=== PATIENT | female | born 1970 | race Caucasian/White ===

== ENCOUNTER 2021-05-16 20:50 | Inpatient (IN) ==
[2021-05-16] MEDS ORDERED: SODIUM CHLORIDE 0.9% 1000ML 1,000 ML IV ONE (22:42)
[2021-05-16 23:15] LABS: Hematocrit (blood only) 22.1 % (37-47); Hemoglobin 6.6 g/dL (12.0-16.0); Mean Corpuscular Hemoglobin 28.4 pg (25-34); Mean Corpuscular Hgb Conc 29.9 g/dL (32-36); Mean Corpuscular Volume 95.3 fL (80-100); Mean Platelet Volume 9.5 fL (7.4-10.4); Nucleated RBC # (auto) 0.17 K/uL (0-0); Platelet Count 312 K/uL (130-400); RDW Standard Deviation 56.4 fL (36.4-46.3); Red Blood Count 2.32 M/uL (4.2-5.4); White Blood Count 17.63 K/uL (4.8-10.8)
[2021-05-16] MEDS ORDERED: SODIUM CHLORIDE 0.9% 250 ML IV PRN (23:19)
[2021-05-16 23:25] LABS: Partial Thromboplastin Ratio 0.8; Partial Thromboplastin Time 21.9 Seconds (21.0-31.0); Prothrombin Time 10.6 Seconds (9.0-12.0)
[2021-05-16 23:29] LABS: Alanine Aminotransferase 19 U/L (12-78); Aspartate Aminotransferase 13 U/L (15-37); BUN Creatinine Ratio 10.9 (10-20); Blood Urea Nitrogen 18 mg/dl (7-18); Calcium 8.4 mg/dl (8.5-10.1); Carbon Dioxide 25 mmol/L (21-32); Chloride 106 mmol/L (98-107); Est GFR (African American) 41.6 ml/min; Est GFR (Non-African American) 35.9 ml/min; Glucose 153 mg/dl (70-99); Potassium 4.2 mmol/L (3.5-5.1); Sodium 136 mmol/L (136-145)
[2021-05-16 23:32] LABS: Albumin Globulin Ratio 0.8 (0.9-2); Alkaline Phosphatase 90 U/L (45-117); Basophils # (auto) 0.03 K/uL (0-0.2); Basophils % (auto) 0.2 %; Bilirubin,Total 0.2 mg/dl (0.2-1); Eosinophils # (auto) 0.03 K/uL (0-0.5); Eosinophils % (auto) 0.2 %; Globulin 3.6 gm/dl (2.5-4.0); Hypochromasia Present; Immature Granulocytes # (auto) 0.07 K/uL (0.00-0.02); Immature Granulocytes % (auto) 0.4 %; Lymphocytes # (auto) 1.99 K/uL (1.2-3.4); Lymphocytes % (auto) 11.3 %; Monocytes % (auto) 4.5 %; Neutrophils # (auto) 14.71 K/uL (1.4-6.5); Neutrophils % (auto) 83.4 %; Polychromasia 1+; Total Protein 6.6 gm/dl (6.4-8.2)
[2021-05-16 23:47] LABS: Pregnancy Test, Serum Negative (Negative)
--- NOTE | 2021-05-17 01:46 | Emergency Department Note ---
History of Present Illness General Chief complaint: Vaginal Bleeding Stated complaint: WEAKNESS, HEAVY VAGINAL BLEEDING Time Seen by Provider: 05/16/21 22:35 History of Present Illness This 50-year-old presents to the ER complaining of heavy vaginal bleeding who feels lightheaded and dizzy now Location: Generalized Quality: Lightheaded Severity: Moderate Duration: Past week Timing: Started a week ago Context: Patient was concerned and came in Modifying factors: better with rest; worse with activity No prior blood transfusion. She has had iron transfusions in the past. Patient denies chest pain, dyspnea, abdominal pain, numbness, tingling. Patient states she has been seeing OB and is supposed to get a cervical ablation for her heavy menstrual cycles. Home Medications Medication Instructions Recorded Confirmed Type amlodipine 5 mg tablet 5 mg PO DAILY 05/17/21 05/17/21 History atorvastatin 20 mg tablet 20 mg PO DAILY 05/17/21 05/17/21 History bupropion HCl 200 mg tablet,12 hr 200 mg PO BID 05/17/21 05/17/21 History sustained-release cyclobenzaprine 10 mg tablet 10 mg PO BID 05/17/21 05/17/21 History furosemide 20 mg tablet 20 mg PO DAILY PRN 05/17/21 05/17/21 History levothyroxine 75 mcg tablet 75 mcg PO DAILYBB 05/17/21 05/17/21 History losartan 100 mg tablet 100 mg PO DAILY 05/17/21 05/17/21 History metformin 500 mg tablet 500 mg PO BID 05/17/21 05/17/21 History metoprolol succinate 100 mg 100 mg PO DAILY 05/17/21 05/17/21 History tablet,extended release 24 hr oxycodone 10 mg tablet 10 mg PO QID PRN 05/17/21 05/17/21 History Allergies Allergy/AdvReac Type Severity Reaction Status Date / Time acetaminophen Allergy Unknown Delayed Verified 05/17/21 00:21 (days later) hangover effect aspirin Allergy Unknown . Verified 05/17/21 00:21 hydrocodone Allergy Unknown Delayed Verified 05/17/21 00:21 (days later) hangover effect red dye Allergy Unknown Itchiness Verified 05/17/21 00:21 and hives Past Med/Surg History Medical History High blood pressure Surgical History History of orthopedic surgery Social History Smoking Status: Never smoker Preferred Language: Ukrainian Feels Safe at Home: Yes Review of Systems A total of 10 systems reviewed and were otherwise negative Physical Exam Vital Signs Vital Signs - 24 hr 05/16/21 21:04 05/16/21 23:02 05/16/21 23:03 Temperature 36.5 C Temperature Source Oral Pulse Rate 67 Pulse Rate [Apical] 69 Respiratory Rate 18 18 Respiratory Depth Normal Blood Pressure 92/52 L Blood Pressure [Left Arm] 140/70 Blood Pressure Mean 65 Blood Pressure Mean [Left Arm] 93 Pulse Oximetry 100 97 98 Oxygen Delivery Method Room Air Room Air Room Air Sepsis Recent Fever Within 48 Hours No Sepsis New/Unexplained Change in Mental Status N/A Sepsis Action Taken by Nursing No Action Required VITALS: Vitals are noted on the nurse's note and reviewed by myself. Vital signs stable. GENERAL: Pleasant female, in no acute distress, nondiaphoretic, well-developed well-nourished. SKIN: Capillary reflex less than 2 seconds. HEENT: Normocephalic. PERRLA. EOMI. Nares patent. Mucous membranes moist. Neck is supple without nuchal rigidity. HEART: Regular rate and rhythm without murmurs gallops or rubs. LUNGS: Clear to auscultation bilaterally without wheezes, rales or rhonchi. No retractions or accessory muscle use. ABDOMEN: Positive bowel sounds x 4. Normal tympanic percussion. Soft, nontender, without masses or organomegaly. Rothman sign negative. No guarding or rebound tenderness. MUSCULOSKELETAL: No gross musculoskeletal defects. NEURO: Patient was alert and oriented to person place and time. No focal neurological deficits. Course Administered Medications Discontinued Medications Sodium Chloride (Nss 1000ml) 1,000 mls @ 999 mls/hr IV .Q1H1M ONE Stop: 05/16/21 23:42 Last Admin: 05/16/21 23:02 Dose: 999 mls/hr Documented by: [id number] Medical Decision Making Medical Records Attestation: I reviewed the patient's medical records. Home Medications Current Medication List: was personally reviewed by me Laboratory Data Attestation: I reviewed the patient's lab results. Result diagrams: 05/16/21 22:55 05/16/21 22:55 Lab Results 05/16/21 05/16/21 05/16/21 Range/Units 22:55 22:55 22:55 WBC 17.63 H (4.8-10.8) K/uL RBC 2.32 L (4.2-5.4) M/uL Hgb 6.6 L* (12.0-16.0) g/dL Hct 22.1 L (37-47) % MCV 95.3 (80-100) fL MCH 28.4 (25-34) pg MCHC 29.9 L (32-36) g/dL RDW Std Deviation 56.4 H (36.4-46.3) fL RDW Coeff of Raul 17.0 H (11.5-14.5) % Plt Count 312 (130-400) K/uL MPV 9.5 (7.4-10.4) fL Immature Gran % (Auto) 0.4 % Neut % (Auto) 83.4 % Lymph % (Auto) 11.3 % [place] % (Auto) 4.5 % Eos % (Auto) 0.2 % Baso % (Auto) 0.2 % Neut # (Auto) 14.71 H (1.4-6.5) K/uL Lymph # (Auto) 1.99 (1.2-3.4) K/uL [place] # (Auto) 0.80 H (0.11-0.59) K/uL Eos # (Auto) 0.03 (0-0.5) K/uL Baso # (Auto) 0.03 (0-0.2) K/uL Immature Gran # (Auto) 0.07 H (0.00-0.02) K/uL Absolute Nucleated RBC 0.17 H (0-0) K/uL Nucleated RBC % (auto) 1.0 % Polychromasia 1+ Hypochromasia Present PT 10.6 (9.0-12.0) Seconds INR 1.0 (0.9-1.1) APTT 21.9 (21.0-31.0) Seconds PTT Ratio 0.8 Sodium (136-145) mmol/L Potassium (3.5-5.1) mmol/L Chloride (98-107) mmol/L Carbon Dioxide (21-32) mmol/L Anion Gap (3-11) BUN (7-18) mg/dl Creatinine (0.6-1.2) mg/dl Est Cr Clr Drug Dosing Est GFR ( Amer) ml/min Est GFR (Non-Af Amer) ml/min BUN/Creatinine Ratio (10-20) Glucose (70-99) mg/dl Calcium (8.5-10.1) mg/dl Total Bilirubin (0.2-1) mg/dl AST (15-37) U/L ALT (12-78) U/L Alkaline Phosphatase (45-117) U/L Total Protein (6.4-8.2) gm/dl Albumin (3.4-5.0) gm/dl Globulin (2.5-4.0) gm/dl Albumin/Globulin Ratio (0.9-2) HCG, Qual (Negative) Blood Type O Positive Blood Type Recheck Antibody Screen NEGATIVE Crossmatch See Detail 05/16/21 05/16/21 05/17/21 Range/Units 22:55 22:55 00:24 WBC (4.8-10.8) K/uL RBC (4.2-5.4) M/uL Hgb (12.0-16.0) g/dL Hct (37-47) % MCV (80-100) fL MCH (25-34) pg MCHC (32-36) g/dL RDW Std Deviation (36.4-46.3) fL RDW Coeff of Raul (11.5-14.5) % Plt Count (130-400) K/uL MPV (7.4-10.4) fL Immature Gran % (Auto) % Neut % (Auto) % Lymph % (Auto) % [place] % (Auto) % Eos % (Auto) % Baso % (Auto) % Neut # (Auto) (1.4-6.5) K/uL Lymph # (Auto) (1.2-3.4) K/uL [place] # (Auto) (0.11-0.59) K/uL Eos # (Auto) (0-0.5) K/uL Baso # (Auto) (0-0.2) K/uL Immature Gran # (Auto) (0.00-0.02) K/uL Absolute Nucleated RBC (0-0) K/uL Nucleated RBC % (auto) % Polychromasia Hypochromasia PT (9.0-12.0) Seconds INR (0.9-1.1) APTT (21.0-31.0) Seconds PTT Ratio Sodium 136 (136-145) mmol/L Potassium 4.2 (3.5-5.1) mmol/L Chloride 106 (98-107) mmol/L Carbon Dioxide 25 (21-32) mmol/L Anion Gap 5.0 (3-11) BUN 18 (7-18) mg/dl Creatinine 1.63 H (0.6-1.2) mg/dl Est Cr Clr Drug Dosing Not Reportable Est GFR ( Amer) 41.6 ml/min Est GFR (Non-Af Amer) 35.9 ml/min BUN/Creatinine Ratio 10.9 (10-20) Glucose 153 H (70-99) mg/dl Calcium 8.4 L (8.5-10.1) mg/dl Total Bilirubin 0.2 (0.2-1) mg/dl AST 13 L (15-37) U/L ALT 19 (12-78) U/L Alkaline Phosphatase 90 (45-117) U/L Total Protein 6.6 (6.4-8.2) gm/dl Albumin 3.0 L (3.4-5.0) gm/dl Globulin 3.6 (2.5-4.0) gm/dl Albumin/Globulin Ratio 0.8 L (0.9-2) HCG, Qual Negative (Negative) Blood Type Blood Type Recheck O Positive Antibody Screen Crossmatch Imaging Data Attestation: I personally reviewed and interpreted this imaging study as follows: MDM Narrative Prior records/ancillary studies reviewed. Triage Nursing notes reviewed. Additional history obtained from nursing The patient's history was concerning for vaginal bleeding and abdominal pain. Differential diagnosis: Etiologies such as ectopic , dysfunction uterine bleeding, bleeding dyscrasia, trauma, infection, as well as others were entertained. Physical examination: As above. Vitals signs revealed stable. ER treatment provided: IV fluids, patient was typed and crossmatched for 2 units. Patient was consented On reassessment the patient felt better. Diagnostic interpretation by me: The labs revealed the Patient was more anemic than baseline. I did review the [facility] system Patient was typed and crossmatched for 2 units Imaging studies: US PELVIC/ENDOVAG: Limited examination due to patient cooperation and body habitus. Enlarged uterus measuring 10.9 x 6.8 x 7.1 cm. Diffuse thickening of the endometrial echo complex which measures 2.8 cm in thickness. There is internal vascularity. Differential considerations include endometrial hyperplasia, carcinoma, and polyp. Right ovary not visualized. Left ovary visualized only on transabdominal images and without discrete abnormality. No evidence of adnexal mass. No free fluid. Radiologist: Kimberlyn Hurtado M.D. Consultation: A consultation was placed with hospitalist the case was discussed and diagnostics were reviewed. Patient will be admitted to their service. This appears to be consistent with symptomatic anemia with persistent vaginal bleeding for quite some time. Patient was typed and crossmatched for 2 units. She was consented. Medicine was consulted. She will be evaluated for admission. By the evaluation outlined above emergent etiologies such as bleeding dyscrasia, ectopic , trauma, as well as others were deemed relatively unlikely. The pt informed about the findings as listed above. All questions were answered and pleased with the treatment. The chart was completed utilizing [employer] Speech voice recognition software. Grammatical errors, random word insertions, pronoun errors, and incomplete sentences are an occassional consequence of this system due to software limitations, ambient noise, and hardware issues. Any formal questions or concerns about the content, text, or information contained within the body of this dictation should be directly addressed to the physician assistant loan processor for clarification. Impression & Plan Anemia, Dysfunctional uterine bleeding Discharge Plan Visit Data Chief Complaint: Vaginal Bleeding Stated Complaint: WEAKNESS, HEAVY VAGINAL BLEEDING ED Provider: Dionicio Paz ED Midlevel Provider: Dilma Barraza Discharge Problem: Anemia, Dysfunctional uterine bleeding Patient Disposition: Admitted As Inpatient Condition: Fair Forms Stand Alone Forms: My [facility] [employer] Prescriptions Prescriptions: No Action cyclobenzaprine 10 mg tablet 10 mg PO BID RF: 0 atorvastatin 20 mg tablet 20 mg PO DAILY RF: 0 oxycodone 10 mg tablet 10 mg PO QID PRN (Reason: Severe Pain (Scale Score 7-10)) RF: 0 metoprolol succinate 100 mg tablet extended release 24 hr 100 mg PO DAILY RF: 0 levothyroxine 75 mcg tablet 75 mcg PO DAILYBB RF: 0 losartan 100 mg tablet 100 mg PO DAILY RF: 0 furosemide 20 mg tablet 20 mg PO DAILY PRN (Reason: Fluid Retention) RF: 0 bupropion HCl 200 mg tablet sustained-release 12 hr 200 mg PO BID RF: 0 metformin 500 mg tablet 500 mg PO BID RF: 0 amlodipine 5 mg tablet 5 mg PO DAILY RF: 0 Referrals Referrals: Jonathan Wild DO [Primary Care Provider] -
--- NOTE | 2021-05-17 04:20 | History and Physical Report ---
DATE OF ADMISSION: 05/17/2021. CHIEF COMPLAINT: Anemia and vaginal bleeding. HISTORY OF PRESENT ILLNESS: A 50-year-old female with past medical history significant for hypothyroidism; prediabetes; polycystic ovary; benign neoplasm of pituitary gland; allergic rhinitis; asthma, mild intermittent, well controlled; hypertension; morbid obesity; iron deficiency anemia; chronic kidney disease stage III; excessive bleeding in premenopausal period; fibromyalgia; osteoarthritis; depression; history of chronic narcotic use. Presents with heavy vaginal bleeding. The patient says she is anemic for 2 years. She was supposed to follow with [facility] and RICHARD guo. Currently she is trying to get appointment with [facility] [facility], but could not get because they are backed up. Since last one week, she is having heavy menstrual bleeding, heavy periods, and she was feeling dizzy when getting up and she called [facility] [facility] office and was advised to come to the ER. Currently resting comfortably and hemodynamically stable. Denies any shortness of breath, no chest pain. She says she gets pounding feeling in the head. No blurred visions. Has some runny nose. No sore throat, no cough, no difficulty swallowing. Appetite is okay. No chest pain. Had some chest discomfort last week, but currently no chest pain, no abdominal pain currently. Sometimes gets abdominal cramps. Normal bowel and bladder movements. Denies any blood in stool or black stools. Denies any hematuria or burning micturitions. No rash. ALLERGIES: ACETAMINOPHEN, ASPIRIN, HYDROCODONE, RED DYE. PAST MEDICAL HISTORY: As mentioned above. PAST SURGICAL HISTORY: Biopsy of uterus, carpal tunnel surgery, repair of the ruptured Achilles tendon. MEDICATIONS: The patient is on amlodipine 5 mg p.o. daily, atorvastatin 20 mg p.o. daily, bupropion 200 mg p.o. b.i.d., cyclobenzaprine 10 mg p.o. b.i.d., Lasix 20 mg p.o. daily p.r.n., levothyroxine 75 mcg p.o. daily, losartan 100 mg p.o. daily, metformin 500 mg p.o. b.i.d., metoprolol succinate 100 mg p.o. daily, oxycodone 10 mg p.o. q.i.d. p.r.n. FAMILY HISTORY: Significant for mother has arthritis and breast cancer, father has heart disorder and kidney disease, sister has psoriasis. SOCIAL HISTORY: No smoking. Alcohol, rarely. No drug use. REVIEW OF SYSTEMS: As per HPI. Rest of review of systems is negative. PHYSICAL EXAMINATION: GENERAL: The patient is obese, not in acute distress. VITAL SIGNS: Temperature 36.8, pulse 76, respiratory rate 18, blood pressure 115/67, oxygen 99% on room air. HEENT: Pupils equal, round and reactive to light. Oral mucosa moist. NECK: No JVD, no neck masses. CARDIOVASCULAR: S1 and S2 heard. Regular rate and rhythm. No murmur, no gallop. RESPIRATORY SYSTEM: Normal AP diameter. No accessory muscle use. No wheezing, no crackles. ABDOMEN: Soft, bowel sounds present, nontender, no distention. CENTRAL NERVOUS SYSTEM: Cranial nerves II-XII grossly intact, nonfocal. EXTREMITIES: No edema, no erythema. LABORATORY DATA: WBC 17.6, hemoglobin 6.6, hematocrit 22.1, platelets 312. PT 10.6, INR 1, APTT 21.9. Sodium 136, potassium 4.2, chloride 106, bicarb 25, BUN 18, creatinine 1.6, serum glucose 153, calcium 8.4, total bilirubin 0.2, AST 13, ALT 19, alkaline phosphatase 90. IMAGING DATA: Pelvic ultrasound results pending. ASSESSMENT AND PLAN: This is a 50-year-old female who presents with ongoing vaginal bleeding and anemia. 1. Acute blood loss anemia from vaginal bleeding: ER ordered 2 units of PRBCs, which we will give and then follow H and H q. 6 hours. She has symptomatic anemia with dizziness. Monitor in the med tele. 2. Heavy vaginal bleeding: Await pelvic ultrasound report. Consult [facility] [facility]. We will keep n.p.o. until seen by [facility]. 3. Acute kidney injury on chronic kidney disease stage III: Baseline creatinine of 1, presently with creatinine of 1.6. Getting fluids. Avoid any nephrotoxic agents. Follow the labs in the a.m. 4. History of diabetes: Hold metformin. Placed on insulin sliding scale. Follow the blood sugars. 5. History of hypotension: Continue her amlodipine. Will hold the losartan. Continue metoprolol succinate. Will monitor the blood pressure. Holding losartan for acute kidney injury. 6. Depression: Continue bupropion. 7. Hyperlipidemia: Continue statin. 8. Prediabetes: Holding metformin. Follow HbA1c levels, Placed on insulin sliding scale. 9. Deep venous thrombosis prophylaxis: Sequential compression devices. DISPOSITION: Closely monitor in the med tele. Expect to discharge home and follow with family doctor. Job ID: [id number] SCARLETT
[2021-05-17] MEDS ORDERED: oxyCODONE HCL IR 5 MG TAB (IMMEDIATE RELEASE) PO PRN (05:11)
[2021-05-17] MEDS ORDERED: FUROSEMIDE 20 MG TAB PO PRN ×2 (05:11)
[2021-05-17] MEDS ORDERED: NITROGLYCERIN SL 0.4 MG/TAB TAB SL PRN (05:11)
[2021-05-17] MEDS ORDERED: POLYETHYLENE (MIRALAX) 17 GM PACK PO PRN (05:11)
[2021-05-17] MEDS ORDERED: SODIUM CHLORIDE 0.9% 250 ML IV PRN (05:11)
[2021-05-17] MEDS ORDERED: ONDANSETRON INJ 2 MG/ML 2 ML VIAL IV PRN (05:11)
[2021-05-17] MEDS: SODIUM CHLORIDE 0.9% 1000ML 1,000 ML IV SCH ×3 (06:22→23:20)
[2021-05-17 07:57] LABS: Estimated Average Glucose 108 mg/dl; Hemoglobin A1C 5.4 % (4.5-5.6)
[2021-05-17] MEDS: INSULIN ASPART 100 UNITS/ML 3 ML PEN SC SCH ×4 (08:36→20:49)
[2021-05-17] MEDS: METOPROLOL SUCC 50MG EXT REL TAB PO SCH (08:37)
[2021-05-17] MEDS: LEVOTHYROXINE SODIUM 75 MCG TABLET PO SCH (08:38)
[2021-05-17] MEDS: ATORVASTATIN 20 MG TAB PO SCH (08:38)
[2021-05-17] MEDS: amLODIPine BESYLATE 5 MG TAB PO SCH (08:38)
[2021-05-17] MEDS: buPROPion SR 100 MG TABCR PO SCH ×2 (08:38→20:47)
[2021-05-17] MEDS: CYCLOBENZAPRINE HCL 10 MG TAB PO SCH ×3 (08:38→21:06)
[2021-05-17] MEDS ORDERED: LOSARTAN POTASSIUM 50 MG TAB PO SCH ×2 (09:00)
--- NOTE | 2021-05-17 09:13 | Ultrasound Report ---
PELVIC ULTRASOUND CLINICAL HISTORY: heavy bleeding/pain COMPARISON STUDY: None. TECHNIQUE: Transabdominal and transvaginal sonography of the pelvis was performed. FINDINGS: This study is compromised by suboptimal penetration. Uterus is enlarged, measuring 10.9 x 6 .8 x 7.1 cm. Endometrium is thickened and heterogeneous, measuring 2.8 cm in thickness. The right ova ry was not visualized. The left ovary measured approximately 1.9 x 1.3 x 1.6 cm. No free fluid was no brenda. No adnexal mass was identified. Color flow is identified within the left ovary. IMPRESSION: 1. Thickened, heterogeneous endometrium measuring 2.8 cm in thickness. This could be correlated with phase of menstrual cycle/menopausal status. Differential considerations include endometrial hyperplas ia, polyp and carcinoma. Nonemergent Gynecologic consultation is recommended. 2. Exam compromised by suboptimal penetration. 3. Nonvisualization of the right ovary. ACT 112: Negative or not required by law. Electronically signed by: Deuce Keita M.D. 05/17/2021 9:12 AM
[2021-05-17 11:29] LABS: Basophils # (auto) 0.04 K/uL (0-0.2); Basophils % (auto) 0.3 %; Eosinophils # (auto) 0.14 K/uL (0-0.5); Eosinophils % (auto) 0.9 %; Hematocrit (blood only) 25.1 % (37-47); Hemoglobin 7.8 g/dL (12.0-16.0); Immature Granulocytes # (auto) 0.05 K/uL (0.00-0.02); Immature Granulocytes % (auto) 0.3 %; Lymphocytes # (auto) 2.82 K/uL (1.2-3.4); Lymphocytes % (auto) 18.5 %; Mean Corpuscular Hemoglobin 28.5 pg (25-34); Mean Corpuscular Hgb Conc 31.1 g/dL (32-36); Mean Corpuscular Volume 91.6 fL (80-100); Mean Platelet Volume 9.3 fL (7.4-10.4); Monocytes # (auto) 1.46 K/uL (0.11-0.59); Monocytes % (auto) 9.6 %; Neutrophils % (auto) 70.4 %; Nucleated RBC # (auto) 0.19 K/uL (0-0); Nucleated RBC % (auto) 1.3 %; Platelet Count 257 K/uL (130-400); RDW Coefficient of Variation 17.1 % (11.5-14.5); RDW Standard Deviation 55.4 fL (36.4-46.3); Red Blood Count 2.74 M/uL (4.2-5.4); White Blood Count 15.21 K/uL (4.8-10.8)
[2021-05-17 11:57] LABS: BUN Creatinine Ratio 13.1 (10-20); Creatinine Clr Calc Pharmacy 70.7 ml/min; Est GFR (African American) 49.5 ml/min; Est GFR (Non-African American) 42.7 ml/min; Magnesium 2.2 mg/dl (1.8-2.4); Potassium 3.6 mmol/L (3.5-5.1)
[2021-05-17 12:31] LABS: Anisocytosis Present; Hypochromasia Present; Polychromasia 1+
--- NOTE | 2021-05-17 14:28 | Hospitalist Progress Note ---
Date of Service May 17, 2021 Assessment & Plan (1) Dysfunctional uterine bleeding: (2) Anemia: Plan: Pt is a 50 y/o F who presents with ongoing vaginal bleeding and anemia. 1. Acute blood loss anemia from vaginal bleeding: ER ordered 2 units of PRBCs, which were finished. Current Hgb 7.8 follow H and H q. 6 hours. She has symptomatic anemia with dizziness. Monitor in the [employer] tele. Dizziness now improved. 2. Heavy vaginal bleeding: Pelvic US obtained - 1. Thickened, heterogeneous endometrium measuring 2.8 cm in thickness. This could be correlated with phase of menstrual cycle/menopausal status. Differential considerations include endometrial hyperplasia, polyp and carcinoma. Nonemergent Gynecologic consultation is recommended. 2. Exam compromised by suboptimal penetration. 3. Nonvisualization of the right ovary. Gynecology consulted - awaiting their input NPO after MN 3. Acute kidney injury on chronic kidney disease stage III: Baseline creatinine of 1 Creatinine on admission 1.6. Now down to 1.4. Getting fluids. Avoid any nephrotoxic agents. Follow BMP 4. Prediabetes/diabetes: Current Hgb A1c 5.4% Hold metformin. Placed on insulin sliding scale. Follow the blood sugars. 5. HTN: Continue her amlodipine. Will hold the losartan. Continue metoprolol succinate. Will monitor the blood pressure. Holding losartan for acute kidney injury. 6. Depression: Continue bupropion. 7. Hyperlipidemia: Continue statin. DVT prophylaxis: SCDs DISPOSITION: Closely monitor in the med tele. Expect to discharge home and follow with family doctor. Admission and Anticipated Discharge Date Admission Date: May 17, 2021 Subjective Patient seen in follow-up of vaginal bleeding Received blood transfusion, and underwent pelvic ultrasound earlier today Gynecology evaluation pending Currently in bed, in no acute distress, says her dizziness is much improved now Denies any chest pain, shortness of breath, abdominal pain, nausea vomiting Patient is inquiring about possible procedure versus going home Review of Systems Review of Systems: All systems reviewed & are unremarkable except as noted in Subjective Physical Exam Physical Exam: GENERAL: morbidly obese F, in no acute distress. HEENT: NC/AT, EOMI, Pupils equal, round and reactive to light. NECK: No JVD, no neck masses. CARDIOVASCULAR: S1 and S2 heard. Regular rate and rhythm. No murmur, no gallop. RESPIRATORY: Normal AP diameter. No accessory muscle use. No wheezing, no crackles. ABDOMEN: Soft, bowel sounds present, nontender, no distention. NEURO: Alert and oriented x3, answer questions appropriately, no facial asymmetry, speech fluent, moves extremities EXTREMITIES: No edema, no erythema. Results & Data Results & Data ([facility] [place]) Vital Signs (Past 12 Hours) Vital Signs Temp Pulse Pulse Resp BP BP Pulse Ox 05/17/21 11:50 37.3 C 71 18 143/62 H 96 05/17/21 10:05 37.1 C 71 16 114/60 100 05/17/21 10:04 37.1 C 71 16 114/60 100 05/17/21 09:30 37.0 C 72 16 128/74 99 05/17/21 08:30 37.0 C 72 18 137/74 100 05/17/21 08:00 37.0 C 70 16 132/72 99 05/17/21 07:45 36.9 C 74 18 146/76 H 99 05/17/21 07:34 71 05/17/21 07:26 37.1 C 71 18 126/49 L 100 05/17/21 06:09 69 05/17/21 05:26 37.2 C 73 18 130/68 98 05/17/21 05:24 37.2 C 72 20 130/68 98 05/17/21 04:21 78 16 124/42 L 100 05/17/21 03:21 81 18 113/66 100 05/17/21 02:51 78 18 119/47 L 05/17/21 02:36 36.9 C 75 18 113/66 100 Laboratory Results 05/17/21 05/17/21 05/17/21 Range/Units 11:43 11:19 11:19 WBC 15.21 H (4.8-10.8) K/uL RBC 2.74 L (4.2-5.4) M/uL Hgb 7.8 L (12.0-16.0) g/dL Hct 25.1 L (37-47) % MCV 91.6 (80-100) fL MCH 28.5 (25-34) pg MCHC 31.1 L (32-36) g/dL RDW Std Deviation 55.4 H (36.4-46.3) fL RDW Coeff of Raul 17.1 H (11.5-14.5) % Plt Count 257 (130-400) K/uL MPV 9.3 (7.4-10.4) fL Immature Gran % (Auto) 0.3 % Neut % (Auto) 70.4 % Lymph % (Auto) 18.5 % [place] % (Auto) 9.6 % Eos % (Auto) 0.9 % Baso % (Auto) 0.3 % Neut # (Auto) 10.70 H (1.4-6.5) K/uL Lymph # (Auto) 2.82 (1.2-3.4) K/uL [place] # (Auto) 1.46 H (0.11-0.59) K/uL Eos # (Auto) 0.14 (0-0.5) K/uL Baso # (Auto) 0.04 (0-0.2) K/uL Immature Gran # (Auto) 0.05 H (0.00-0.02) K/uL Absolute Nucleated RBC 0.19 H (0-0) K/uL Nucleated RBC % (auto) 1.3 % Polychromasia 1+ Hypochromasia Present Anisocytosis Present PT (9.0-12.0) Seconds INR (0.9-1.1) APTT (21.0-31.0) Seconds PTT Ratio Sodium 137 (136-145) mmol/L Potassium 3.6 (3.5-5.1) mmol/L Chloride 109 H (98-107) mmol/L Carbon Dioxide 23 (21-32) mmol/L Anion Gap 5.0 (3-11) BUN 18 (7-18) mg/dl Creatinine 1.41 H (0.6-1.2) mg/dl Est Cr Clr Drug Dosing 70.7 Est GFR ( Amer) 49.5 ml/min Est GFR (Non-Af Amer) 42.7 ml/min BUN/Creatinine Ratio 13.1 (10-20) Glucose 111 H (70-99) mg/dl POC Glucose 122 H (70-99) mg/dl Estimat Average Glucose mg/dl Hemoglobin A1c (4.5-5.6) % Calcium 8.0 L (8.5-10.1) mg/dl Magnesium 2.2 (1.8-2.4) mg/dl Total Bilirubin (0.2-1) mg/dl AST (15-37) U/L ALT (12-78) U/L Alkaline Phosphatase (45-117) U/L Total Protein (6.4-8.2) gm/dl Albumin (3.4-5.0) gm/dl Globulin (2.5-4.0) gm/dl Albumin/Globulin Ratio (0.9-2) HCG, Qual (Negative) COVID-19 Eval Order SARS-CoV-2 (PCR) (Negative) Blood Type Blood Type Recheck Antibody Screen Crossmatch 05/17/21 05/17/21 05/17/21 Range/Units 08:16 02:40 02:40 WBC (4.8-10.8) K/uL RBC (4.2-5.4) M/uL Hgb (12.0-16.0) g/dL Hct (37-47) % MCV (80-100) fL MCH (25-34) pg MCHC (32-36) g/dL RDW Std Deviation (36.4-46.3) fL RDW Coeff of Raul (11.5-14.5) % Plt Count (130-400) K/uL MPV (7.4-10.4) fL Immature Gran % (Auto) % Neut % (Auto) % Lymph % (Auto) % [place] % (Auto) % Eos % (Auto) % Baso % (Auto) % Neut # (Auto) (1.4-6.5) K/uL Lymph # (Auto) (1.2-3.4) K/uL [place] # (Auto) (0.11-0.59) K/uL Eos # (Auto) (0-0.5) K/uL Baso # (Auto) (0-0.2) K/uL Immature Gran # (Auto) (0.00-0.02) K/uL Absolute Nucleated RBC (0-0) K/uL Nucleated RBC % (auto) % Polychromasia Hypochromasia Anisocytosis PT (9.0-12.0) Seconds INR (0.9-1.1) APTT (21.0-31.0) Seconds PTT Ratio Sodium (136-145) mmol/L Potassium (3.5-5.1) mmol/L Chloride (98-107) mmol/L Carbon Dioxide (21-32) mmol/L Anion Gap (3-11) BUN (7-18) mg/dl Creatinine (0.6-1.2) mg/dl Est Cr Clr Drug Dosing Est GFR ( Amer) ml/min Est GFR (Non-Af Amer) ml/min BUN/Creatinine Ratio (10-20) Glucose (70-99) mg/dl POC Glucose 103 H (70-99) mg/dl Estimat Average Glucose mg/dl Hemoglobin A1c (4.5-5.6) % Calcium (8.5-10.1) mg/dl Magnesium (1.8-2.4) mg/dl Total Bilirubin (0.2-1) mg/dl AST (15-37) U/L ALT (12-78) U/L Alkaline Phosphatase (45-117) U/L Total Protein (6.4-8.2) gm/dl Albumin (3.4-5.0) gm/dl Globulin (2.5-4.0) gm/dl Albumin/Globulin Ratio (0.9-2) HCG, Qual (Negative) COVID-19 Eval Order Covid19 at [facility] SARS-CoV-2 (PCR) NEGATIVE (Negative) Blood Type Blood Type Recheck Antibody Screen Crossmatch 05/17/21 05/16/21 05/16/21 Range/Units 00:24 22:55 22:55 WBC (4.8-10.8) K/uL RBC (4.2-5.4) M/uL Hgb (12.0-16.0) g/dL Hct (37-47) % MCV (80-100) fL MCH (25-34) pg MCHC (32-36) g/dL RDW Std Deviation (36.4-46.3) fL RDW Coeff of Raul (11.5-14.5) % Plt Count (130-400) K/uL MPV (7.4-10.4) fL Immature Gran % (Auto) % Neut % (Auto) % Lymph % (Auto) % [place] % (Auto) % Eos % (Auto) % Baso % (Auto) % Neut # (Auto) (1.4-6.5) K/uL Lymph # (Auto) (1.2-3.4) K/uL [place] # (Auto) (0.11-0.59) K/uL Eos # (Auto) (0-0.5) K/uL Baso # (Auto) (0-0.2) K/uL Immature Gran # (Auto) (0.00-0.02) K/uL Absolute Nucleated RBC (0-0) K/uL Nucleated RBC % (auto) % Polychromasia Hypochromasia Anisocytosis PT (9.0-12.0) Seconds INR (0.9-1.1) APTT (21.0-31.0) Seconds PTT Ratio Sodium (136-145) mmol/L Potassium (3.5-5.1) mmol/L Chloride (98-107) mmol/L Carbon Dioxide (21-32) mmol/L Anion Gap (3-11) BUN (7-18) mg/dl Creatinine (0.6-1.2) mg/dl Est Cr Clr Drug Dosing Est GFR ( Amer) ml/min Est GFR (Non-Af Amer) ml/min BUN/Creatinine Ratio (10-20) Glucose (70-99) mg/dl POC Glucose (70-99) mg/dl Estimat Average Glucose 108 mg/dl Hemoglobin A1c 5.4 (4.5-5.6) % Calcium (8.5-10.1) mg/dl Magnesium (1.8-2.4) mg/dl Total Bilirubin (0.2-1) mg/dl AST (15-37) U/L ALT (12-78) U/L Alkaline Phosphatase (45-117) U/L Total Protein (6.4-8.2) gm/dl Albumin (3.4-5.0) gm/dl Globulin (2.5-4.0) gm/dl Albumin/Globulin Ratio (0.9-2) HCG, Qual Negative (Negative) COVID-19 Eval Order SARS-CoV-2 (PCR) (Negative) Blood Type Blood Type Recheck O Positive Antibody Screen Crossmatch 05/16/21 05/16/21 05/16/21 Range/Units 22:55 22:55 22:55 WBC 17.63 H (4.8-10.8) K/uL RBC 2.32 L (4.2-5.4) M/uL Hgb 6.6 L* (12.0-16.0) g/dL Hct 22.1 L (37-47) % MCV 95.3 (80-100) fL MCH 28.4 (25-34) pg MCHC 29.9 L (32-36) g/dL RDW Std Deviation 56.4 H (36.4-46.3) fL RDW Coeff of Raul 17.0 H (11.5-14.5) % Plt Count 312 (130-400) K/uL MPV 9.5 (7.4-10.4) fL Immature Gran % (Auto) 0.4 % Neut % (Auto) 83.4 % Lymph % (Auto) 11.3 % [place] % (Auto) 4.5 % Eos % (Auto) 0.2 % Baso % (Auto) 0.2 % Neut # (Auto) 14.71 H (1.4-6.5) K/uL Lymph # (Auto) 1.99 (1.2-3.4) K/uL [place] # (Auto) 0.80 H (0.11-0.59) K/uL Eos # (Auto) 0.03 (0-0.5) K/uL Baso # (Auto) 0.03 (0-0.2) K/uL Immature Gran # (Auto) 0.07 H (0.00-0.02) K/uL Absolute Nucleated RBC 0.17 H (0-0) K/uL Nucleated RBC % (auto) 1.0 % Polychromasia 1+ Hypochromasia Present Anisocytosis PT 10.6 (9.0-12.0) Seconds INR 1.0 (0.9-1.1) APTT 21.9 (21.0-31.0) Seconds PTT Ratio 0.8 Sodium 136 (136-145) mmol/L Potassium 4.2 (3.5-5.1) mmol/L Chloride 106 (98-107) mmol/L Carbon Dioxide 25 (21-32) mmol/L Anion Gap 5.0 (3-11) BUN 18 (7-18) mg/dl Creatinine 1.63 H (0.6-1.2) mg/dl Est Cr Clr Drug Dosing Not Reportable Est GFR ( Amer) 41.6 ml/min Est GFR (Non-Af Amer) 35.9 ml/min BUN/Creatinine Ratio 10.9 (10-20) Glucose 153 H (70-99) mg/dl POC Glucose (70-99) mg/dl Estimat Average Glucose mg/dl Hemoglobin A1c (4.5-5.6) % Calcium 8.4 L (8.5-10.1) mg/dl Magnesium (1.8-2.4) mg/dl Total Bilirubin 0.2 (0.2-1) mg/dl AST 13 L (15-37) U/L ALT 19 (12-78) U/L Alkaline Phosphatase 90 (45-117) U/L Total Protein 6.6 (6.4-8.2) gm/dl Albumin 3.0 L (3.4-5.0) gm/dl Globulin 3.6 (2.5-4.0) gm/dl Albumin/Globulin Ratio 0.8 L (0.9-2) HCG, Qual (Negative) COVID-19 Eval Order SARS-CoV-2 (PCR) (Negative) Blood Type Blood Type Recheck Antibody Screen Crossmatch 05/16/21 Range/Units 22:55 WBC (4.8-10.8) K/uL RBC (4.2-5.4) M/uL Hgb (12.0-16.0) g/dL Hct (37-47) % MCV (80-100) fL MCH (25-34) pg MCHC (32-36) g/dL RDW Std Deviation (36.4-46.3) fL RDW Coeff of Raul (11.5-14.5) % Plt Count (130-400) K/uL MPV (7.4-10.4) fL Immature Gran % (Auto) % Neut % (Auto) % Lymph % (Auto) % [place] % (Auto) % Eos % (Auto) % Baso % (Auto) % Neut # (Auto) (1.4-6.5) K/uL Lymph # (Auto) (1.2-3.4) K/uL [place] # (Auto) (0.11-0.59) K/uL Eos # (Auto) (0-0.5) K/uL Baso # (Auto) (0-0.2) K/uL Immature Gran # (Auto) (0.00-0.02) K/uL Absolute Nucleated RBC (0-0) K/uL Nucleated RBC % (auto) % Polychromasia Hypochromasia Anisocytosis PT (9.0-12.0) Seconds INR (0.9-1.1) APTT (21.0-31.0) Seconds PTT Ratio Sodium (136-145) mmol/L Potassium (3.5-5.1) mmol/L Chloride (98-107) mmol/L Carbon Dioxide (21-32) mmol/L Anion Gap (3-11) BUN (7-18) mg/dl Creatinine (0.6-1.2) mg/dl Est Cr Clr Drug Dosing Est GFR ( Amer) ml/min Est GFR (Non-Af Amer) ml/min BUN/Creatinine Ratio (10-20) Glucose (70-99) mg/dl POC Glucose (70-99) mg/dl Estimat Average Glucose mg/dl Hemoglobin A1c (4.5-5.6) % Calcium (8.5-10.1) mg/dl Magnesium (1.8-2.4) mg/dl Total Bilirubin (0.2-1) mg/dl AST (15-37) U/L ALT (12-78) U/L Alkaline Phosphatase (45-117) U/L Total Protein (6.4-8.2) gm/dl Albumin (3.4-5.0) gm/dl Globulin (2.5-4.0) gm/dl Albumin/Globulin Ratio (0.9-2) HCG, Qual (Negative) COVID-19 Eval Order SARS-CoV-2 (PCR) (Negative) Blood Type O Positive Blood Type Recheck Antibody Screen NEGATIVE Crossmatch See Detail Medications Administered Current Inpatient Medications Amlodipine Besylate (Amlodipine Besylate 5 Mg Tab) 5 mg PO DAILY SIVAKUMAR Stop: 06/16/21 08:59 Last Admin: 05/17/21 08:38 Dose: 5 mg Documented by: Atorvastatin Calcium (Atorvastatin 20 Mg Tab) 20 mg PO DAILY SIVAKUMAR Stop: 06/16/21 08:59 Last Admin: 05/17/21 08:38 Dose: 20 mg Documented by: Bupropion HCl (Bupropion Sr 100 Mg Tabcr) 200 mg PO BID SIVAKUMAR Stop: 06/16/21 08:59 Last Admin: 05/17/21 08:38 Dose: 200 mg Documented by: Cyclobenzaprine HCl (Cyclobenzaprine Hcl 10 Mg Tab) 10 mg PO BID [facility] Stop: 06/16/21 08:59 Last Admin: 05/17/21 08:38 Dose: Not Given Documented by: Furosemide (Furosemide 20 Mg Tab) 20 mg PO DAILY PRN PRN Reason: Fluid Retention Stop: 06/16/21 05:10 Last Admin: 05/17/21 08:37 Dose: 20 mg Documented by: Sodium Chloride (Nss 1000ml) 1,000 mls @ 125 mls/hr IV .Q8H SIVAKUMAR Stop: 06/16/21 05:10 Last Admin: 05/17/21 06:22 Dose: 125 mls/hr Documented by: Sodium Chloride (Nss) 250 mls @ 15 mls/hr IV .[id number] PRN PRN Reason: For Transfusion Stop: 06/16/21 05:10 Insulin Aspart (Insulin Aspart 100 Units/Ml 3 Ml Pen) 0 units SC ACHS [facility] Stop: 06/16/21 07:29 Last Admin: 05/17/21 12:00 Dose: Not Given Documented by: Levothyroxine Sodium (Levothyroxine Sodium 75 Mcg Tablet) 75 mcg PO DAILYBB [facility] Stop: 06/16/21 06:29 Last Admin: 05/17/21 08:38 Dose: 75 mcg Documented by: Losartan Potassium (Losartan Potassium 50 Mg Tab) 100 mg PO DAILY SIVAKUMAR Stop: 06/16/21 08:59 Last Admin: 05/17/21 08:37 Dose: 100 mg Documented by: Metoprolol Succinate (Metoprolol Succ 50mg Ext Rel Tab) 100 mg PO DAILY [facility] Stop: 06/16/21 08:59 Last Admin: 05/17/21 08:37 Dose: 100 mg Documented by: Nitroglycerin (Nitroglycerin Sl 0.4 Mg/Tab Tab) 0.4 mg SL UD PRN PRN Reason: Chest Pain Stop: 06/16/21 05:10 Ondansetron HCl (Ondansetron Inj 2 Mg/Ml 2 Ml Vial) 4 mg IV Q6H PRN PRN Reason: Nausea Stop: 06/16/21 05:10 Oxycodone HCl (Oxycodone Hcl Ir 5 Mg Tab (Immediate Release)) 10 mg PO QID PRN PRN Reason: Severe Pain (Scale Score 7-10) Stop: 05/31/21 05:10 Polyethylene Glycol (Polyethylene (Miralax) 17 Gm Pack) 17 gm PO DAILY PRN PRN Reason: Constipation Stop: 06/16/21 05:10 (1) Anemia Anemia type: unspecified type Qualified Code(s): D64.9 - Anemia, unspecified
[2021-05-17] MEDS ORDERED: Nursing to Pharmacy Communication SCH (15:15)
[2021-05-17] MEDS: VENLAFAXINE HCL XR 150 MG CAPXR PO SCH (15:28)
[2021-05-17 17:57] LABS: Hematocrit (blood only) 26.1 % (37-47)
[2021-05-17 19:37] LABS: Hematocrit (blood only) 25.3 % (37-47)
[2021-05-18] MEDS: LEVOTHYROXINE SODIUM 75 MCG TABLET PO SCH (05:55)
[2021-05-18 06:03] LABS: Appearance Urine Cloudy (Clear); Bacteria Urine Automated Negative (Negative); Bilirubin Urine Negative (Negative); Blood Urine 3+ (Negative); Color Urine Orange; Epithelial Cell Urine Auto 20-30 /lpf (0-5); Glucose Urine UA Negative (Negative); Ketones Urine Negative (Negative); Leukocyte Esterase Urine 2+ (Negative); Nitrite Urine Negative (Negative); Protein Urine Trace (Negative); RBC Urine Automated >30 /hpf (0-4); Specific Gravity Urine 1.014 (1.000-1.030); Urobilinogen Urine Negative (Negative); WBC Urine Automated >30 /hpf (0-5)
[2021-05-18 06:49] LABS: Hematocrit (blood only) 23.7 % (37-47); Hemoglobin 7.5 g/dL (12.0-16.0); Mean Corpuscular Hgb Conc 31.6 g/dL (32-36); Mean Corpuscular Volume 91.5 fL (80-100); Mean Platelet Volume 9.1 fL (7.4-10.4); Platelet Count 204 K/uL (130-400); RDW Coefficient of Variation 17.6 % (11.5-14.5); RDW Standard Deviation 57.7 fL (36.4-46.3); Red Blood Count 2.59 M/uL (4.2-5.4); White Blood Count 8.87 K/uL (4.8-10.8)
[2021-05-18 07:13] LABS: BUN Creatinine Ratio 15.1 (10-20); Calcium 8.2 mg/dl (8.5-10.1); Creatinine Clr Calc Pharmacy 88.2 ml/min; Est GFR (Non-African American) 55.2 ml/min; Magnesium 1.9 mg/dl (1.8-2.4); Phosphorus 3.5 mg/dl (2.5-4.9); Potassium 3.9 mmol/L (3.5-5.1)
[2021-05-18] MEDS: INSULIN ASPART 100 UNITS/ML 3 ML PEN SC SCH ×4 (08:10→21:57)
[2021-05-18] MEDS: VENLAFAXINE HCL XR 150 MG CAPXR PO SCH (08:17)
[2021-05-18] MEDS: PSEUDOEPHEDRINE HCL 30 MG TAB PO SCH (08:17)
[2021-05-18] MEDS: LORATADINE 10 MG TAB PO SCH (08:18)
[2021-05-18] MEDS: METOPROLOL SUCC 50MG EXT REL TAB PO SCH (08:18)
[2021-05-18] MEDS: ATORVASTATIN 20 MG TAB PO SCH (08:18)
[2021-05-18] MEDS: buPROPion SR 100 MG TABCR PO SCH ×2 (08:19→20:46)
[2021-05-18] MEDS: CYCLOBENZAPRINE HCL 10 MG TAB PO SCH ×2 (08:19→20:46)
[2021-05-18] MEDS: amLODIPine BESYLATE 5 MG TAB PO SCH (08:19)
--- NOTE | 2021-05-18 09:36 | Hospitalist Progress Note ---
Date of Service May 18, 2021 Assessment & Plan (1) Dysfunctional uterine bleeding: (2) Anemia: Plan: Pt is a 50 y/o F who presents with ongoing vaginal bleeding and anemia. 1. Acute blood loss anemia from vaginal bleeding: ER ordered 2 units of PRBCs, which were finished. Current Hgb 7.5 follow H and H q. 6 hours. She has symptomatic anemia with dizziness. Monitor in the [facility] tele. Dizziness now improved. Today patient reports that vaginal bleeding has now worsened Will transfuse 1 more unit of pRBC (05/18) 2. Heavy vaginal bleeding: Pelvic US obtained - 1. Thickened, heterogeneous endometrium measuring 2.8 cm in thickness. This could be correlated with phase of menstrual cycle/menopausal status. Differential considerations include endometrial hyperplasia, polyp and carcinoma. Nonemergent Gynecologic consultation is recommended. 2. Exam compromised by suboptimal penetration. 3. Nonvisualization of the right ovary. 05/18 Gynecology consulted -plan for ablation later this week Per patient, vaginal bleeding has now worsened 3. Acute kidney injury on chronic kidney disease stage III: - resolved Baseline creatinine of 1 Creatinine on admission 1.6. Now down to 1.1. After getting fluids and blood transfusion. Avoid any nephrotoxic agents. Follow BMP 4. Prediabetes/diabetes: Current Hgb A1c 5.4% Hold metformin. Placed on insulin sliding scale. Follow the blood sugars. 5. HTN: Continue her amlodipine. Held the losartan d/t CLARIBEL. Continue metoprolol succinate. Will monitor the blood pressure. 6. Depression: Continue bupropion. 7. Hyperlipidemia: Continue statin. DVT prophylaxis: SCDs DISPOSITION: Plan to discharge home and follow with family doctor and salesperson burial needs. Admission and Anticipated Discharge Date Admission Date: May 17, 2021 Subjective Patient seen in follow-up of vaginal bleeding Received blood transfusion, and underwent pelvic ultrasound yesterday Current Hgb 7.5 and patient reports that her vaginal bleeding got worse again Gynecology evaluation this AM Currently in bed, in no acute distress, says her dizziness is much improved now Denies any chest pain, shortness of breath, abdominal pain, nausea vomiting Reports some dysuria that she had for some time Review of Systems Review of Systems: All systems reviewed & are unremarkable except as noted in Subjective Physical Exam Physical Exam: GENERAL: morbidly obese F, in no acute distress. HEENT: NC/AT, EOMI, Pupils equal, round and reactive to light. NECK: No JVD, no neck masses. CARDIOVASCULAR: S1 and S2 heard. Regular rate and rhythm. No murmur, no gallop. RESPIRATORY: Normal AP diameter. No accessory muscle use. No wheezing, no crackles. ABDOMEN: Soft, bowel sounds present, nontender, no distention. NEURO: Alert and oriented x3, answers questions appropriately, no facial asymmetry, speech fluent, moves extremities EXTREMITIES: No edema, no erythema. Results & Data Results & Data ([facility]) Vital Signs (Past 12 Hours) Vital Signs Temp Pulse Pulse Resp BP Pulse Ox 05/18/21 07:48 36.7 C 62 18 130/75 96 05/18/21 07:02 66 05/18/21 03:58 37.0 C 65 16 119/55 L 96 05/18/21 00:28 70 05/17/21 23:51 37 C 70 16 123/65 96 Laboratory Results 05/18/21 05/18/21 05/18/21 Range/Units 07:39 06:34 06:34 WBC 8.87 (4.8-10.8) K/uL RBC 2.59 L (4.2-5.4) M/uL Hgb 7.5 L (12.0-16.0) g/dL Hct 23.7 L (37-47) % MCV 91.5 (80-100) fL MCH 29.0 (25-34) pg MCHC 31.6 L (32-36) g/dL RDW Std Deviation 57.7 H (36.4-46.3) fL RDW Coeff of Raul 17.6 H (11.5-14.5) % Plt Count 204 (130-400) K/uL MPV 9.1 (7.4-10.4) fL Immature Gran % (Auto) % Neut % (Auto) % Lymph % (Auto) % [place] % (Auto) % Eos % (Auto) % Baso % (Auto) % Neut # (Auto) (1.4-6.5) K/uL Lymph # (Auto) (1.2-3.4) K/uL [place] # (Auto) (0.11-0.59) K/uL Eos # (Auto) (0-0.5) K/uL Baso # (Auto) (0-0.2) K/uL Immature Gran # (Auto) (0.00-0.02) K/uL Absolute Nucleated RBC (0-0) K/uL Nucleated RBC % (auto) % Polychromasia Hypochromasia Anisocytosis Sodium 140 (136-145) mmol/L Potassium 3.9 (3.5-5.1) mmol/L Chloride 109 H (98-107) mmol/L Carbon Dioxide 21 (21-32) mmol/L Anion Gap 9.0 (3-11) BUN 17 (7-18) mg/dl Creatinine 1.14 (0.6-1.2) mg/dl Est Cr Clr Drug Dosing 88.2 ml/min Est GFR ( Amer) 64.0 ml/min Est GFR (Non-Af Amer) 55.2 ml/min BUN/Creatinine Ratio 15.1 (10-20) Glucose 111 H (70-99) mg/dl POC Glucose 117 H (70-99) mg/dl Calcium 8.2 L (8.5-10.1) mg/dl Phosphorus 3.5 (2.5-4.9) mg/dl Magnesium 1.9 (1.8-2.4) mg/dl Urine Color Urine Appearance (Clear) Urine pH (4.5-7.5) Ur Specific [place] (1.000-1.030) Urine Protein (Negative) Urine Glucose (UA) (Negative) Urine Ketones (Negative) Urine Blood (Negative) Urine Nitrite (Negative) Urine Bilirubin (Negative) Urine Urobilinogen (Negative) Ur Leukocyte Esterase (Negative) Urine WBC (Auto) (0-5) /hpf Urine RBC (Auto) (0-4) /hpf U Hyaline Cast (Auto) (0-5) /lpf U Epithel Cells (Auto) (0-5) /lpf Urine Bacteria (Auto) (Negative) Crossmatch 05/18/21 05/17/21 05/17/21 Range/Units 05:34 20:25 19:29 WBC (4.8-10.8) K/uL RBC (4.2-5.4) M/uL Hgb 8.0 L (12.0-16.0) g/dL Hct 25.3 L (37-47) % MCV (80-100) fL MCH (25-34) pg MCHC (32-36) g/dL RDW Std Deviation (36.4-46.3) fL RDW Coeff of Raul (11.5-14.5) % Plt Count (130-400) K/uL MPV (7.4-10.4) fL Immature Gran % (Auto) % Neut % (Auto) % Lymph % (Auto) % [place] % (Auto) % Eos % (Auto) % Baso % (Auto) % Neut # (Auto) (1.4-6.5) K/uL Lymph # (Auto) (1.2-3.4) K/uL [place] # (Auto) (0.11-0.59) K/uL Eos # (Auto) (0-0.5) K/uL Baso # (Auto) (0-0.2) K/uL Immature Gran # (Auto) (0.00-0.02) K/uL Absolute Nucleated RBC (0-0) K/uL Nucleated RBC % (auto) % Polychromasia Hypochromasia Anisocytosis Sodium (136-145) mmol/L Potassium (3.5-5.1) mmol/L Chloride (98-107) mmol/L Carbon Dioxide (21-32) mmol/L Anion Gap (3-11) BUN (7-18) mg/dl Creatinine (0.6-1.2) mg/dl Est Cr Clr Drug Dosing ml/min Est GFR ( Amer) ml/min Est GFR (Non-Af Amer) ml/min BUN/Creatinine Ratio (10-20) Glucose (70-99) mg/dl POC Glucose 135 H (70-99) mg/dl Calcium (8.5-10.1) mg/dl Phosphorus (2.5-4.9) mg/dl Magnesium (1.8-2.4) mg/dl Urine Color [place] Urine Appearance Cloudy A (Clear) Urine pH 6.0 (4.5-7.5) Ur Specific [place] 1.014 (1.000-1.030) Urine Protein Trace H (Negative) Urine Glucose (UA) Negative (Negative) Urine Ketones Negative (Negative) Urine Blood 3+ H (Negative) Urine Nitrite Negative (Negative) Urine Bilirubin Negative (Negative) Urine Urobilinogen Negative (Negative) Ur Leukocyte Esterase 2+ H (Negative) Urine WBC (Auto) >30 H (0-5) /hpf Urine RBC (Auto) >30 H (0-4) /hpf U Hyaline Cast (Auto) 1-5 (0-5) /lpf U Epithel Cells (Auto) 20-30 H (0-5) /lpf Urine Bacteria (Auto) Negative (Negative) Crossmatch 05/17/21 05/17/21 05/17/21 Range/Units 17:43 16:11 11:43 WBC (4.8-10.8) K/uL RBC (4.2-5.4) M/uL Hgb 8.0 L (12.0-16.0) g/dL Hct 26.1 L (37-47) % MCV (80-100) fL MCH (25-34) pg MCHC (32-36) g/dL RDW Std Deviation (36.4-46.3) fL RDW Coeff of Raul (11.5-14.5) % Plt Count (130-400) K/uL MPV (7.4-10.4) fL Immature Gran % (Auto) % Neut % (Auto) % Lymph % (Auto) % [place] % (Auto) % Eos % (Auto) % Baso % (Auto) % Neut # (Auto) (1.4-6.5) K/uL Lymph # (Auto) (1.2-3.4) K/uL [place] # (Auto) (0.11-0.59) K/uL Eos # (Auto) (0-0.5) K/uL Baso # (Auto) (0-0.2) K/uL Immature Gran # (Auto) (0.00-0.02) K/uL Absolute Nucleated RBC (0-0) K/uL Nucleated RBC % (auto) % Polychromasia Hypochromasia Anisocytosis Sodium (136-145) mmol/L Potassium (3.5-5.1) mmol/L Chloride (98-107) mmol/L Carbon Dioxide (21-32) mmol/L Anion Gap (3-11) BUN (7-18) mg/dl Creatinine (0.6-1.2) mg/dl Est Cr Clr Drug Dosing ml/min Est GFR ( Amer) ml/min Est GFR (Non-Af Amer) ml/min BUN/Creatinine Ratio (10-20) Glucose (70-99) mg/dl POC Glucose 152 H 122 H (70-99) mg/dl Calcium (8.5-10.1) mg/dl Phosphorus (2.5-4.9) mg/dl Magnesium (1.8-2.4) mg/dl Urine Color Urine Appearance (Clear) Urine pH (4.5-7.5) Ur Specific [place] (1.000-1.030) Urine Protein (Negative) Urine Glucose (UA) (Negative) Urine Ketones (Negative) Urine Blood (Negative) Urine Nitrite (Negative) Urine Bilirubin (Negative) Urine Urobilinogen (Negative) Ur Leukocyte Esterase (Negative) Urine WBC (Auto) (0-5) /hpf Urine RBC (Auto) (0-4) /hpf U Hyaline Cast (Auto) (0-5) /lpf U Epithel Cells (Auto) (0-5) /lpf Urine Bacteria (Auto) (Negative) Crossmatch 05/17/21 05/17/21 05/16/21 Range/Units 11:19 11:19 22:55 WBC 15.21 H (4.8-10.8) K/uL RBC 2.74 L (4.2-5.4) M/uL Hgb 7.8 L (12.0-16.0) g/dL Hct 25.1 L (37-47) % MCV 91.6 (80-100) fL MCH 28.5 (25-34) pg MCHC 31.1 L (32-36) g/dL RDW Std Deviation 55.4 H (36.4-46.3) fL RDW Coeff of Raul 17.1 H (11.5-14.5) % Plt Count 257 (130-400) K/uL MPV 9.3 (7.4-10.4) fL Immature Gran % (Auto) 0.3 % Neut % (Auto) 70.4 % Lymph % (Auto) 18.5 % [place] % (Auto) 9.6 % Eos % (Auto) 0.9 % Baso % (Auto) 0.3 % Neut # (Auto) 10.70 H (1.4-6.5) K/uL Lymph # (Auto) 2.82 (1.2-3.4) K/uL [place] # (Auto) 1.46 H (0.11-0.59) K/uL Eos # (Auto) 0.14 (0-0.5) K/uL Baso # (Auto) 0.04 (0-0.2) K/uL Immature Gran # (Auto) 0.05 H (0.00-0.02) K/uL Absolute Nucleated RBC 0.19 H (0-0) K/uL Nucleated RBC % (auto) 1.3 % Polychromasia 1+ Hypochromasia Present Anisocytosis Present Sodium 137 (136-145) mmol/L Potassium 3.6 (3.5-5.1) mmol/L Chloride 109 H (98-107) mmol/L Carbon Dioxide 23 (21-32) mmol/L Anion Gap 5.0 (3-11) BUN 18 (7-18) mg/dl Creatinine 1.41 H (0.6-1.2) mg/dl Est Cr Clr Drug Dosing 70.7 ml/min Est GFR ( Amer) 49.5 ml/min Est GFR (Non-Af Amer) 42.7 ml/min BUN/Creatinine Ratio 13.1 (10-20) Glucose 111 H (70-99) mg/dl POC Glucose (70-99) mg/dl Calcium 8.0 L (8.5-10.1) mg/dl Phosphorus (2.5-4.9) mg/dl Magnesium 2.2 (1.8-2.4) mg/dl Urine Color Urine Appearance (Clear) Urine pH (4.5-7.5) Ur Specific [place] (1.000-1.030) Urine Protein (Negative) Urine Glucose (UA) (Negative) Urine Ketones (Negative) Urine Blood (Negative) Urine Nitrite (Negative) Urine Bilirubin (Negative) Urine Urobilinogen (Negative) Ur Leukocyte Esterase (Negative) Urine WBC (Auto) (0-5) /hpf Urine RBC (Auto) (0-4) /hpf U Hyaline Cast (Auto) (0-5) /lpf U Epithel Cells (Auto) (0-5) /lpf Urine Bacteria (Auto) (Negative) Crossmatch See Detail Medications Administered Current Inpatient Medications Amlodipine Besylate (Amlodipine Besylate 5 Mg Tab) 5 mg PO DAILY [facility] Stop: 06/16/21 08:59 Last Admin: 05/18/21 08:19 Dose: 5 mg Documented by: Atorvastatin Calcium (Atorvastatin 20 Mg Tab) 20 mg PO DAILY [facility] Stop: 06/16/21 08:59 Last Admin: 05/18/21 08:18 Dose: 20 mg Documented by: Bupropion HCl (Bupropion Sr 100 Mg Tabcr) 200 mg PO BID [facility] Stop: 06/16/21 08:59 Last Admin: 05/18/21 08:19 Dose: 200 mg Documented by: Cyclobenzaprine HCl (Cyclobenzaprine Hcl 10 Mg Tab) 10 mg PO BID [facility] Stop: 06/16/21 08:59 Last Admin: 05/18/21 08:19 Dose: Not Given Documented by: Furosemide (Furosemide 20 Mg Tab) 20 mg PO DAILY PRN PRN Reason: Fluid Retention Stop: 06/16/21 05:10 Last Admin: 05/17/21 08:37 Dose: 20 mg Documented by: Sodium Chloride (Nss 1000ml) 1,000 mls @ 80 mls/hr IV .[id number] [facility] Stop: 06/16/21 05:10 Last Admin: 05/17/21 23:20 Dose: 80 mls/hr Documented by: Sodium Chloride (Nss) 250 mls @ 15 mls/hr IV .[id number] PRN PRN Reason: For Transfusion Stop: 06/16/21 05:10 Insulin Aspart (Insulin Aspart 100 Units/Ml 3 Ml Pen) 0 units SC ACHS [facility] Stop: 06/16/21 07:29 Last Admin: 05/18/21 08:10 Dose: Not Given Documented by: Levothyroxine Sodium (Levothyroxine Sodium 75 Mcg Tablet) 75 mcg PO DAILYBB [facility] Stop: 06/16/21 06:29 Last Admin: 05/18/21 05:55 Dose: 75 mcg Documented by: Loratadine (Loratadine 10 Mg Tab) 10 mg PO DAILY [facility] Stop: 06/17/21 08:59 Last Admin: 05/18/21 08:18 Dose: Not Given Documented by: Losartan Potassium (Losartan Potassium 50 Mg Tab) 100 mg PO DAILY [facility] Stop: 06/16/21 08:59 Last Admin: 05/17/21 08:37 Dose: 100 mg Documented by: Metoprolol Succinate (Metoprolol Succ 50mg Ext Rel Tab) 100 mg PO DAILY [facility] Stop: 06/16/21 08:59 Last Admin: 05/18/21 08:18 Dose: 100 mg Documented by: Nitroglycerin (Nitroglycerin Sl 0.4 Mg/Tab Tab) 0.4 mg SL UD PRN PRN Reason: Chest Pain Stop: 06/16/21 05:10 Ondansetron HCl (Ondansetron Inj 2 Mg/Ml 2 Ml Vial) 4 mg IV Q6H PRN PRN Reason: Nausea Stop: 06/16/21 05:10 Oxycodone HCl (Oxycodone Hcl Ir 5 Mg Tab (Immediate Release)) 10 mg PO QID PRN PRN Reason: Severe Pain (Scale Score 7-10) Stop: 05/31/21 05:10 Polyethylene Glycol (Polyethylene (Miralax) 17 Gm Pack) 17 gm PO DAILY PRN PRN Reason: Constipation Stop: 06/16/21 05:10 Pseudoephedrine HCl (Pseudoephedrine Hcl 30 Mg Tab) 240 mg PO DAILY [facility] Stop: 06/17/21 08:59 Last Admin: 05/18/21 08:17 Dose: Not Given Documented by: Venlafaxine HCl (Venlafaxine Hcl Xr 150 Mg Capxr) 300 mg PO DAILY [facility] Stop: 06/16/21 15:29 Last Admin: 05/18/21 08:17 Dose: 300 mg Documented by: (1) Anemia Anemia type: unspecified type Qualified Code(s): D64.9 - Anemia, unspecified
[2021-05-18] MEDS ORDERED: SODIUM CHLORIDE 0.9% 250 ML IV PRN (10:08)
[2021-05-18] MEDS: SODIUM CHLORIDE 0.9% 1000ML 1,000 ML IV SCH (10:12)
[2021-05-18] MEDS: cefUROXime axetil 250 MG TABLET PO SCH ×2 (11:16→20:47)
--- NOTE | 2021-05-18 12:45 | Consultation Report ---
DATE OF CONSULTATION: 05/18/2021 In 275, bed 1. REASON FOR CONSULT: Vaginal bleeding. HISTORY OF PRESENT ILLNESS: The patient is a 50-year-old female, para 1-0-0-1, prior normal spontane ous vaginal delivery, has been having irregular vaginal bleeding for the past 1 to 2 years. She trie d to get into the office, but was unsuccessful due to COVID. She has been having periods that last u p to 3 weeks per month, passing clots the size of golf balls associated with some lightheadedness. O n admission, her hemoglobin was 6.6 and hematocrit of 22.1. The patient received 2 units of blood. She is now having minimal bleeding. She currently is stable. She is alert and oriented and not in a ny acute distress. PAST MEDICAL HISTORY: Significant for hypothyroidism, prediabetes, polycystic ovary syndrome, benign neoplasm of the pituitary, asthma, hypertension, morbid obesity, chronic kidney stage III disease, fi bromyalgia, osteoarthritis, depression and chronic narcotic use. PAST SURGICAL HISTORY: Significant for uterine biopsy, carpal tunnel surgery and ruptured Achilles te ndon. No prior abdominal surgery. ALLERGIES: ACETAMINOPHEN, ASPIRIN, HYDROCODONE AND RED DYE. MEDICATIONS: As listed in her history. SOCIAL HISTORY: Denies alcohol or smoking. No drug use. PHYSICAL EXAMINATION: GENERAL: Morbidly obese. She is alert, comfortable, in no acute distress. ABDOMEN: Obese, it is soft. It is nontender. There is no mass, guarding or rebound. LABORATORIES: As noted. COVID is negative. All other labs are within normal limits. The blood dewitt gar is 111 and previously was 153 on admission. IMAGING: Pelvic ultrasound, which was done on admission shows a thickened endometrium, 2.8 cm lining . No other pathology. Right ovary not visualized. ASSESSMENT: Menorrhagia and anemia. PLAN: The patient will need a followup in the office for endometrial biopsy, possible ablation and t his can be done as an outpatient. May also need one more unit of blood to see if the patient's hemog lobin comes up, but she is currently asymptomatic, so this is deferred to medicine. The patient is stable and will likely follow up with us as an outpatient in the office. Job ID: [id number]
[2021-05-18 17:02] LABS: Hematocrit (blood only) 26.9 % (37-47); Hemoglobin 8.5 g/dL (12.0-16.0)
[2021-05-19] MEDS: LEVOTHYROXINE SODIUM 75 MCG TABLET PO SCH (05:36)
[2021-05-19 07:34] LABS: Hematocrit (blood only) 27.9 % (37-47); Hemoglobin 8.9 g/dL (12.0-16.0)
[2021-05-19 07:51] LABS: Calcium 8.1 mg/dl (8.5-10.1); Est GFR (African American) 59.6 ml/min; Est GFR (Non-African American) 51.4 ml/min; Potassium 3.6 mmol/L (3.5-5.1)
--- NOTE | 2021-05-19 07:56 | Hospitalist Progress Note ---
Date of Service May 19, 2021 Assessment & Plan (1) Dysfunctional uterine bleeding: (2) Anemia: Plan: Pt is a 50 y/o F who presents with ongoing vaginal bleeding and anemia. 1. Acute blood loss anemia from dysfunctional uterine bleeding: She was symptomatic anemia with dizziness. Monitored in the med tele. Dizziness now improved. Received 2 units of PRBCs on admission On 05/18 - Hgb 7.5 and vaginal bleeding has worsened- received another unit of pRBC follow H and H q. 6 hours. 05/19 - Current Hgb 8.9 Patient is currently completely asymptomatic, feels well, dizziness has resolved and she is inquiring about going home and follow-up with gynecology this week. 2. Heavy vaginal bleeding: Pelvic US obtained - 1. Thickened, heterogeneous endometrium measuring 2.8 cm in thickness. This could be correlated with phase of menstrual cycle/menopausal status. Differential considerations include endometrial hyperplasia, polyp and carcinoma. Nonemergent Gynecologic consultation is recommended. 2. Exam compromised by suboptimal penetration. 3. Nonvisualization of the right ovary. 05/18 Gynecology consulted -plan for biopsy and likely ablation later this week as outpt 05/19 patient continues to have vaginal bleeding, however hemoglobin is stable at 8.9, and patient is otherwise completely asymptomatic. She wants to go home and follow-up with gynecology this week. 3. Acute kidney injury on chronic kidney disease stage III: - resolved Baseline creatinine of 1 Creatinine on admission 1.6. Then down to 1.1. After getting fluids and blood transfusion. Avoid any nephrotoxic agents. Follow BMP 4. Prediabetes/diabetes: Current Hgb A1c 5.4% Hold metformin. Placed on insulin sliding scale. Follow the blood sugars. 5. HTN: Continue her amlodipine. Held the losartan d/t CLARIBEL. Continue metoprolol succinate. Will monitor the blood pressure. 6. Depression: Continue bupropion. 7. Hyperlipidemia: Continue statin. DVT prophylaxis: SCDs DISPOSITION: Plan to discharge home and follow with family doctor and flow coordinator. Admission and Anticipated Discharge Date Admission Date: May 17, 2021 Subjective Patient seen in follow-up of vaginal bleeding Received blood transfusion, and underwent pelvic ultrasound Seen by gynecology yesterday - plan for further evaluation and treatment as outpatient Current Hgb 8.9 Currently pt is sitting up in bed, in no acute distress, says her dizziness has resolved, reports she continues to have bleeding but also would like to be discharged home today, and follow up w/ gynecology this week. Denies any chest pain, shortness of breath, abdominal pain, nausea vomiting Review of Systems Review of Systems: All systems reviewed & are unremarkable except as noted in Subjective Physical Exam Physical Exam: GENERAL: morbidly obese F, in no acute distress. HEENT: NC/AT, EOMI, Pupils equal, round and reactive to light. NECK: No JVD, no neck masses. CARDIOVASCULAR: S1 and S2 heard. Regular rate and rhythm. No murmur, no gallop. RESPIRATORY: Normal AP diameter. No accessory muscle use. No wheezing, no crackles. ABDOMEN: Soft, bowel sounds present, nontender, no distention. NEURO: Alert and oriented x3, answers questions appropriately, no facial asymmetry, speech fluent, moves extremities EXTREMITIES: No edema, no erythema. Results & Data Results & [facility]) Vital Signs (Past 12 Hours) Vital Signs Temp Pulse Pulse Resp BP Pulse Ox 05/19/21 07:44 36.9 C 66 18 144/68 H 93 05/19/21 07:21 69 05/19/21 03:11 36.6 C 73 18 125/76 98 05/19/21 00:03 36.8 C 69 18 128/75 99 05/18/21 22:48 36.9 C 74 18 119/68 97 05/18/21 22:19 71 05/18/21 19:53 37.1 C 70 18 127/56 L 97 Laboratory Results 05/19/21 05/19/21 05/19/21 Range/Units 07:32 07:21 07:21 Hgb 8.9 L (12.0-16.0) g/dL Hct 27.9 L (37-47) % Sodium 135 L (136-145) mmol/L Potassium 3.6 (3.5-5.1) mmol/L Chloride 108 H (98-107) mmol/L Carbon Dioxide 21 (21-32) mmol/L Anion Gap 6.0 (3-11) BUN 16 (7-18) mg/dl Creatinine 1.21 H (0.6-1.2) mg/dl Est Cr Clr Drug Dosing 83.0 ml/min Est GFR ( Amer) 59.6 ml/min Est GFR (Non-Af Amer) 51.4 ml/min BUN/Creatinine Ratio 13.0 (10-20) Glucose 118 H (70-99) mg/dl POC Glucose 128 H (70-99) mg/dl Calcium 8.1 L (8.5-10.1) mg/dl Blood Type Antibody Screen Crossmatch 05/18/21 05/18/21 05/18/21 Range/Units 20:10 16:52 16:25 Hgb 8.5 L (12.0-16.0) g/dL Hct 26.9 L (37-47) % Sodium (136-145) mmol/L Potassium (3.5-5.1) mmol/L Chloride (98-107) mmol/L Carbon Dioxide (21-32) mmol/L Anion Gap (3-11) BUN (7-18) mg/dl Creatinine (0.6-1.2) mg/dl Est Cr Clr Drug Dosing ml/min Est GFR ( Amer) ml/min Est GFR (Non-Af Amer) ml/min BUN/Creatinine Ratio (10-20) Glucose (70-99) mg/dl POC Glucose 120 H 125 H (70-99) mg/dl Calcium (8.5-10.1) mg/dl Blood Type Antibody Screen Crossmatch 05/18/21 05/16/21 Range/Units 11:32 22:55 Hgb (12.0-16.0) g/dL Hct (37-47) % Sodium (136-145) mmol/L Potassium (3.5-5.1) mmol/L Chloride (98-107) mmol/L Carbon Dioxide (21-32) mmol/L Anion Gap (3-11) BUN (7-18) mg/dl Creatinine (0.6-1.2) mg/dl Est Cr Clr Drug Dosing ml/min Est GFR ( Amer) ml/min Est GFR (Non-Af Amer) ml/min BUN/Creatinine Ratio (10-20) Glucose (70-99) mg/dl POC Glucose 164 H (70-99) mg/dl Calcium (8.5-10.1) mg/dl Blood Type O Positive Antibody Screen NEGATIVE Crossmatch See Detail Medications Administered Current Inpatient Medications Amlodipine Besylate (Amlodipine Besylate 5 Mg Tab) 5 mg PO DAILY [facility] Stop: 06/16/21 08:59 Last Admin: 05/18/21 08:19 Dose: 5 mg Documented by: Atorvastatin Calcium (Atorvastatin 20 Mg Tab) 20 mg PO DAILY [facility] Stop: 06/16/21 08:59 Last Admin: 05/18/21 08:18 Dose: 20 mg Documented by: Bupropion HCl (Bupropion Xl 300 Mg Tabcr) 300 mg PO QAM [facility] Stop: 06/18/21 08:59 Cefuroxime Axetil (Cefuroxime Axetil 250 Mg Tablet) 250 mg PO BID [facility]; Protocol Stop: 05/23/21 10:14 Last Admin: 05/18/21 20:47 Dose: 250 mg Documented by: Cyclobenzaprine HCl (Cyclobenzaprine Hcl 10 Mg Tab) 10 mg PO BID [facility] Stop: 06/16/21 08:59 Last Admin: 05/18/21 20:46 Dose: Not Given Documented by: Furosemide (Furosemide 20 Mg Tab) 20 mg PO DAILY PRN PRN Reason: Fluid Retention Stop: 06/16/21 05:10 Last Admin: 05/17/21 08:37 Dose: 20 mg Documented by: Sodium Chloride (Nss) 250 mls @ 15 mls/hr IV .[id number] PRN PRN Reason: For Transfusion Stop: 06/16/21 05:10 Insulin Aspart (Insulin Aspart 100 Units/Ml 3 Ml Pen) 0 units SC ACHS [facility] Stop: 06/16/21 07:29 Last Admin: 05/18/21 21:57 Dose: Not Given Documented by: Levothyroxine Sodium (Levothyroxine Sodium 75 Mcg Tablet) 75 mcg PO DAILYBB [facility] Stop: 06/16/21 06:29 Last Admin: 05/19/21 05:36 Dose: 75 mcg Documented by: Loratadine (Loratadine 10 Mg Tab) 10 mg PO DAILY [facility] Stop: 06/17/21 08:59 Last Admin: 05/18/21 08:18 Dose: Not Given Documented by: Losartan Potassium (Losartan Potassium 50 Mg Tab) 100 mg PO DAILY [facility] Stop: 06/16/21 08:59 Last Admin: 05/17/21 08:37 Dose: 100 mg Documented by: Metoprolol Succinate (Metoprolol Succ 50mg Ext Rel Tab) 100 mg PO DAILY [facility] Stop: 06/16/21 08:59 Last Admin: 05/18/21 08:18 Dose: 100 mg Documented by: Nitroglycerin (Nitroglycerin Sl 0.4 Mg/Tab Tab) 0.4 mg SL UD PRN PRN Reason: Chest Pain Stop: 06/16/21 05:10 Ondansetron HCl (Ondansetron Inj 2 Mg/Ml 2 Ml Vial) 4 mg IV Q6H PRN PRN Reason: Nausea Stop: 06/16/21 05:10 Oxycodone HCl (Oxycodone Hcl Ir 5 Mg Tab (Immediate Release)) 10 mg PO QID PRN PRN Reason: Severe Pain (Scale Score 7-10) Stop: 05/31/21 05:10 Last Admin: 05/18/21 20:51 Dose: 10 mg Documented by: Polyethylene Glycol (Polyethylene (Miralax) 17 Gm Pack) 17 gm PO DAILY PRN PRN Reason: Constipation Stop: 06/16/21 05:10 Pseudoephedrine HCl (Pseudoephedrine Hcl 30 Mg Tab) 240 mg PO DAILY SIVAKUMAR Stop: 06/17/21 08:59 Last Admin: 05/18/21 08:17 Dose: Not Given Documented by: Venlafaxine HCl (Venlafaxine Hcl Xr 150 Mg Capxr) 300 mg PO DAILY SIVAKUMAR Stop: 06/16/21 15:29 Last Admin: 05/18/21 08:17 Dose: 300 mg Documented by: (1) Anemia Anemia type: unspecified type Qualified Code(s): D64.9 - Anemia, unspecified
[2021-05-19] MEDS: amLODIPine BESYLATE 5 MG TAB PO SCH (08:04)
[2021-05-19] MEDS: cefUROXime axetil 250 MG TABLET PO SCH (08:04)
[2021-05-19] MEDS: VENLAFAXINE HCL XR 150 MG CAPXR PO SCH (08:05)
[2021-05-19] MEDS: LORATADINE 10 MG TAB PO SCH (08:05)
[2021-05-19] MEDS: METOPROLOL SUCC 50MG EXT REL TAB PO SCH (08:06)
[2021-05-19] MEDS: ATORVASTATIN 20 MG TAB PO SCH (08:07)
[2021-05-19] MEDS: INSULIN ASPART 100 UNITS/ML 3 ML PEN SC SCH ×2 (08:08→11:45)
[2021-05-19] MEDS ORDERED: buPROPion XL 300 MG TABCR PO SCH (09:00)
[2021-05-19] MEDS: CYCLOBENZAPRINE HCL 10 MG TAB PO SCH (09:14)
[2021-05-19] MEDS: PSEUDOEPHEDRINE HCL 30 MG TAB PO SCH (09:15)
--- NOTE | 2021-05-19 12:33 | Discharge Summary ---
Date of Service May 19, 2021 Admission HPI Per Admitting Provider A 50-year-old female with past medical history significant for hypothyroidism; prediabetes; polycystic ovary; benign neoplasm of pituitary gland; allergic rhinitis; asthma, mild intermittent, well controlled; hypertension; morbid obesity; iron deficiency anemia; chronic kidney disease stage III; excessive bleeding in premenopausal period; fibromyalgia; osteoarthritis; depression; history of chronic narcotic use. Presents with heavy vaginal bleeding. The patient says she is anemic for 2 years. She was supposed to follow with ARTISTIC DIRECTOR and RICHARD guo. Currently she is trying to get appointment with ARTISTIC DIRECTOR, but could not get because they are backed up. Since last one week, she is having heavy menstrual bleeding, heavy periods, and she was feeling dizzy when getting up and she called ARTISTIC DIRECTOR office and was advised to come to the ER. Currently resting comfortably and hemodynamically stable. Denies any shortness of breath, no chest pain. She says she gets pounding feeling in the head. No blurred visions. Has some runny nose. No sore throat, no cough, no difficulty swallowing. Appetite is okay. No chest pain. Had some chest discomfort last week, but currently no chest pain, no abdominal pain currently. Sometimes gets abdominal cramps. Normal bowel and bladder movements. Denies any blood in stool or black stools. Denies any hematuria or burning micturitions. No rash. Admission Exam Per Admitting Provider GENERAL: The patient is obese, not in acute distress. VITAL SIGNS: Temperature 36.8, pulse 76, respiratory rate 18, blood pressure 115/67, oxygen 99% on room air. HEENT: Pupils equal, round and reactive to light. Oral mucosa moist. NECK: No JVD, no neck masses. CARDIOVASCULAR: S1 and S2 heard. Regular rate and rhythm. No murmur, no gallop. RESPIRATORY SYSTEM: Normal AP diameter. No accessory muscle use. No wheezing, no crackles. ABDOMEN: Soft, bowel sounds present, nontender, no distention. CENTRAL NERVOUS SYSTEM: Cranial nerves II-XII grossly intact, nonfocal. EXTREMITIES: No edema, no erythema. Principal Diagnosis Acute blood loss anemia Dysfunctional uterine bleeding UTI Discharge Exam GENERAL: morbidly obese F, in no acute distress. HEENT: NC/AT, EOMI, Pupils equal, round and reactive to light. NECK: No JVD, no neck masses. CARDIOVASCULAR: S1 and S2 heard. Regular rate and rhythm. No murmur, no gallop. RESPIRATORY: Normal AP diameter. No accessory muscle use. No wheezing, no crackles. ABDOMEN: Soft, bowel sounds present, nontender, no distention. NEURO: Alert and oriented x3, answers questions appropriately, no facial asymmetry, speech fluent, moves extremities EXTREMITIES: No edema, no erythema. Discharge Data Allergies Allergy/AdvReac Type Severity Reaction Status Date / Time acetaminophen Allergy Unknown Delayed Verified 05/17/21 00:21 (days later) hangover effect aspirin Allergy Unknown . Verified 05/17/21 00:21 hydrocodone Allergy Unknown Delayed Verified 05/17/21 00:21 (days later) hangover effect red dye Allergy Unknown Itchiness Verified 05/17/21 00:21 and hives Consultations 05/17/21 01:24 ED Decision to Admit Stat 05/17/21 08:00 Consult Obstetrics Routine Ordered Studies 05/16/21 22:42 US pelvic complete Urgent 05/16/21 22:43 US transvaginal Urgent Hospital Course (1) Dysfunctional uterine bleeding: (2) Anemia: Pt is a 50 y/o F who presents with ongoing vaginal bleeding and anemia. 1. Acute blood loss anemia from dysfunctional uterine bleeding: She was symptomatic anemia with dizziness. Monitored in the [employer] tele. Dizziness now improved. Received 2 units of PRBCs on admission On 05/18 - Hgb 7.5 and vaginal bleeding has worsened- received another unit of pRBC follow H and H q. 6 hours. 05/19 - Current Hgb 8.9 Patient is currently completely asymptomatic, feels well, dizziness has resolved and she is inquiring about going home and follow-up with gynecology this week. 2. Heavy vaginal bleeding: Pelvic US obtained - 1. Thickened, heterogeneous endometrium measuring 2.8 cm in thickness. This could be correlated with phase of menstrual cycle/menopausal status. Differential considerations include endometrial hyperplasia, polyp and carcinoma. Nonemergent Gynecologic consultation is recommended. 2. Exam compromised by suboptimal penetration. 3. Nonvisualization of the right ovary. 05/18 Gynecology consulted -plan for biopsy and likely ablation later this week as outpt 05/19 patient continues to have vaginal bleeding, however hemoglobin is stable at 8.9, and patient is otherwise completely asymptomatic. She wants to go home and follow-up with gynecology this week. 3. Acute kidney injury on chronic kidney disease stage III: - resolved Baseline creatinine of 1 Creatinine on admission 1.6. Then down to 1.1. After getting fluids and blood transfusion. Avoid any nephrotoxic agents. Follow BMP Dysuria obtained UA poss. UTI u cltx - pending - started cefuroxime PO 4. Prediabetes/diabetes: Current Hgb A1c 5.4% Hold metformin. Placed on insulin sliding scale. Follow the blood sugars. 5. HTN: Continue her amlodipine. Held the losartan d/t CLARIBEL. Continue metoprolol succinate. Will monitor the blood pressure. 6. Depression: Continue bupropion. 7. Hyperlipidemia: Continue statin. DISPOSITION: Plan to discharge home and follow with family doctor and pressurizer. Total Time Total Time Spent Total Time Spent (In Minutes): 35 Discharge Plan Discharge Items Patient Disposition: Home - Self-Care Reason For Visit: VAGINAL BLEEDING Discharge Diagnosis: Acute blood loss anemia Dysfunctional uterine bleeding UTI Condition on Discharge: Good Activity: Per Instructions section Non-emergency contact: Information Systems Specialist Call non-emergency contact if: you have any medication questions and your symptoms worsen Follow-up/Referrals: Jonathan Wild DO [Primary Care Provider] - Diet: Carb Consistent or DM2 Addtl Attending Provider Instructions: Follow-up with your pressurizer, Dr. Westfall, this week. In the meantime finish the antibiotic course for possible UTI. If you have any more symptoms such as dizziness, shortness of breath, chest pain, contact your healthcare provider immediately or come to the emergency room for evaluation. Pending Studies at Discharge: No Stand-Alone Forms: [facility] Sm[facility] C[facility] Medications and DC Order Prescriptions: New cefuroxime axetil 250 mg Tablet 250 mg PO BID 3 Days Qty: 6 RF: 0 Continued cyclobenzaprine 10 mg tablet 10 mg PO BID RF: 0 atorvastatin 20 mg tablet 20 mg PO DAILY RF: 0 oxycodone 10 mg tablet 10 mg PO QID PRN (Reason: Severe Pain (Scale Score 7-10)) RF: 0 metoprolol succinate 100 mg tablet extended release 24 hr 100 mg PO DAILY RF: 0 levothyroxine 75 mcg tablet 75 mcg PO DAILYBB RF: 0 losartan 100 mg tablet 100 mg PO DAILY RF: 0 furosemide 20 mg tablet 20 mg PO DAILY PRN (Reason: Fluid Retention) RF: 0 bupropion HCl 200 mg tablet sustained-release 12 hr 200 mg PO BID RF: 0 metformin 500 mg tablet 500 mg PO BID RF: 0 amlodipine 5 mg tablet 5 mg PO DAILY RF: 0 Discharge Orders: Discharge Order (Routine); Ordered 05/19/21 Ordered By: Sang Wilkerson Admission Data Admit Date/Time: 05/17/21 02:21 Attending Provider: Sang Wilkerson Admit Provider: Jay Ugalde Primary Care Provider: Jonathan Wild Other Providers: Jay Ugalde ; Steve Snow Christina ; Sonal Oden ; Pierre Briones ; Ryan Curtis ; Fernando Hill ; Manan encinas,Kaden Murillo ; Radha White ; Michelle Garcia V. ; Melinda Castillo ; Ban Mcleod ; Korina Dyer ; Ella Palma
== END 2021-05-19 14:31 | disposition home or self-care (01) | DRG 760 ==
LOC: ED 20:50 → 2N 05-17 02:21

== ENCOUNTER 2022-01-21 17:44 | Inpatient (IN) ==
[2022-01-21] MEDS ORDERED: BENZONATATE 100 MG CAPSULE PO ONE (19:41)
[2022-01-21 20:00] LABS: Alanine Aminotransferase 29 U/L (7-52); Albumin Globulin Ratio 1.1 (0.9-2); Albumin Level 3.8 gm/dl (3.4-5.0); Alkaline Phosphatase 112 U/L (34-104); Anion Gap 12 (3-11); Aspartate Aminotransferase 24 U/L (13-39); Bilirubin,Total 0.4 mg/dl (0.2-1.0); Blood Urea Nitrogen 24 mg/dl (6-23); Calcium 9.7 mg/dl (8.5-10.1); Carbon Dioxide 21 mmol/L (21-32); Chloride 101 mmol/L (98-107); Est GFR (African American) 52.8 ml/min; Est GFR (Non-African American) 45.5 ml/min; Globulin 3.4 gm/dl (2.5-4.0); Glucose 129 mg/dl (70-99(Fasting)); Potassium 4.5 mmol/L (3.5-5.1); Sodium 134 mmol/L (136-145); Total Protein 7.2 gm/dl (6.0-8.3); Troponin I High Sensitivity 5.8 pg/ml (0-14)
--- NOTE | 2022-01-21 20:02 | XRay Report ---
SINGLE VIEW CHEST CLINICAL HISTORY: Fatigue FINDINGS: An AP, portable, upright chest radiograph is compared to study dated 12/06/2012. The cardiom ediastinal silhouette is unremarkable. The lungs and pleural spaces are clear. No pneumothorax is see n. The bony thorax is grossly intact. IMPRESSION: No active disease in the chest. ACT 112: Negative or not required by law. Electronically signed by: Rob Landaverde M.D. 01/21/2022 8:01 PM
[2022-01-21 20:15] LABS: Hematocrit (blood only) 23.3 % (37-47); Hemoglobin 6.3 g/dL (12.0-16.0); Mean Corpuscular Hemoglobin 18.9 pg (25-34); Mean Platelet Volume 10.1 fL (7.4-10.4); Nucleated RBC # (auto) 0.19 K/uL (0-0); Nucleated RBC % (auto) 0.9 %; Platelet Count 366 K/uL (130-400); RDW Coefficient of Variation 19.8 % (11.5-14.5); RDW Standard Deviation 51.3 fL (36.4-46.3); Red Blood Count 3.33 M/uL (4.2-5.4); White Blood Count 20.75 K/uL (4.8-10.8)
[2022-01-21 20:24] LABS: Anisocytosis Present; Basophils # (auto) 0.06 K/uL (0-0.2); Basophils % (auto) 0.3 %; Eosinophils # (auto) 0.13 K/uL (0-0.5); Eosinophils % (auto) 0.6 %; Hypochromasia Present; Immature Granulocytes # (auto) 0.12 K/uL (0.00-0.02); Immature Granulocytes % (auto) 0.6 %; Lymphocytes # (auto) 2.09 K/uL (1.2-3.4); Lymphocytes % (auto) 10.1 %; Microcytosis Present; Monocytes # (auto) 1.24 K/uL (0.11-0.59); Neutrophils # (auto) 17.11 K/uL (1.4-6.5); Neutrophils % (auto) 82.4 %; Ovalocytes 1+; Polychromasia 1+
[2022-01-21] MEDS ORDERED: SODIUM CHLORIDE 0.9% 250 ML IV PRN (20:33)
--- NOTE | 2022-01-21 22:31 | Emergency Department Note ---
History of Present Illness General Chief complaint: Dizziness Stated complaint: ANEMIMA, DIZZINESS, LIGHTHEADED Time Seen by Provider: 01/21/22 19:23 History of Present Illness Provider complaint: Dizziness dyspnea on exertion Onset (ago): month(s) 1 Maximum Pain Intensity: 1 Current Pain Intensity: 0 Associated symptoms: + shortness of breath and + weakness; no chest pain, no cough, no fever/chills, no headaches or no nausea/vomiting 51-year-old female presents emergency department with weakness and dyspnea on exertion. Patient states her symptoms have been going on for the last 6 weeks. She reports she went to see her PCP who said that she needed blood work and referred her to the emergency department for the blood work. Patient reports that she has pain. No headaches no fevers. Patient reports she felt a similar weight last year when her hemoglobin level was low and required a blood transfusion and admission. Patient denies any melena or hematochezia. No hematuria dysuria. No vomiting. Patient does report she is on her menstrual cycle and that she is having menstrual cycles but it is no heavier currently than her usual menstrual cycle. Home Medications Medication Instructions Recorded Confirmed Type amlodipine 5 mg tablet 5 mg PO DAILY 05/17/21 01/21/22 History bupropion HCl 200 mg tablet,12 hr 200 mg PO BID 05/17/21 01/21/22 History sustained-release cyclobenzaprine 10 mg tablet 10 mg PO BID 05/17/21 01/21/22 History furosemide 20 mg tablet 20 mg PO DAILY PRN 05/17/21 01/21/22 History levothyroxine 75 mcg tablet 75 mcg PO DAILYBB 05/17/21 01/21/22 History losartan 100 mg tablet 100 mg PO DAILY 05/17/21 01/21/22 History metoprolol succinate 100 mg 100 mg PO DAILY 05/17/21 01/21/22 History tablet,extended release 24 hr oxycodone 10 mg tablet 10 mg PO QID PRN 05/17/21 01/21/22 History loratadine-pseudoephedrine ER 10 1 tab PO DAILY 11/06/21 01/21/22 History mg-240 mg tablet,extended [id number] (Claritin-D 24 Hour) ascorbic acid (vitamin C) 1,000 mg 1 g PO DAILY 01/21/22 01/21/22 History tablet (Vitamin C) Allergies Allergy/AdvReac Type Severity Reaction Status Date / Time aspirin Allergy Severe Anaphylaxis Verified 01/21/22 20:03 acetaminophen Allergy Intermediate Delayed Verified 01/21/22 20:03 (days later) hangover effect hydrocodone Allergy Intermediate Delayed Verified 01/21/22 20:03 (days later) hangover effect oxaprozin [From Daypro] Allergy Intermediate delayed Verified 01/21/22 20:03 (days later) hangover red dye Allergy Intermediate Itchiness Verified 01/21/22 20:03 and hives Past Med/Surg History Medical History Anemia Arthritis Asthma Depression Environmental allergies High blood pressure Surgical History H/O carpal tunnel repair History of orthopedic surgery Social History Smoking Status: Never smoker Hx Alcohol Use: No Hx Substance Use: No Preferred Language: Eritrean Communication Ability: Effective Beliefs That Will Affect Care: None Current Living Situation: Alone How many Children do You have: 0 Feels Safe at Home: Yes Assistive Devices: None Review of Systems A total of 10 systems reviewed and were otherwise negative Physical Exam Vital Signs Vital Signs - 24 hr 01/21/22 17:54 01/21/22 19:29 01/21/22 20:01 Temperature 36.8 C Temperature Source Temporal Artery Scan Pulse Rate - Lying 73 Pulse Rate - Sitting 72 Pulse Rate - Standing 74 Pulse Rate 72 68 Pulse Rhythm Regular Pulse Strength Normal Respiratory Rate 20 14 Respiratory Pattern Regular Blood Pressure - Lying 134/56 L Blood Pressure - Sitting 124/54 L Blood Pressure- Standing 120/50 L Blood Pressure 123/54 L 136/61 Blood Pressure Mean 77 86 Blood Pressure Position Sitting Pulse Oximetry 98 94 Oxygen Delivery Method Room Air Sepsis Recent Fever Within 48 Hours No Sepsis New/Unexplained Change in Mental Status No Sepsis Action Taken by Nursing No Action Required 01/21/22 21:00 01/21/22 21:55 01/21/22 22:14 Temperature 37.2 C 36.7 C Temperature Source Oral Oral Pulse Rate - Lying Pulse Rate - Sitting Pulse Rate - Standing Pulse Rate 67 65 66 Pulse Rhythm Regular Pulse Strength Normal Respiratory Rate 14 18 21 Respiratory Pattern Blood Pressure - Lying Blood Pressure - Sitting Blood Pressure- Standing Blood Pressure 136/60 120/46 L 131/62 Blood Pressure Mean 85 70 85 Blood Pressure Position Sitting Lying Pulse Oximetry 98 96 95 Oxygen Delivery Method Sepsis Recent Fever Within 48 Hours Sepsis New/Unexplained Change in Mental Status Sepsis Action Taken by Nursing Physical Exam GENERAL: She is oriented to person, place, and time. She appears well-developed and well-nourished. She does not appear distressed. HENT: Exam performed. -Head: Normocephalic and atraumatic. -Right Ear: External ear normal. No mastoid tenderness. -Left Ear: External ear normal. No mastoid tenderness. -Mouth/Throat: The oropharynx is clear and moist. No trismus in the jaw. No dental abscesses or uvula swelling. No oropharyngeal exudate or tonsillar abscesses. EYES: Conjunctivae and EOM are normal. Pupils are equal, round, and reactive to light. Right eye exhibits no discharge. Left eye exhibits no discharge. No scleral icterus. NECK: Normal range of motion. Neck supple. No JVD present. No spinous process tenderness present. No carotid bruit present. No rigidity. No tracheal deviation and normal range of motion present. No Brudzinski's sign and no Kernig's sign noted. CV: Normal rate, regular rhythm, normal heart sounds and intact distal pulses. There is no peripheral edema. Palpable radial pulses bue. PULM/CHEST: Effort normal and breath sounds normal. No respiratory distress. No stridor. She has no wheezes. She has no rales. -Chest Wall: She exhibits no tenderness. ABD: The abdomen is soft. Bowel sounds are normal. She has no distension. No mass is present. There is no tenderness. There is no rebound, no guarding, no Rothman's sign and no tenderness at McBurney's point. Rovsig negative MUSC/SKEL: Normal range of motion. There is no peripheral edema, tenderness or deformity. LYMPH: No cervical adenopathy. NEURO: She is alert and oriented to person, place, and time. She has normal strength. No cranial nerve deficit or sensory deficit. Coordination and gait normal. GCS eye subscore is 4. GCS verbal subscore is 5. GCS motor subscore is 6. Cerebellar tests wnl. SKIN: Skin is warm and dry. She is not diaphoretic. PSYCH: She has a normal mood and affect. Behavior is normal. Judgment and thought content normal. Course Course 1922: The patient was evaluated in room A10. A complete history and physical exam was performed Cardiac monitoring: An order was placed for continuous cardiac monitoring. The monitor shows a rate of 70 with sinus rhythm 2040: Vital signs stable. Patient's hemoglobin 6.3. White blood cell count 20.75.EMR reviewed and patient during previous visit for low hemoglobin had a leukocytosis also in May 2021. EKG does show ischemic changes thought to be due to demand ischemia. Troponin negative. Patient is refusing pelvic and rectal exam. Patient will be transfused 1 unit packed red blood cells and admitted to the [facility] team. Dr. Ugalde will be notified. Administered Medications Discontinued Medications Benzonatate (Benzonatate 100 Mg Capsule) 100 mg PO NOW ONE Stop: 01/21/22 19:42 Last Admin: 01/21/22 19:51 Dose: 100 mg Documented by: [id number] Critical Care Time Critical Care Time: Yes Total Critical Care Time: 53 I have personally spent greater than 53 minutes of critical care time in the direct management of this patient. This includes bedside care, interpretation of diagnostic studies, and testing, discussion with consultants, patient, and family members, and other required patient management activities. This 53 minutes is in excess of all separately billable procedures. Medical Decision Making Laboratory Data Result diagrams: 01/21/22 18:50 01/21/22 18:50 Lab Results 01/21/22 01/21/22 01/21/22 Range/Units 18:50 18:50 18:50 WBC 20.75 H (4.8-10.8) K/uL RBC 3.33 L (4.2-5.4) M/uL Hgb 6.3 L* (12.0-16.0) g/dL Hct 23.3 L (37-47) % MCV 70.0 L (80-100) fL MCH 18.9 L (25-34) pg MCHC 27.0 L (32-36) g/dL RDW Std Deviation 51.3 H (36.4-46.3) fL RDW Coeff of Raul 19.8 H (11.5-14.5) % Plt Count 366 (130-400) K/uL MPV 10.1 (7.4-10.4) fL Immature Gran % (Auto) 0.6 % Neut % (Auto) 82.4 % Lymph % (Auto) 10.1 % Kingfisher % (Auto) 6.0 % Eos % (Auto) 0.6 % Baso % (Auto) 0.3 % Neut # (Auto) 17.11 H (1.4-6.5) K/uL Lymph # (Auto) 2.09 (1.2-3.4) K/uL Kingfisher # (Auto) 1.24 H (0.11-0.59) K/uL Eos # (Auto) 0.13 (0-0.5) K/uL Baso # (Auto) 0.06 (0-0.2) K/uL Immature Gran # (Auto) 0.12 H (0.00-0.02) K/uL Absolute Nucleated RBC 0.19 H (0-0) K/uL Nucleated RBC % (auto) 0.9 % Polychromasia 1+ Hypochromasia Present Anisocytosis Present Microcytosis Present Ovalocytes 1+ Sodium 134 L (136-145) mmol/L Potassium 4.5 (3.5-5.1) mmol/L Chloride 101 (98-107) mmol/L Carbon Dioxide 21 (21-32) mmol/L Anion Gap 12 H (3-11) BUN 24 H (6-23) mg/dl Creatinine 1.33 H (0.6-1.2) mg/dl Est Cr Clr Drug Dosing Not Reportable Est GFR ( Amer) 52.8 ml/min Est GFR (Non-Af Amer) 45.5 ml/min BUN/Creatinine Ratio 18.0 (10-20) Glucose 129 H (70-99(Fasting)) mg/dl Calcium 9.7 (8.5-10.1) mg/dl Total Bilirubin 0.4 (0.2-1.0) mg/dl AST 24 (13-39) U/L ALT 29 (7-52) U/L Alkaline Phosphatase 112 H (34-104) U/L Troponin I High Sens 5.8 (0-14) pg/ml Total Protein 7.2 (6.0-8.3) gm/dl Albumin 3.8 (3.4-5.0) gm/dl Globulin 3.4 (2.5-4.0) gm/dl Albumin/Globulin Ratio 1.1 (0.9-2) TSH 5.366 H (0.300-4.500) uIu/ml SARS-CoV-2, RNA, NAAT (NEGATIVE) Blood Type Antibody Screen Crossmatch 01/21/22 01/21/22 Range/Units 19:53 20:33 WBC (4.8-10.8) K/uL RBC (4.2-5.4) M/uL Hgb (12.0-16.0) g/dL Hct (37-47) % MCV (80-100) fL MCH (25-34) pg MCHC (32-36) g/dL RDW Std Deviation (36.4-46.3) fL RDW Coeff of Raul (11.5-14.5) % Plt Count (130-400) K/uL MPV (7.4-10.4) fL Immature Gran % (Auto) % Neut % (Auto) % Lymph % (Auto) % Kingfisher % (Auto) % Eos % (Auto) % Baso % (Auto) % Neut # (Auto) (1.4-6.5) K/uL Lymph # (Auto) (1.2-3.4) K/uL Kingfisher # (Auto) (0.11-0.59) K/uL Eos # (Auto) (0-0.5) K/uL Baso # (Auto) (0-0.2) K/uL Immature Gran # (Auto) (0.00-0.02) K/uL Absolute Nucleated RBC (0-0) K/uL Nucleated RBC % (auto) % Polychromasia Hypochromasia Anisocytosis Microcytosis Ovalocytes Sodium (136-145) mmol/L Potassium (3.5-5.1) mmol/L Chloride (98-107) mmol/L Carbon Dioxide (21-32) mmol/L Anion Gap (3-11) BUN (6-23) mg/dl Creatinine (0.6-1.2) mg/dl Est Cr Clr Drug Dosing Est GFR ( Amer) ml/min Est GFR (Non-Af Amer) ml/min BUN/Creatinine Ratio (10-20) Glucose (70-99(Fasting)) mg/dl Calcium (8.5-10.1) mg/dl Total Bilirubin (0.2-1.0) mg/dl AST (13-39) U/L ALT (7-52) U/L Alkaline Phosphatase (34-104) U/L Troponin I High Sens (0-14) pg/ml Total Protein (6.0-8.3) gm/dl Albumin (3.4-5.0) gm/dl Globulin (2.5-4.0) gm/dl Albumin/Globulin Ratio (0.9-2) TSH (0.300-4.500) uIu/ml SARS-CoV-2, RNA, NAAT NEGATIVE (NEGATIVE) Blood Type O Positive Antibody Screen NEGATIVE Crossmatch See Detail Imaging Data Radiologist's Impression: Chest X-Ray 01/21/22 19:41 SINGLE VIEW CHEST CLINICAL HISTORY: Fatigue FINDINGS: An AP, portable, upright chest radiograph is compared to study dated 12/06/2012. The cardiomediastinal silhouette is unremarkable. The lungs and pleural spaces are clear. No pneumothorax is seen. The bony thorax is grossly intact. IMPRESSION: No active disease in the chest. ACT 112: Negative or not required by law. Electronically signed by: Rob Landaverde M.D. 01/21/2022 8:01 PM ECG Data Indication: + weakness Rate (beats per minute): 80 Rhythm: + normal sinus ECG Intervals/blocks: + Normal QRS, + Normal AL and + Normal QT-c ECG ST segments: + ST depression (Leads II, III and aVF) and + T-wave inversions (Lead I and aVL); no ST elevation MDM Narrative Vital signs stable. Patient's hemoglobin 6.3. White blood cell count 20.75.EMR reviewed and patient during previous visit for low hemoglobin had a leukocytosis also in May 2021. EKG does show ischemic changes thought to be due to demand ischemia. Patient is refusing pelvic and rectal exam. Patient will be transfused 1 unit packed red blood cells and admitted to the [facility] team. Dr. Ugalde will be notified. Impression & Plan Anemia Discharge Plan Visit Data Chief Complaint: Dizziness Stated Complaint: ANEMIMA, DIZZINESS, LIGHTHEADED Discharge Problem: Anemia Patient Disposition: Admitted As Inpatient Forms Stand Alone Forms: [employer] Prescriptions Prescriptions: No Action cyclobenzaprine 10 mg tablet 10 mg PO BID RF: 0 oxycodone 10 mg tablet 10 mg PO QID PRN (Reason: Severe Pain (Scale Score 7-10)) RF: 0 metoprolol succinate 100 mg tablet extended release 24 hr 100 mg PO DAILY RF: 0 levothyroxine 75 mcg tablet 75 mcg PO DAILYBB RF: 0 losartan 100 mg tablet 100 mg PO DAILY RF: 0 furosemide 20 mg tablet 20 mg PO DAILY PRN (Reason: Fluid Retention) RF: 0 bupropion HCl 200 mg tablet sustained-release 12 hr 200 mg PO BID RF: 0 amlodipine 5 mg tablet 5 mg PO DAILY RF: 0 loratadine-pseudoephedrine [Claritin-D 24 Hour] 10-240 mg Tablet Extended Release 24 Hr 1 tab PO DAILY RF: 0 ascorbic acid (vitamin C) [Vitamin C] 1,000 mg Tablet 1 g PO DAILY RF: 0 Referrals Referrals: Jo Ann Valle DO [Primary Care Provider] -
[2022-01-21] MEDS ORDERED: oxyCODONE HCL IR 5 MG TAB (IMMEDIATE RELEASE) PO PRN (23:22)
[2022-01-21] MEDS ORDERED: SODIUM CHLORIDE 0.9% 1000ML 1,000 ML IV SCH (23:22)
[2022-01-21] MEDS ORDERED: FUROSEMIDE 20 MG TAB PO PRN (23:22)
[2022-01-21] MEDS ORDERED: ONDANSETRON INJ 2 MG/ML 2 ML VIAL IV PRN (23:22)
[2022-01-21] MEDS ORDERED: ZOLPIDEM TARTRATE 5 MG TAB PO ONE (23:22)
[2022-01-21] MEDS ORDERED: NITROGLYCERIN SL 0.4 MG/TAB TAB SL PRN (23:22)
--- NOTE | 2022-01-22 01:20 | History and Physical Report ---
DATE OF ADMISSION: 01/21/2022. CHIEF COMPLAINT: Dyspnea on exertion, dizziness, anemia. HISTORY OF PRESENT ILLNESS: This 51-year-old female with past medical history significant for anterior pituitary disorder, polycystic ovary, benign neoplasm of pituitary gland, acquired hypothyroidism, prediabetes, allergic rhinitis, asthma, mild intermittent; hypertension, morbid obesity, iron deficiency anemia, chronic kidney disease stage III, excessive bleeding in premenopausal period, arthritis of knee, fibromyalgia, osteoarthritis, major depression, history of chronic narcotic use, presents with dyspnea on exertion. The patient states walking few steps making her short of breath and also dizzy. That is the reason, she came in. Also having some allergies going on with some runny nose, sore throat, some dry cough, and also some earaches and impacted wax in her ears, supposed to see ENT soon. The patient has ongoing heavy menstrual bleeding. The patient was here last year in May 2021, received PRBC, and supposed to follow with [facility] for ablation, but she did not follow up because she felt good, but after in July, she states she passed large amount of clots and she was feeling sick but she did not see [facility] [employer]S REPA[facility]. In the ER also she refused pelvic exam and stool Hemoccult exam. The patient denies any blood in stools or black stools. No hematuria. Denies any headache. No blurred visions. Appetite is okay. No difficulty swallowing. No chest pain. Nausea from iron pills. No vomiting, no abdominal pain, hemodynamically stable. ALLERGIES: TO ASPIRIN, ACETAMINOPHEN, HYDROCODONE, OXAPROZIN, RED DYE, NSAIDS. PAST MEDICAL HISTORY: As mentioned above. PAST SURGICAL HISTORY: Anesthesia for MRI scan, biopsy of uterus lining, carpal tunnel surgery, repair of ruptured Achilles tendon. MEDICATIONS: The patient seems to be on amlodipine 5 mg p.o. daily, vitamin C 1 gram p.o. daily, bupropion 200 mg p.o. b.i.d., cyclobenzaprine 10 mg p.o. b.i.d. p.r.n., Lasix 20 mg p.o. daily p.r.n., levothyroxine 75 mcg p.o. daily, Claritin-D 24-Hour one tablet p.o. daily, losartan 100 mg p.o. daily, metoprolol succinate 100 mg p.o. daily, oxycodone 10 mg p.o. q.i.d. p.r.n. FAMILY HISTORY: Significant for mother has arthritis, breast cancer. Father has heart transplant, kidney disease, history of psoriatic arthritis. SOCIAL HISTORY: . No smoking. Alcohol, rarely. No drug use. REVIEW OF SYSTEMS: As per HPI. Rest of the review of systems is negative. PHYSICAL EXAMINATION: GENERAL: The patient is obese, not in acute distress. VITAL SIGNS: Temperature 37.2, pulse 64, respiratory rate 18, blood pressure 120/46, oxygen 96% on room air. HEENT: Pupils equal, round and reactive to light. Oral mucosa moist. NECK: No JVD. No neck masses. CARDIOVASCULAR: S1 and S2 heard. Regular rate and rhythm. No murmur, no gallop. RESPIRATORY SYSTEM: Normal AP diameter. No accessory muscle use. No wheezing, no crackles. ABDOMEN: Soft, bowel sounds present, nontender, no distention. CENTRAL NERVOUS SYSTEM: Cranial nerves II-XII grossly intact, nonfocal. EXTREMITIES: No edema. LABORATORY DATA: WBC 20.7, hemoglobin 6.3, hematocrit 23.3, platelets 366. Sodium 134, potassium 4.5, chloride 101, bicarbonate 21, BUN 24, creatinine 1.3, serum glucose 129, calcium 9.7, total bilirubin 0.4, AST 24, ALT 29, alkaline phosphatase 112. Troponin I high sensitivity 5.8. TSH 5.3. IMAGING DATA: Chest x-ray, no active disease in the chest. EKG: Normal sinus rhythm at a rate of 80, nonspecific ST changes are seen. No previous EKG is available. ASSESSMENT AND PLAN: This 51-year-old female presents with dyspnea on exertion. 1. Dyspnea on exertion. This is most likely due to symptomatic anemia. We will also check echocardiogram. Monitor in the tele floor. Her hemoglobin is 6.3. Ordered 1 unit of PRBC in the ER, which will be continued. Follow H and H q. 6 hours. 2. Symptomatic anemia, history of heavy menstrual bleeding in the past. Failed outpatient followup. Refusing pelvic exam and rectal exam in the ER. Okay for stool exam. We will do Hemoccult for stool. IV Protonix 40 b.i.d., getting 1 unit of PRBC. Follow H and H q. 6 hours. Consult [facility] [facility] in the a.m. If Hemoccult comes positive, we will consult GI. 3. Chronic kidney disease, stage III. We will follow the lab. 4. History of prediabetes. We will follow HbA1c levels. Currently n.p.o. 5. Hypertension. On amlodipine, losartan and metoprolol. We will monitor the blood pressure. 6. Depression, bupropion. 7. Hyperlipidemia. 8. Deep venous thrombosis prophylaxis: Sequential compression devices for now. DISPOSITION: Closely monitor in the tele floor. Level 1 full code. Expect to discharge home and follow with family doctor. Job ID: [id number] [facility]
[2022-01-22] MEDS: PANTOprazole 40 MG in SYRINGE 0 ML IV SCH ×3 (01:33→20:57)
[2022-01-22] MEDS ORDERED: Nursing to Pharmacy Communication SCH (01:45)
[2022-01-22] MEDS: ZOLPIDEM TARTRATE 5 MG TAB PO ONE ×2 (01:56→01:58)
[2022-01-22] MEDS: LEVOTHYROXINE SODIUM 75 MCG TABLET PO SCH (05:48)
[2022-01-22 06:11] LABS: Anisocytosis Present; Basophils # (auto) 0.05 K/uL (0-0.2); Basophils % (auto) 0.3 %; Eosinophils # (auto) 0.28 K/uL (0-0.5); Eosinophils % (auto) 1.8 %; Hematocrit (blood only) 23.3 % (37-47); Hypochromasia Present; Immature Granulocytes # (auto) 0.05 K/uL (0.00-0.02); Immature Granulocytes % (auto) 0.3 %; Lymphocytes # (auto) 3.01 K/uL (1.2-3.4); Lymphocytes % (auto) 19.2 %; Mean Corpuscular Hemoglobin 20.6 pg (25-34); Mean Corpuscular Hgb Conc 28.3 g/dL (32-36); Mean Corpuscular Volume 72.6 fL (80-100); Mean Platelet Volume 9.3 fL (7.4-10.4); Microcytosis Present; Monocytes # (auto) 1.09 K/uL (0.11-0.59); Neutrophils # (auto) 11.16 K/uL (1.4-6.5); Neutrophils % (auto) 71.4 %; Nucleated RBC # (auto) 0.13 K/uL (0-0); Nucleated RBC % (auto) 0.8 %; Platelet Count 258 K/uL (130-400); Polychromasia 1+; RDW Standard Deviation 58.1 fL (36.4-46.3); Red Blood Count 3.21 M/uL (4.2-5.4); Target Cells 1+; Tear Drop Cells 1+; White Blood Count 15.64 K/uL (4.8-10.8)
[2022-01-22 06:14] LABS: Hemoglobin 6.6 g/dL (12.0-16.0)
[2022-01-22] MEDS ORDERED: SODIUM CHLORIDE 0.9% 250 ML IV PRN (06:27)
[2022-01-22] MEDS ORDERED: FUROSEMIDE INJ 20 MG/2 ML VIAL IV ONE (06:27)
[2022-01-22 06:31] LABS: Creatinine Clr Calc Pharmacy 77.3 ml/min; Est GFR (African American) 56.3 ml/min; Est GFR (Non-African American) 48.6 ml/min
[2022-01-22] MEDS: CYCLOBENZAPRINE HCL 10 MG TAB PO SCH ×2 (07:25→21:00)
[2022-01-22] MEDS ORDERED: buPROPion SR 100 MG TABCR PO SCH (09:00)
[2022-01-22] MEDS ORDERED: NON-FORMULARY MEDICATION (Loratadine-Pseudoephedrine [Claritin-D 24 Hour] 10-240 mg Tablet PO SCH (09:00)
[2022-01-22 09:07] LABS: Estimated Average Glucose 123 mg/dl; Hemoglobin A1C 5.9 % (4.5-5.6)
[2022-01-22] MEDS: BENZONATATE 100 MG CAPSULE PO SCH ×3 (09:10→20:57)
--- NOTE | 2022-01-22 09:39 | OB/GYN Consultation ---
Date of Consultation January 22, 2022 Assessment & Plan (1) Anemia: (2) Menorrhagia with regular cycle: Follow up in office for evaluation and endometrial biopsy History of Present Illness Reason for Consultation: vaginal bleeding Requesting Physician: Dr. Torre Attending Physician: Ronal Cope MD History of Present Illness 50 F [id number] with recent onset of dizziness accompanied by vaginal bleeding which started last week Wed. or without clots or pain. Patient had bleeding and clots last year around and was schedule at [facility] for an endometrial ablation which she did not have. Her anemia has been chronic and she has been well compensated. She is not currently short of breath or dizzy when getting up. No chest pain or any diificulty breathing. She currently is refusing a pelvic exam or ultrasound of pelvis. Allergies Allergy/AdvReac Type Severity Reaction Status Date / Time aspirin Allergy Severe Anaphylaxis Verified 01/21/22 20:03 acetaminophen Allergy Intermediate Delayed Verified 01/21/22 20:03 (days later) hangover effect hydrocodone Allergy Intermediate Delayed Verified 01/21/22 20:03 (days later) hangover effect oxaprozin [From Daypro] Allergy Intermediate delayed Verified 01/21/22 20:03 (days later) hangover red dye Allergy Intermediate Itchiness Verified 01/21/22 20:03 and hives Home Medications Medication Instructions Recorded Confirmed Type amlodipine 5 mg tablet 5 mg PO DAILY 05/17/21 01/21/22 History bupropion HCl 200 mg tablet,12 hr 200 mg PO BID 05/17/21 01/21/22 History sustained-release cyclobenzaprine 10 mg tablet 10 mg PO BID 05/17/21 01/21/22 History furosemide 20 mg tablet 20 mg PO DAILY PRN 05/17/21 01/21/22 History levothyroxine 75 mcg tablet 75 mcg PO DAILYBB 05/17/21 01/21/22 History losartan 100 mg tablet 100 mg PO DAILY 05/17/21 01/21/22 History metoprolol succinate 100 mg 100 mg PO DAILY 05/17/21 01/21/22 History tablet,extended release 24 hr oxycodone 10 mg tablet 10 mg PO QID PRN 05/17/21 01/21/22 History loratadine-pseudoephedrine ER 10 1 tab PO DAILY 11/06/21 01/21/22 History mg-240 mg tablet,extended [id number] (Claritin-D 24 Hour) ascorbic acid (vitamin C) 1,000 mg 1 g PO DAILY 01/21/22 01/21/22 History tablet (Vitamin C) Patient History Medical History Anemia Arthritis Asthma Depression Environmental allergies High blood pressure Surgical History H/O carpal tunnel repair History of orthopedic surgery Social History Smoking Status: Never smoker Second Hand Exposure: Yes; Do You Dip or Chew Tobacco: No; Tobacco Cessation Education Requested by Patient: No Hx Alcohol Use: No Hx Substance Use: No Preferred Language: Armenian Communication Ability: Effective Physicist Nuclear Required: No Beliefs That Will Affect Care: None Current Living Situation: Alone How many Children do You have: 0 Other Information That Helps Us Care for You: No Feels Safe at Home: Yes Safety Concerns: Feels Safe At This Time Assistive Devices: Cane and Glasses Review of Systems Review of Systems: All systems reviewed & are unremarkable except as noted in HPI & below Physical Exam Constitutional: WD/WN, vitals as above Gastrointestinal (Abdomen): Inspection/Auscultation: abdomen normal to inspection no abdominal pain on exam. She is difficult to examine due to morbid obesity. Skin: no rashes, warm and dry Neurologic: patellar DTR's 2+ bilat, sensation intact Psychiatric: A+Ox3, euthymic affect Genitourinary: refusing pelvic exam Results & Data ([facility]) Vital Signs (Past 12 Hours) Vital Signs Temp Pulse Pulse Pulse Resp BP BP 01/22/22 09:05 37.5 C 76 18 138/79 01/22/22 08:50 37.2 C 66 16 159/81 H 01/22/22 08:29 36.8 C 65 19 114/73 01/22/22 07:14 76 01/22/22 07:06 36.5 C 95 H 14 111/69 01/22/22 00:56 37 C 69 18 120/69 01/22/22 00:52 37 C 69 18 120/69 01/22/22 00:24 73 01/21/22 23:59 37.2 C 70 20 118/66 01/21/22 23:29 37.1 C 68 20 135/70 01/21/22 23:25 36.8 C 69 18 135/70 01/21/22 22:29 37.3 C 71 18 135/60 01/21/22 22:14 36.7 C 66 21 131/62 01/21/22 21:55 37.2 C 65 18 120/46 L Pulse Ox 01/22/22 09:05 100 01/22/22 08:50 94 01/22/22 08:29 96 01/22/22 07:14 01/22/22 07:06 97 01/22/22 00:56 94 01/22/22 00:52 01/22/22 00:24 01/21/22 23:59 97 01/21/22 23:29 97 01/21/22 23:25 97 01/21/22 22:29 97 01/21/22 22:14 95 01/21/22 21:55 96 Laboratory Results 01/21/22 01/21/22 01/21/22 18:50 18:50 18:50 WBC 20.75 H RBC 3.33 L Hgb 6.3 L* Hct 23.3 L MCV 70.0 L MCH 18.9 L MCHC 27.0 L RDW Std Deviation 51.3 H RDW Coeff of Raul 19.8 H Plt Count 366 MPV 10.1 Immature Gran % (Auto) 0.6 Neut % (Auto) 82.4 Lymph % (Auto) 10.1 Nicollet % (Auto) 6.0 Eos % (Auto) 0.6 Baso % (Auto) 0.3 Neut # (Auto) 17.11 H Lymph # (Auto) 2.09 Nicollet # (Auto) 1.24 H Eos # (Auto) 0.13 Baso # (Auto) 0.06 Immature Gran # (Auto) 0.12 H Absolute Nucleated RBC 0.19 H Nucleated RBC % (auto) 0.9 Polychromasia 1+ Hypochromasia Present Anisocytosis Present Microcytosis Present Target Cells Tear Drop Cells Ovalocytes 1+ Sodium 134 L Potassium 4.5 Chloride 101 Carbon Dioxide 21 Anion Gap 12 H BUN 24 H Creatinine 1.33 H Est Cr Clr Drug Dosing Not Reportable Est GFR ( Amer) 52.8 Est GFR (Non-Af Amer) 45.5 BUN/Creatinine Ratio 18.0 Glucose 129 H Estimat Average Glucose Hemoglobin A1c Calcium 9.7 Magnesium Iron Transferrin Ferritin Total Bilirubin 0.4 AST 24 ALT 29 Alkaline Phosphatase 112 H Troponin I High Sens 5.8 Total Protein 7.2 Albumin 3.8 Globulin 3.4 Albumin/Globulin Ratio 1.1 TSH 5.366 H SARS-CoV-2, RNA, NAAT Blood Type Antibody Screen Crossmatch 01/21/22 01/21/22 01/22/22 19:53 20:33 05:38 WBC RBC Hgb Hct MCV MCH MCHC RDW Std Deviation RDW Coeff of Raul Plt Count MPV Immature Gran % (Auto) Neut % (Auto) Lymph % (Auto) Nicollet % (Auto) Eos % (Auto) Baso % (Auto) Neut # (Auto) Lymph # (Auto) Nicollet # (Auto) Eos # (Auto) Baso # (Auto) Immature Gran # (Auto) Absolute Nucleated RBC Nucleated RBC % (auto) Polychromasia Hypochromasia Anisocytosis Microcytosis Target Cells Tear Drop Cells Ovalocytes Sodium Potassium Chloride Carbon Dioxide Anion Gap BUN Creatinine Est Cr Clr Drug Dosing Est GFR ( Amer) Est GFR (Non-Af Amer) BUN/Creatinine Ratio Glucose Estimat Average Glucose Hemoglobin A1c Calcium Magnesium Iron Transferrin Ferritin Total Bilirubin AST ALT Alkaline Phosphatase Troponin I High Sens 5.7 Total Protein Albumin Globulin Albumin/Globulin Ratio TSH SARS-CoV-2, RNA, NAAT NEGATIVE Blood Type O Positive Antibody Screen NEGATIVE Crossmatch See Detail 01/22/22 01/22/22 01/22/22 05:38 05:38 05:38 WBC 15.64 H RBC 3.21 L Hgb 6.6 L* Hct 23.3 L MCV 72.6 L MCH 20.6 L MCHC 28.3 L RDW Std Deviation 58.1 H RDW Coeff of Raul 22.0 H Plt Count 258 MPV 9.3 Immature Gran % (Auto) 0.3 Neut % (Auto) 71.4 Lymph % (Auto) 19.2 Nicollet % (Auto) 7.0 Eos % (Auto) 1.8 Baso % (Auto) 0.3 Neut # (Auto) 11.16 H Lymph # (Auto) 3.01 Nicollet # (Auto) 1.09 H Eos # (Auto) 0.28 Baso # (Auto) 0.05 Immature Gran # (Auto) 0.05 H Absolute Nucleated RBC 0.13 H Nucleated RBC % (auto) 0.8 Polychromasia 1+ Hypochromasia Present Anisocytosis Present Microcytosis Present Target Cells 1+ Tear Drop Cells 1+ Ovalocytes Sodium 136 Potassium 4.0 Chloride 106 Carbon Dioxide 24 Anion Gap 6 BUN 29 H Creatinine 1.26 H Est Cr Clr Drug Dosing 77.3 Est GFR ( Amer) 56.3 Est GFR (Non-Af Amer) 48.6 BUN/Creatinine Ratio 23.0 H Glucose 102 H Estimat Average Glucose 123 Hemoglobin A1c 5.9 H Calcium 9.0 Magnesium 2.0 Iron Transferrin Ferritin Total Bilirubin AST ALT Alkaline Phosphatase Troponin I High Sens Total Protein Albumin Globulin Albumin/Globulin Ratio TSH SARS-CoV-2, RNA, NAAT Blood Type Antibody Screen Crossmatch 01/22/22 08:22 WBC RBC Hgb Hct MCV MCH MCHC RDW Std Deviation RDW Coeff of Raul Plt Count MPV Immature Gran % (Auto) Neut % (Auto) Lymph % (Auto) Nicollet % (Auto) Eos % (Auto) Baso % (Auto) Neut # (Auto) Lymph # (Auto) Nicollet # (Auto) Eos # (Auto) Baso # (Auto) Immature Gran # (Auto) Absolute Nucleated RBC Nucleated RBC % (auto) Polychromasia Hypochromasia Anisocytosis Microcytosis Target Cells Tear Drop Cells Ovalocytes Sodium Potassium Chloride Carbon Dioxide Anion Gap BUN Creatinine Est Cr Clr Drug Dosing Est GFR ( Amer) Est GFR (Non-Af Amer) BUN/Creatinine Ratio Glucose Estimat Average Glucose Hemoglobin A1c Calcium Magnesium Iron 36 Transferrin 361 H Ferritin 5.4 L Total Bilirubin AST ALT Alkaline Phosphatase Troponin I High Sens Total Protein Albumin Globulin Albumin/Globulin Ratio TSH SARS-CoV-2, RNA, NAAT Blood Type Antibody Screen Crossmatch Diagnostic Findings refusing pelvic ultrasound (1) Anemia Anemia type: unspecified type Qualified Code(s): D64.9 - Anemia, unspecified
[2022-01-22 09:43] LABS: Ferritin 5.4 ng/ml (8-388)
[2022-01-22 10:07] LABS: Thyroid Stimulating Hormone 3.524 uIu/ml (0.300-4.500)
[2022-01-22 10:09] LABS: T4 Free Thyroxine 1.06 ng/dl (0.61-1.60)
[2022-01-22] MEDS ORDERED: LORATADINE 10 MG TAB PO ONE (10:20)
[2022-01-22] MEDS: METOPROLOL SUCC 50MG EXT REL TAB PO SCH (11:31)
[2022-01-22] MEDS: LOSARTAN POTASSIUM 50 MG TAB PO SCH (11:32)
[2022-01-22] MEDS: amLODIPine BESYLATE 5 MG TAB PO SCH (11:32)
[2022-01-22 11:59] LABS: Hematocrit (blood only) 27.9 % (37-47); Hemoglobin 8.1 g/dL (12.0-16.0)
--- NOTE | 2022-01-22 12:35 | Hospitalist Progress Note ---
Date of Service January 22, 2022 Assessment & Plan (1) Anemia: (2) Menorrhagia with regular cycle: Plan: Symptomatic anemia Menorrhagia Hemoglobin 6.3, after 2 units of packed RBCs, improved to 8.3 Symptoms also improving MDS NURSE consulted Awaiting stool collection for fecal occult blood Iron level 35 Folate normal B12 pending Monitor closely Hypertension Continue amlodipine, losartan, metoprolol CKD stage III At baseline Prediabetes Depression Continue usual Wellbutrin and Effexor Disposition anticipate discharge to home tomorrow once hemoglobin is stable plan of care discussed with patient in detail and at length all questions answered She is understanding, agreeable, comfortable with the plan of care Admission and Anticipated Discharge Date Admission Date: January 21, 2022 Subjective Follow-up for symptomatic anemia Seen resting in bed, comfortable States she feels improved after 2 units of blood transfusion Denies active vaginal bleeding Also denies melena hematochezia no chest pain, dyspnea, palpitations, dizziness Tired because she has not slept well since admission Otherwise no other symptoms Review of Systems Review of Systems: all noted and negative except for above Physical Exam Physical Exam: General- oriented x 3, not in distress, speaks in sentences with no effort or accessory muscle use Head- atraumatic Eyes- PERRL, EOMI, anicteric ENT- oropharynx clear Neck- supple, no JVD, no adenopathy, no thyromegaly; carotids +2/2, no bruits appreciated Lungs- clear to auscultation bilaterally, no rales/wheezes Heart- normal rate, regular rhythm; no murmur, no gallop, no rub appreciated Abdomen- normal bowel sounds, nondistended, soft, nontender, no masses or hepatosplenomegaly Extremities- no pretibial edema, no calf tenderness; peripheral pulses intact Neuro- alert, oriented x 3; CN 2-12 grossly intact; motor 5/5 bilaterally;sensation 100% on all extremities; no other gross focal neurologic deficits Skin- warm & dry Results & Data Results & [facility] ([facility]) Vital Signs (Past 12 Hours) Vital Signs Temp Pulse Pulse Resp BP BP Pulse Ox 01/22/22 11:00 36.7 C 69 16 119/71 98 01/22/22 10:33 36.7 C 65 16 121/71 98 01/22/22 10:23 36.7 C 16 121/71 98 01/22/22 09:35 36.8 C 63 16 116/72 98 01/22/22 09:05 37.5 C 76 18 138/79 100 01/22/22 08:50 37.2 C 66 16 159/81 H 94 01/22/22 08:29 36.8 C 65 19 114/73 96 01/22/22 07:14 76 01/22/22 07:06 36.5 C 95 H 14 111/69 97 01/22/22 00:56 37 C 69 18 120/69 94 01/22/22 00:52 37 C 69 18 120/69 all noted and reviewed including below (1) Anemia Anemia type: unspecified type Qualified Code(s): D64.9 - Anemia, unspecified
[2022-01-22] MEDS ORDERED: buPROPion SR 100 MG TABCR PO STA ×2 (12:37)
[2022-01-22] MEDS: VENLAFAXINE HCL XR 150 MG CAPXR PO SCH (13:36)
[2022-01-22] MEDS: FERROUS SULFATE 325 MG/7.4 ML UDP PO SCH (17:10)
[2022-01-23] MEDS: LEVOTHYROXINE SODIUM 75 MCG TABLET PO SCH (05:37)
[2022-01-23 06:09] LABS: Hematocrit (blood only) 26.8 % (37-47); Hemoglobin 7.7 g/dL (12.0-16.0); Mean Corpuscular Hemoglobin 21.2 pg (25-34); Mean Corpuscular Hgb Conc 28.7 g/dL (32-36); Mean Corpuscular Volume 73.8 fL (80-100); Nucleated RBC # (auto) 0.12 K/uL (0-0); Platelet Count 250 K/uL (130-400); RDW Coefficient of Variation 22.4 % (11.5-14.5); RDW Standard Deviation 60.2 fL (36.4-46.3); Red Blood Count 3.63 M/uL (4.2-5.4); White Blood Count 11.88 K/uL (4.8-10.8)
[2022-01-23 06:33] LABS: Anisocytosis Present; Basophils # (auto) 0.03 K/uL (0-0.2); Basophils % (auto) 0.3 %; Eosinophils # (auto) 0.28 K/uL (0-0.5); Eosinophils % (auto) 2.4 %; Hypochromasia Present; Immature Granulocytes # (auto) 0.06 K/uL (0.00-0.02); Immature Granulocytes % (auto) 0.5 %; Lymphocytes # (auto) 1.76 K/uL (1.2-3.4); Lymphocytes % (auto) 14.8 %; Monocytes # (auto) 0.88 K/uL (0.11-0.59); Monocytes % (auto) 7.4 %; Neutrophils # (auto) 8.87 K/uL (1.4-6.5); Neutrophils % (auto) 74.6 %
[2022-01-23] MEDS ORDERED: SODIUM CHLORIDE 0.9% 250 ML IV PRN (07:39)
[2022-01-23] MEDS: CYCLOBENZAPRINE HCL 10 MG TAB PO SCH (07:48)
[2022-01-23] MEDS: VENLAFAXINE HCL XR 150 MG CAPXR PO SCH (07:54)
[2022-01-23] MEDS: BENZONATATE 100 MG CAPSULE PO SCH ×2 (07:54→14:17)
[2022-01-23] MEDS: LOSARTAN POTASSIUM 50 MG TAB PO SCH (07:54)
[2022-01-23] MEDS: FERROUS SULFATE 325 MG/7.4 ML UDP PO SCH (07:54)
[2022-01-23] MEDS: amLODIPine BESYLATE 5 MG TAB PO SCH (07:55)
[2022-01-23] MEDS: METOPROLOL SUCC 50MG EXT REL TAB PO SCH (07:55)
[2022-01-23] MEDS: PANTOprazole 40 MG in SYRINGE 0 ML IV SCH (07:56)
[2022-01-23] MEDS ORDERED: LORATADINE 10 MG TAB PO SCH (09:00)
[2022-01-23] MEDS ORDERED: buPROPion SR 100 MG TABCR PO SCH (09:00)
[2022-01-23 11:48] LABS: Hematocrit (blood only) 29.9 % (37-47); Hemoglobin 8.8 g/dL (12.0-16.0)
--- NOTE | 2022-01-23 13:41 | Hospitalist Progress Note ---
Date of Service January 23, 2022 Assessment & Plan (1) Anemia: (2) Menorrhagia with regular cycle: Plan: 1) Anemia: (2) Menorrhagia with regular cycle: Plan: Symptomatic anemia Menorrhagia Hemoglobin 6.3, after 3 units of packed RBCs, improved to 8.8 Symptoms also resolved [employer]CRA[employer] ENGINE [employer]CH[employer] SUPERVISOR consulted: Recommend outpatient endometrial biopsy Iron level 35 Folate normal B12 normal Follow-up with PCP next week with repeat CBC, then monitor regularly Please ensure patient has AIRCRAFT ENGINE MECHANIC SUPERVISOR follow-up in 1 to 2 weeks Hypertension Continue amlodipine, losartan, metoprolol CKD stage III At baseline Prediabetes Depression Continue usual Wellbutrin and Effexor plan of care discussed with patient in detail and at length all questions answered She is understanding, agreeable, comfortable with the plan of care Admission and Anticipated Discharge Date Admission Date: January 21, 2022 Subjective Follow-up for symptomatic anemia, etc. Status posttransfusion of 3 units packed RBCs this morning Seen resting in bed, comfortable, not distressed In good spirits States she feels better overall today Denies chest pain, shortness of breath, dizziness No vaginal bleeding or melena/hematochezia today No other symptoms States that she is ambulating in the hallways yesterday with no problems Ambulating in the room today with no problems States that she is ready and would like To be discharged Review of Systems Review of Systems: all noted and negative except for above Physical Exam Physical Exam: General- oriented x 3, not in distress, speaks in sentences with no effort or accessory muscle use Eyes- anicteric Neck- no JVD Lungs- clear breath sounds bilaterally, no wheezing, crackles noted Heart- normal rate, regular rhythm; no murmurs Abdomen- normal bowel sounds, nondistended, soft, nontender Extremities- no pretibial edema, no calf tenderness Neuro- alert, oriented x 3; no gross focal neurologic deficits Skin- warm & dry Results & Data Results & Data ([facility]) Vital Signs (Past 12 Hours) Vital Signs Temp Pulse Pulse Resp BP BP Pulse Ox 01/23/22 12:00 36.8 C 74 16 119/81 98 01/23/22 10:31 36.8 C 63 14 122/73 97 01/23/22 09:45 36.7 C 64 16 109/71 95 01/23/22 09:15 36.7 C 63 18 123/73 95 01/23/22 09:10 61 01/23/22 09:00 37 C 67 16 120/69 95 01/23/22 08:36 36.7 C 75 18 132/81 94 01/23/22 07:50 37.5 C 72 18 116/55 L 94 all noted and reviewed including below (1) Anemia Anemia type: unspecified type Qualified Code(s): D64.9 - Anemia, unspecified
--- NOTE | 2022-01-23 15:27 | Electrocardiogram Report ---
Test Reason : Blood Pressure : / mmHG Vent. Rate : 080 BPM Atrial Rate : 080 BPM P-R Int : 154 ms QRS Dur : 100 ms QT Int : 392 ms P-R-T Axes : 012 006 087 degrees QTc Int : 452 ms Normal sinus rhythm Nonspecific ST and T wave abnormality T wave abnormality, consider lateral ischemia Abnormal ECG No previous ECGs available Confirmed by Bossman Garcia ([id number]) on 01/23/2022 3:27:20 PM Referred By: Jo Ann Valle Confirmed By:Bossman Garcia
--- NOTE | 2022-01-23 17:02 | Discharge Summary ---
Date of Service January 23, 2022 Admission HPI Per Admitting Provider HISTORY OF PRESENT ILLNESS: This 51-year-old female with past medical history significant for anterior pituitary disorder, polycystic ovary, benign neoplasm of pituitary gland, acquired hypothyroidism, prediabetes, allergic rhinitis, asthma, mild intermittent; hypertension, morbid obesity, iron deficiency anemia, chronic kidney disease stage III, excessive bleeding in premenopausal period, arthritis of knee, fibromyalgia, osteoarthritis, major depression, history of chronic narcotic use, presents with dyspnea on exertion. The patient states walking few steps making her short of breath and also dizzy. That is the reason, she came in. Also having some allergies going on with some runny nose, sore throat, some dry cough, and also some earaches and impacted wax in her ears, supposed to see ENT soon. The patient has ongoing heavy menstrual bleeding. The patient was here last year in May 2021, received PRBC, and supposed to follow with POWER NUT RUNNER OPERATOR for ablation, but she did not follow up because she felt good, but after in July, she states she passed large amount of clots and she was feeling sick but she did not see POWER NUT RUNNER OPERATOR. In the ER also she refused pelvic exam and stool Hemoccult exam. The patient denies any blood in stools or black stools. No hematuria. Denies any headache. No blurred visions. Appetite is okay. No difficulty swallowing. No chest pain. Nausea from iron pills. No vomiting, no abdominal pain, hemodynamically stable. Admission Exam Per Admitting Provider GENERAL: The patient is obese, not in acute distress. VITAL SIGNS: Temperature 37.2, pulse 64, respiratory rate 18, blood pressure 120/46, oxygen 96% on room air. HEENT: Pupils equal, round and reactive to light. Oral mucosa moist. NECK: No JVD. No neck masses. CARDIOVASCULAR: S1 and S2 heard. Regular rate and rhythm. No murmur, no gallop. RESPIRATORY SYSTEM: Normal AP diameter. No accessory muscle use. No wheezing, no crackles. ABDOMEN: Soft, bowel sounds present, nontender, no distention. CENTRAL NERVOUS SYSTEM: Cranial nerves II-XII grossly intact, nonfocal. EXTREMITIES: No edema. Principal Diagnosis SYMPTOMATIC ANEMIA ANEMIA, IRON DEFICIENCY, SECONDARY TO MENORRHAGIA Discharge Exam General- oriented x 3, not in distress, speaks in sentences with no effort or accessory muscle use Eyes- anicteric Neck- no JVD Lungs- clear breath sounds bilaterally, no wheezing, crackles noted Heart- normal rate, regular rhythm; no murmurs Abdomen- normal bowel sounds, nondistended, soft, nontender Extremities- no pretibial edema, no calf tenderness Neuro- alert, oriented x 3; no gross focal neurologic deficits Skin- warm & dry Discharge Data Allergies Allergy/AdvReac Type Severity Reaction Status Date / Time aspirin Allergy Severe Anaphylaxis Verified 01/21/22 20:03 acetaminophen Allergy Intermediate Delayed Verified 01/21/22 20:03 (days later) hangover effect hydrocodone Allergy Intermediate Delayed Verified 01/21/22 20:03 (days later) hangover effect oxaprozin [From Daypro] Allergy Intermediate delayed Verified 01/21/22 20:03 (days later) hangover red dye Allergy Intermediate Itchiness Verified 01/21/22 20:03 and hives Consultations 01/21/22 20:41 ED Decision to Admit Stat 01/22/22 08:00 Consult Obstetrics Routine Hospital Course (1) Anemia: (2) Menorrhagia with regular cycle: 1) Anemia: (2) Menorrhagia with regular cycle: Plan: Symptomatic anemia Menorrhagia Iron deficiency Hemoglobin 6.3, after 3 units of packed RBCs, improved to 8.8 Symptoms also resolved POWER NUT RUNNER OPERATOR consulted: Recommend outpatient endometrial biopsy Iron level 35 Folate normal B12 normal Follow-up with PCP next week with repeat CBC, then monitor regularly Please ensure patient has POWER NUT RUNNER OPERATOR follow-up in 1 to 2 weeks Hypertension Continue amlodipine, losartan, metoprolol Echocardiogram: Moderate concentric left ventricular hypertrophy, left ventr icular wall motion is normal, ejection fraction 60 to 65% No significant valvular disease Follow-up with PCP for BP monitoring and control CKD stage III At baseline Prediabetes Depression Continue usual Wellbutrin and Effexor plan of care discussed with patient in detail and at length all questions answered She is understanding, agreeable, comfortable with the plan of care Total Time Total Time Spent Total Time Spent (In Minutes): >30 minutes Discharge Plan Discharge Items Patient Disposition: Home - Self-Care Reason For Visit: SOB/DIZZY Discharge Diagnosis: Symptomatic anemia Activity: As commented below Activity Comment: Resume activity gradually as tolerated Lifting: Wait until after follow-up appointment Exercise/Sports: Wait until after follow-up appointment Driving/Machine Use: No driving until reevaluated and allowed by primary care physician Non-emergency contact: Primary Care Provider Call non-emergency contact if: you have any medication questions, your symptoms worsen, your pain is not controlled, your pain is worsening, your pain is unusual for you, your pain is concerning for you and you have a fever Follow-up/Referrals: Jo Ann Valle DO [Primary Care Provider] - (Date & Time 01/28/2022 11:50 AM Provider Jo Ann Valle DO Department [facility] ) Diet: Heart Healthy Addtl Attending Provider Instructions: PLEASE REFER TO YOUR NEW MEDICATION LIST AND FOLLOW INSTRUCTIONS CAREFULLY. YOUR NEW MEDICATIONS INCLUDE: Ferrous sulfate-for iron deficiency anemia Ferrous sulfate may cause constipation. Take laxative daily. PLEASE CALL YOUR PRIMARY CARE PHYSICIAN OR RETURN TO THE ER IF WITH WORSENING OF SYMPTOMS, INCLUDING Diffuse vaginal bleeding, black stools or bloody stools, Weakness, dizziness, shortness of breath, chest pain FOLLOW UP WITH PRIMARY CARE PHYSICIAN OUTLINED ABOVE. FOLLOW-UP WITH LIFE SKILLS CONSULTANT SOON SCHEDULED. Pending Studies at Discharge: No Stand-Alone Forms: My [facility], Smoking Cessation Medications and DC Order Prescriptions: New ferrous sulfate 325 mg (65 mg iron) tablet 325 mg PO BID Qty: 60 RF: 0 Continued cyclobenzaprine 10 mg tablet 10 mg PO BID RF: 0 oxycodone 10 mg tablet 10 mg PO QID PRN (Reason: Severe Pain (Scale Score 7-10)) RF: 0 metoprolol succinate 100 mg tablet extended release 24 hr 100 mg PO DAILY RF: 0 levothyroxine 75 mcg tablet 75 mcg PO DAILYBB RF: 0 losartan 100 mg tablet 100 mg PO DAILY RF: 0 furosemide 20 mg tablet 20 mg PO DAILY PRN (Reason: Fluid Retention) RF: 0 bupropion HCl 200 mg tablet sustained-release 12 hr 200 mg PO BID RF: 0 amlodipine 5 mg tablet 5 mg PO DAILY RF: 0 loratadine-pseudoephedrine [Claritin-D 24 Hour] 10-240 mg Tablet Extended Release 24 Hr 1 tab PO DAILY RF: 0 ascorbic acid (vitamin C) [Vitamin C] 1,000 mg Tablet 1 g PO DAILY RF: 0 Discharge Orders: Discharge Order (Routine); Ordered 01/23/22 Ordered By: Ronal Cope Admission Data Admit Date/Time: 01/21/22 21:46 Attending Provider: Ronal Cope Admit Provider: Ronal Cope Primary Care Provider: Jo Ann Valle Other Providers: Jay Ugalde ; Steve Snow ; Mitra Hagen ; Sonal Oden ; Pierre Briones ; Ryan Curtis ; Fernando Hill ; Kaden Westfall ; Radha White ; Michelle Garcia V. ; Melinda Castillo ; Ban Mcleod ; Korina Dyer ; Ella Palma Other Interventions: Discharge Summary Assessment (RN) Last Done: 01/23/22 14:42
== END 2022-01-23 15:29 | disposition home or self-care (01) | DRG 812 ==
LOC: ED 17:44 → 2S 21:46
DX: I24.8 Other forms of acute ischemic heart disease; F32.A Depression, unspecified; E03.9 Hypothyroidism, unspecified; D50.0 Iron deficiency anemia secondary to blood loss (chronic); N92.0 Excessive and frequent menstruation with regular cycle; Z88.5 Allergy status to narcotic agent; E78.5 Hyperlipidemia, unspecified; Z68.42 Body mass index [BMI] 45.0-49.9, adult; Z88.6 Allergy status to analgesic agent; R73.03 Prediabetes; E66.01 Morbid (severe) obesity due to excess calories; N18.30 Chronic kidney disease, stage 3 unspecified; I12.9 Hypertensive chronic kidney disease with stage 1 through stage 4 chronic kidney disease, or unspecified chronic kidney disease

== ENCOUNTER 2022-08-12 19:36 | Inpatient (IN) ==
[2022-08-12 20:11] LABS: Hematocrit (blood only) 21.7 % (34.1-44.9); Hemoglobin 5.7 g/dl (12.0-16.0); Mean Corpuscular Hemoglobin 16.9 pg (25.0-34.0); Mean Corpuscular Hgb Conc 26.3 g/dL (32.0-36.0); Mean Corpuscular Volume 64.2 fL (80.0-100.0); Mean Platelet Volume 10.1 fL (9.4-12.3); Nucleated RBC # (auto) 0.11 K/uL (0-0); Nucleated RBC % (auto) 0.8 %; Platelet Count 322 K/uL (130-400); RDW Standard Deviation 43.7 fL (36.4-46.3); Red Blood Count 3.38 M/uL (3.93-5.22); White Blood Count 13.46 K/ul (4.8-10.8)
[2022-08-12] MEDS ORDERED: SODIUM CHLORIDE 0.9% 250 ML IV PRN (20:20)
[2022-08-12 20:27] LABS: Alanine Aminotransferase 10 U/L (7-52); Albumin Globulin Ratio 1.1 (0.9-2); Albumin Level 3.9 gm/dl (3.4-5.0); Alkaline Phosphatase 101 U/L (34-104); Anion Gap 12 (3-11); Aspartate Aminotransferase 11 U/L (13-39); BUN Creatinine Ratio 17.8 (10-20); Bilirubin,Total 0.3 mg/dl (0.2-1.0); Blood Urea Nitrogen 23 mg/dl (6-23); Carbon Dioxide 22 mmol/L (21-32); Chloride 101 mmol/L (98-107); Est GFR (African American) 54.8 ml/min; Est GFR (Non-African American) 47.2 ml/min; Globulin 3.4 gm/dl (2.5-4.0); Glucose 129 mg/dl (70-99(Fasting)); Potassium 3.7 mmol/L (3.5-5.1); Sodium 135 mmol/L (136-145); Total Protein 7.3 gm/dl (6.0-8.3)
[2022-08-12 20:34] LABS: Basophils # (auto) 0.09 K/uL (0-0.2); Basophils % (auto) 0.7 %; Eosinophils % (auto) 1.5 %; Hypochromasia Present; Immature Granulocytes # (auto) 0.06 K/uL (0.00-0.02); Immature Granulocytes % (auto) 0.4 %; Lymphocytes # (auto) 2.34 K/uL (1.2-3.4); Lymphocytes % (auto) 17.4 %; Monocytes # (auto) 1.06 K/uL (0.24-0.82); Monocytes % (auto) 7.9 %; Neutrophils # (auto) 9.71 K/uL (1.4-6.5); Neutrophils % (auto) 72.1 %; Ovalocytes 1+; Tear Drop Cells 1+
--- NOTE | 2022-08-12 20:51 | Emergency Department Note ---
Impression & Plan Microcytic anemia, BARAJAS (dyspnea on exertion), Intermittent chest pain, Weakness ED Provider Note Provider: Colten Momin MD DATE OF SERVICE: 08/12/2022 CHIEF COMPLAINT: Dyspnea on exertion, intermittent chest pain, weakness HISTORY OF PRESENT ILLNESS: Patient is a 51-year-old female history of pituitary disorder, polycystic ovary, hypothyroidism, hypertension, iron deficiency anemia, CKD, fibromyalgia, and history of vaginal bleeding presenting here today reporting she had a bit of a URI with slight cough or cold in June but over the last 6 weeks or so has had worsening shortness of breath with exertion and increased fatigue. States that she has been hospitalized in the past with anemia requiring transfusion for heavy vaginal bleeding. States her vaginal bleeding has improved over the last several months and has not been severe. Last period was about 2 weeks ago for 5 to 7 days. Denies current active bleeding. Denies dark stool. Denies any other significant falls or trauma. Reports that now even getting up and walking across the room she is getting short of breath and cannot walk her dog due to shortness of breath and a little bit of chest pressure/pain that occurs. Denies pain currently. Again denies abdominal upset. Patient states she was unable to close the loop to follow-up with gynecology after her admission in January. She states she is feeling worse t liyah than she has in the past. Denies the use of any anticoagulants or aspirin. REVIEW OF SYSTEMS: A total of 10 review of systems was obtained and negative except as stated above in the HPI. PAST MEDICAL HISTORY: As noted above MEDICATIONS: Reviewed home medications FMH: Cardiac disease reported SOCIAL HISTORY: Denies smoking PHYSICAL EXAM: GENERAL: alert and oriented in no acute distress on stretcher Head: normocephalic and atraumatic EYES: No injection, discharge or icterus. NECK: Trachea midline. LUNGS: Airway patent. No retractions. Breath sounds clear with good air entry bilaterally. HEART: Regular rate and rhythm. No chest wall tenderness ABDOMEN: Soft and non-tender, without guarding or rebound. SKIN: Acyanotic, warm, dry, without rashes EXTREMITIES: Without swelling, tenderness or deformity NEUROLOGICAL: No focal deficits. No aphasia. No facial droop or slurred speech. Ambulatory. EK bpm normal sinus rhythm. No PVC or PAC with a QTC of 463. No acute ST depression with some questionable repolarization change in V1 and V2.Bit of artifact today back in comparison to previous from January of this year along with any significant ST depression although some slight V1/V2 changes noted today. CONTINUOUS CARDIAC MONITORING: was ordered and showed a heart rate of 70s-80s bpm in Normal sinus rhythm. 1 view chest x-ray per my interpretation: No pneumothorax. Some cardiomegaly. No free air under the diaphragm. No clear consolidation or significant pleural effusion noted. Patient's laboratory studies and imaging reviewed. Differential includes Infection, dehydration, metabolic abnormality, hypo/hyperglycemia, electrolyte disturbance, anemia, hypoxia, cardiac sources, as well as other pathologies. IMPRESSION/MEDICAL DECISION MAKING: Patient with dyspnea on exertion some exertional chest discomfort with significant anemia. Iron panel ordered. Patient is not in shock or hypotensive. 3 Units of blood ordered after the patient was consented for blood transfusion. Denies any dark stools. Discussed with her given the history of vaginal bleeding as a source in the past would recommend a transvaginal ultrasound to possibly reevaluate for this. She declined after discussion. Again not having strong symptoms indicative of a GI bleed. BUN not elevated. Stable renal function. Troponin and chest x-ray sent although it sounds like this is more of a anemia driven process but the patient has some concerns for cardiac disease given strong family history. Some cardiomegaly but no troponin elevation or significant pulmonary edema noted. Discussed with her the need for transfusion as well as further care here at the hospital for multiple units of blood. She was in agreement with this. Urinalysis returns question contamination will defer antibiotics. DIAGNOSIS: Microcytic anemia, dyspnea on exertion, weakness, intermittent chest discomfort DISPOSITION: Hospitalist will evaluate Patient was agreeable with this plan. Critical Care I have personally spent 31 minutes of critical care time in the direct man agement of this patient. This includes bedside care, interpretation of diagnostic studies, and testing, discussion with consultants, patient, and family members, and other required patient management activities. These 31 minutes is in excess of all separately billable procedures. Past Med/Surg History Medical History Anemia Arthritis Asthma Depression Environmental allergies High blood pressure Surgical History H/O carpal tunnel repair History of orthopedic surgery Social History Smoking Status: Never smoker Second Hand Exposure: Yes; Hx Alcohol Use: No Hx Substance Use: No Preferred Language: Slovak Communication Ability: Effective Watch Band Assembler Required: No Beliefs That Will Affect Care: None Current Living Situation: Alone How many Children do You have: 0 Feels Safe at Home: Yes Assistive Devices: Cane Allergies Allergies Allergy/AdvReac Type Severity Reaction Status Date / Time aspirin Allergy Severe Anaphylaxis Verified 01/21/22 20:03 acetaminophen Allergy Intermediate Delayed Verified 01/21/22 20:03 (days later) hangover effect hydrocodone Allergy Intermediate Delayed Verified 01/21/22 20:03 (days later) hangover effect oxaprozin [From Daypro] Allergy Intermediate delayed Verified 01/21/22 20:03 (days later) hangover red dye Allergy Intermediate Itchiness Verified 01/21/22 20:03 and hives Home Meds Home Medications Medication Instructions Recorded Confirmed amlodipine 5 mg tablet 5 mg PO DAILY 05/17/21 08/12/22 bupropion HCl 200 mg tablet,12 hr 200 mg PO BID 05/17/21 08/12/22 sustained-release cyclobenzaprine 10 mg tablet 10 mg PO BID PRN Pain, Moderate 05/17/21 08/12/22 furosemide 20 mg tablet 20 mg PO DAILY 05/17/21 08/12/22 levothyroxine 75 mcg tablet 75 mcg PO DAILYBB 05/17/21 08/12/22 losartan 100 mg tablet 100 mg PO DAILY 05/17/21 08/12/22 metoprolol succinate 100 mg 100 mg PO DAILY 05/17/21 08/12/22 tablet,extended release 24 hr oxycodone 10 mg tablet 10 mg PO QID PRN Severe Pain 05/17/21 08/12/22 (Scale Score 7-10) loratadine-pseudoephedrine ER 10 1 tab PO DAILY 11/06/21 08/12/22 mg-240 mg tablet,extended [id number] (Claritin-D 24 Hour) ascorbic acid (vitamin C) 1,000 mg 1 g PO DAILY 01/21/22 08/12/22 tablet (Vitamin C) albuterol sulfate 90 mcg/actuation 2 puff inhalation Q4H PRN Wheezing 08/12/22 08/12/22 aerosol inhaler ofloxacin 0.3 % eye drops 4 drp otic (ear) BID PRN Ear Pain 08/12/22 08/12/22 venlafaxine 150 mg 300 mg PO DAILY 08/12/22 08/12/22 capsule,extended release 24 hr Previous Rx's Medication Instructions Recorded ferrous sulfate 325 mg (65 mg 325 mg PO BID #60 tabs 01/23/22 iron) tablet Results & Data (ED) Vital Signs Vital Signs - 24 hr 08/12/22 19:41 08/12/22 21:07 08/12/22 22:09 Temperature 36.8 C 36.9 C Temperature Source Temporal Artery Scan Oral Pulse Rate 77 73 Pulse Rate [Apical] 75 Pulse Rhythm Pulse Strength Respiratory Rate 18 20 Respiratory Effort / Characteristics Non-Labored Spontaneous Non-Labored Spontaneous Respiratory Depth Normal Normal Blood Pressure 136/58 L 174/66 H Blood Pressure [Right Arm] 157/69 H Blood Pressure Mean 84 102 Blood Pressure Mean [Right Arm] 98 Blood Pressure Position Pulse Oximetry 99 97 98 Oxygen Delivery Method Room Air Room Air Sepsis Recent Fever Within 48 Hours No Sepsis New/Unexplained Change in Mental Status No Sepsis Action Taken by Nursing No Action Required 08/12/22 22:31 08/12/22 22:46 08/12/22 23:16 Temperature 36.8 C 37 C 36.9 C Temperature Source Oral Oral Oral Pulse Rate 76 74 76 Pulse Rate [Apical] Pulse Rhythm Pulse Strength Respiratory Rate 20 18 16 Respiratory Effort / Characteristics Respiratory Depth Blood Pressure 174/92 H 156/70 H 174/76 H Blood Pressure [Right Arm] Blood Pressure Mean 119 98 108 Blood Pressure Mean [Right Arm] Blood Pressure Position Lying Lying Pulse Oximetry 99 98 97 Oxygen Delivery Method Sepsis Recent Fever Within 48 Hours Sepsis New/Unexplained Change in Mental Status Sepsis Action Taken by Nursing 08/13/22 00:12 08/13/22 01:09 Temperature 36.8 C 36.9 C Temperature Source Oral Oral Pulse Rate 74 73 Pulse Rate [Apical] Pulse Rhythm Regular Pulse Strength Normal Respiratory Rate 16 Respiratory Effort / Characteristics Respiratory Depth Blood Pressure 166/80 H 134/60 Blood Pressure [Right Arm] Blood Pressure Mean 108 84 Blood Pressure Mean [Right Arm] Blood Pressure Position Pulse Oximetry 98 97 Oxygen Delivery Method Sepsis Recent Fever Within 48 Hours Sepsis New/Unexplained Change in Mental Status Sepsis Action Taken by Nursing Laboratory Data Result diagrams: 08/12/22 19:52 08/12/22 19:52 Lab Results 08/12/22 08/12/22 08/12/22 Range/Units 19:52 19:52 19:52 WBC 13.46 H (4.8-10.8) K/ul RBC 3.38 L (3.93-5.22) M/uL Hgb 5.7 L* (12.0-16.0) g/dl Hct 21.7 L (34.1-44.9) % MCV 64.2 L (80.0-100.0) fL MCH 16.9 L (25.0-34.0) pg MCHC 26.3 L (32.0-36.0) g/dL RDW Std Deviation 43.7 (36.4-46.3) fL RDW Coeff of Raul 19.0 H (11.5-14.5) % Plt Count 322 (130-400) K/uL MPV 10.1 (9.4-12.3) fL Immature Gran % (Auto) 0.4 % Neut % (Auto) 72.1 % Lymph % (Auto) 17.4 % Hall % (Auto) 7.9 % Eos % (Auto) 1.5 % Baso % (Auto) 0.7 % Neut # (Auto) 9.71 H (1.4-6.5) K/uL Lymph # (Auto) 2.34 (1.2-3.4) K/uL Hall # (Auto) 1.06 H (0.24-0.82) K/uL Eos # (Auto) 0.20 (0-0.50) K/uL Baso # (Auto) 0.09 (0-0.2) K/uL Immature Gran # (Auto) 0.06 H (0.00-0.02) K/uL Absolute Nucleated RBC 0.11 H (0-0) K/uL Nucleated RBC % (auto) 0.8 % Hypochromasia Present Tear Drop Cells 1+ Ovalocytes 1+ Sodium 135 L (136-145) mmol/L Potassium 3.7 (3.5-5.1) mmol/L Chloride 101 (98-107) mmol/L Carbon Dioxide 22 (21-32) mmol/L Anion Gap 12 H (3-11) BUN 23 (6-23) mg/dl Creatinine 1.29 H (0.6-1.2) mg/dl Est Cr Clr Drug Dosing Not Reportable Est GFR ( Amer) 54.8 ml/min Est GFR (Non-Af Amer) 47.2 ml/min BUN/Creatinine Ratio 17.8 (10-20) Glucose 129 H (70-99(Fasting)) mg/dl Calcium 9.0 (8.5-10.1) mg/dl Magnesium (1.7-2.4) mg/dl Iron (35-150) mcg/dl TIBC (250-450) mcg/dl Unsaturated IBC (155-355) mcg/dl Transferrin % Sat (15-50) % Total Bilirubin 0.3 (0.2-1.0) mg/dl AST 11 L (13-39) U/L ALT 10 (7-52) U/L Alkaline Phosphatase 101 (34-104) U/L Troponin I High Sens 9.2 (0-14) pg/ml Total Protein 7.3 (6.0-8.3) gm/dl Albumin 3.9 (3.4-5.0) gm/dl Globulin 3.4 (2.5-4.0) gm/dl Albumin/Globulin Ratio 1.1 (0.9-2) Urine Color Urine Appearance (Clear) Urine pH (4.5-7.5) Ur Specific Viola (1.000-1.030) Urine Protein (Negative) Urine Glucose (UA) (Negative) Urine Ketones (Negative) Urine Blood (Negative) Urine Nitrite (Negative) Urine Bilirubin (Negative) Urine Urobilinogen (Negative) Ur Leukocyte Esterase (Negative) Urine WBC (Auto) (0-5) /hpf Urine RBC (Auto) (0-4) /hpf U Hyaline Cast (Auto) (0-5) /lpf U Epithel Cells (Auto) (0-5) /lpf Urine Bacteria (Auto) (Negative) POC Ur Test (NEG) SARS-CoV-2, RNA, NAAT (NEGATIVE) Blood Type Antibody Screen Crossmatch 08/12/22 08/12/22 08/12/22 Range/Units 19:52 19:52 20:40 WBC (4.8-10.8) K/ul RBC (3.93-5.22) M/uL Hgb (12.0-16.0) g/dl Hct (34.1-44.9) % MCV (80.0-100.0) fL MCH (25.0-34.0) pg MCHC (32.0-36.0) g/dL RDW Std Deviation (36.4-46.3) fL RDW Coeff of Raul (11.5-14.5) % Plt Count (130-400) K/uL MPV (9.4-12.3) fL Immature Gran % (Auto) % Neut % (Auto) % Lymph % (Auto) % Hall % (Auto) % Eos % (Auto) % Baso % (Auto) % Neut # (Auto) (1.4-6.5) K/uL Lymph # (Auto) (1.2-3.4) K/uL Hall # (Auto) (0.24-0.82) K/uL Eos # (Auto) (0-0.50) K/uL Baso # (Auto) (0-0.2) K/uL Immature Gran # (Auto) (0.00-0.02) K/uL Absolute Nucleated RBC (0-0) K/uL Nucleated RBC % (auto) % Hypochromasia Tear Drop Cells Ovalocytes Sodium (136-145) mmol/L Potassium (3.5-5.1) mmol/L Chloride (98-107) mmol/L Carbon Dioxide (21-32) mmol/L Anion Gap (3-11) BUN (6-23) mg/dl Creatinine (0.6-1.2) mg/dl Est Cr Clr Drug Dosing Est GFR ( Amer) ml/min Est GFR (Non-Af Amer) ml/min BUN/Creatinine Ratio (10-20) Glucose (70-99(Fasting)) mg/dl Calcium (8.5-10.1) mg/dl Magnesium 1.7 (1.7-2.4) mg/dl Iron 16 L (35-150) mcg/dl TIBC 519 H (250-450) mcg/dl Unsaturated IBC 503 H (155-355) mcg/dl Transferrin % Sat 3 L (15-50) % Total Bilirubin (0.2-1.0) mg/dl AST (13-39) U/L ALT (7-52) U/L Alkaline Phosphatase (34-104) U/L Troponin I High Sens (0-14) pg/ml Total Protein (6.0-8.3) gm/dl Albumin (3.4-5.0) gm/dl Globulin (2.5-4.0) gm/dl Albumin/Globulin Ratio (0.9-2) Urine Color Urine Appearance (Clear) Urine pH (4.5-7.5) Ur Specific Viola (1.000-1.030) Urine Protein (Negative) Urine Glucose (UA) (Negative) Urine Ketones (Negative) Urine Blood (Negative) Urine Nitrite (Negative) Urine Bilirubin (Negative) Urine Urobilinogen (Negative) Ur Leukocyte Esterase (Negative) Urine WBC (Auto) (0-5) /hpf Urine RBC (Auto) (0-4) /hpf U Hyaline Cast (Auto) (0-5) /lpf U Epithel Cells (Auto) (0-5) /lpf Urine Bacteria (Auto) (Negative) POC Ur Test (NEG) SARS-CoV-2, RNA, NAAT (NEGATIVE) Blood Type O Positive Antibody Screen NEGATIVE Crossmatch See Detail 08/12/22 08/12/22 08/12/22 Range/Units 20:45 21:00 21:12 WBC (4.8-10.8) K/ul RBC (3.93-5.22) M/uL Hgb (12.0-16.0) g/dl Hct (34.1-44.9) % MCV (80.0-100.0) fL MCH (25.0-34.0) pg MCHC (32.0-36.0) g/dL RDW Std Deviation (36.4-46.3) fL RDW Coeff of Raul (11.5-14.5) % Plt Count (130-400) K/uL MPV (9.4-12.3) fL Immature Gran % (Auto) % Neut % (Auto) % Lymph % (Auto) % Hall % (Auto) % Eos % (Auto) % Baso % (Auto) % Neut # (Auto) (1.4-6.5) K/uL Lymph # (Auto) (1.2-3.4) K/uL Hall # (Auto) (0.24-0.82) K/uL Eos # (Auto) (0-0.50) K/uL Baso # (Auto) (0-0.2) K/uL Immature Gran # (Auto) (0.00-0.02) K/uL Absolute Nucleated RBC (0-0) K/uL Nucleated RBC % (auto) % Hypochromasia Tear Drop Cells Ovalocytes Sodium (136-145) mmol/L Potassium (3.5-5.1) mmol/L Chloride (98-107) mmol/L Carbon Dioxide (21-32) mmol/L Anion Gap (3-11) BUN (6-23) mg/dl Creatinine (0.6-1.2) mg/dl Est Cr Clr Drug Dosing Est GFR ( Amer) ml/min Est GFR (Non-Af Amer) ml/min BUN/Creatinine Ratio (10-20) Glucose (70-99(Fasting)) mg/dl Calcium (8.5-10.1) mg/dl Magnesium (1.7-2.4) mg/dl Iron (35-150) mcg/dl TIBC (250-450) mcg/dl Unsaturated IBC (155-355) mcg/dl Transferrin % Sat (15-50) % Total Bilirubin (0.2-1.0) mg/dl AST (13-39) U/L ALT (7-52) U/L Alkaline Phosphatase (34-104) U/L Troponin I High Sens (0-14) pg/ml Total Protein (6.0-8.3) gm/dl Albumin (3.4-5.0) gm/dl Globulin (2.5-4.0) gm/dl Albumin/Globulin Ratio (0.9-2) Urine Color Yellow Urine Appearance Cloudy A (Clear) Urine pH 6.0 (4.5-7.5) Ur Specific Viola 1.016 (1.000-1.030) Urine Protein Trace H (Negative) Urine Glucose (UA) Negative (Negative) Urine Ketones Negative (Negative) Urine Blood 1+ H (Negative) Urine Nitrite Positive A (Negative) Urine Bilirubin Negative (Negative) Urine Urobilinogen Negative (Negative) Ur Leukocyte Esterase 2+ H (Negative) Urine WBC (Auto) >30 H (0-5) /hpf Urine RBC (Auto) 10-30 H (0-4) /hpf U Hyaline Cast (Auto) 10-30 H (0-5) /lpf U Epithel Cells (Auto) >30 H (0-5) /lpf Urine Bacteria (Auto) 4+ H (Negative) POC Ur Test NEG (NEG) SARS-CoV-2, RNA, NAAT NEGATIVE (NEGATIVE) Blood Type Antibody Screen Crossmatch Discharge Plan Visit Data Chief Complaint: Illness Stated Complaint: SHORTNESS OF BREATHE, ANEMIA ED Provider: Colten Momin Discharge Problem: Microcytic anemia, BARAJAS (dyspnea on exertion), Intermittent chest pain, Weakness Patient Disposition: Being Evaluated by Hospitalist Discharge Instructions Interventions: ED Discharge Assessment Last Done: 08/13/22 01:40
[2022-08-12 21:16] LABS: Iron 16 mcg/dl (35-150)
[2022-08-12 21:25] LABS: Total Iron Binding Cap Calc 519 mcg/dl (250-450); Transferrin (FE) Percent Satur 3 % (15-50); Unsaturated Iron Binding Cap 503 mcg/dl (155-355)
[2022-08-12 21:36] LABS: Appearance Urine Cloudy (Clear); Bacteria Urine Automated 4+ (Negative); Bilirubin Urine Negative (Negative); Blood Urine 1+ (Negative); Color Urine Yellow; Epithelial Cell Urine Auto >30 /lpf (0-5); Glucose Urine UA Negative (Negative); Ketones Urine Negative (Negative); Leukocyte Esterase Urine 2+ (Negative); Nitrite Urine Positive (Negative); Protein Urine Trace (Negative); Specific Gravity Urine 1.016 (1.000-1.030); Urobilinogen Urine Negative (Negative); WBC Urine Automated >30 /hpf (0-5)
--- NOTE | 2022-08-13 01:23 | History & Physical Report ---
Date of Service August 13, 2022 Assessment & Plan (1) Symptomatic anemia: Plan: Acute on chronic anemia, hemoglobin drop from baseline Recurrent admissions for problem Slow blood loss from menorrhagia Rule out production problem, GI bleed hypertension, slightly elevated bronchial asthma, not in acute exacerbation CRI, creatinine better than baseline pituitary cyst, patient follows with [facility] Endocrinology prediabetes, hemoglobin A1c of 5.8 last October 2021 hx PCOS hx fibromyalgia mood disorder/personality disorder as per records Medical telemetry Transfuse PRBC to maintain hemoglobin above 8 Outpatient Gynecology and Hematology evaluations for menorrhagia and recurrent anemia, respectively FOBT DVT prophylaxis. SCDs Full code Text document was generated using [employer] voice recognition software. It may contain grammatical or spelling errors. Kindly contact undersigned for clarification of any documentation item in question. History of Present Illness Chief Complaint: Exertional shortness of breath Primary Care Provider: Jo Ann Valle DO History obtained from patient and records. Medical history significant for hypertension, bronchial asthma, CRI (baseline creatinine 1.5 ), chronic anemia (baseline hemoglobin 7-8), pituitary cyst, prediabetes, PCOS, fibromyalgia, mood disorder, personality disorder as per records. Last confinement January 2022 for symptomatic anemia attributed to menorrhagia. Iron deficiency anemia on work-up. Patient refused imaging and pelvic exam recommended by bearing maker. Outpatient gynecology appointment recommended. Patient unable to comply with outpatient appointments. 2 months ago, patient noted gradually worsening shortness of breath on exertion. Started with a respiratory tract infection. Not sure about COVID-19 contacts. Patient has not received COVID-19 vaccination. Cough symptoms productive of clear sputum clearing up. Some chest pressure from coughing. Vaginal bleeding from periods not more than usual. Patient denies abdominal pain, black/bloody stools. Worsening symptoms noted in the last week. Patient seen at PCP's office yesterday. Patient directed to ER for evaluation. Hemoglobin noted to be 5.7 3 units packed RBC transfused at the ER. Medical History as above Surgical History : Endometrial biopsy, carpal tunnel surgery, Achilles tendon repair Family History : Breast cancer, heart disease Personal/Social history : Non-smoker, rare EtOH intake, unemployed Allergies Allergy/AdvReac Type Severity Reaction Status Date / Time aspirin Allergy Severe Anaphylaxis Verified 01/21/22 20:03 acetaminophen Allergy Intermediate Delayed Verified 01/21/22 20:03 (days later) hangover effect hydrocodone Allergy Intermediate Delayed Verified 01/21/22 20:03 (days later) hangover effect oxaprozin [From Daypro] Allergy Intermediate delayed Verified 01/21/22 20:03 (days later) hangover red dye Allergy Intermediate Itchiness Verified 01/21/22 20:03 and hives Home Medications Medication Instructions Recorded Confirmed Type amlodipine 5 mg tablet 5 mg PO DAILY 05/17/21 08/12/22 History bupropion HCl 200 mg tablet,12 hr 200 mg PO BID 05/17/21 08/12/22 History sustained-release cyclobenzaprine 10 mg tablet 10 mg PO BID PRN Pain, Moderate 05/17/21 08/12/22 History furosemide 20 mg tablet 20 mg PO DAILY 05/17/21 08/12/22 History levothyroxine 75 mcg tablet 75 mcg PO DAILYBB 05/17/21 08/12/22 History losartan 100 mg tablet 100 mg PO DAILY 05/17/21 08/12/22 History metoprolol succinate 100 mg 100 mg PO DAILY 05/17/21 08/12/22 History tablet,extended release 24 hr oxycodone 10 mg tablet 10 mg PO QID PRN Severe Pain 05/17/21 08/12/22 History (Scale Score 7-10) loratadine-pseudoephedrine ER 10 1 tab PO DAILY 11/06/21 08/12/22 History mg-240 mg tablet,extended [id number] (Claritin-D 24 Hour) ascorbic acid (vitamin C) 1,000 mg 1 g PO DAILY 01/21/22 08/12/22 History tablet (Vitamin C) ferrous sulfate 325 mg (65 mg 325 mg PO BID #60 tabs 01/23/22 08/12/22 Rx iron) tablet albuterol sulfate 90 mcg/actuation 2 puff inhalation Q4H PRN Wheezing 08/12/22 08/12/22 History aerosol inhaler ofloxacin 0.3 % eye drops 4 drp otic (ear) BID PRN Ear Pain 08/12/22 08/12/22 History venlafaxine 150 mg 300 mg PO DAILY 08/12/22 08/12/22 History capsule,extended release 24 hr Past Med/Surg History Medical History Anemia Arthritis Asthma Depression Environmental allergies High blood pressure Surgical History H/O carpal tunnel repair History of orthopedic surgery Social History Smoking Status: Never smoker Second Hand Exposure: Yes; Hx Alcohol Use: No Hx Substance Use: No Preferred Language: Greek Communication Ability: Effective Audio Visual Arts Director Required: No Beliefs That Will Affect Care: None Current Living Situation: Alone How many Children do You have: 0 Feels Safe at Home: Yes Assistive Devices: None Review of Systems Review of Systems: As per HPI, all other systems reviewed and negative Physical Exam Physical Exam: GENERAL: Comfortable, morbidly obese, no respiratory distress SKIN: Pallor warm HEENT: Pale palpebral conjunctivae, no ptosis, dry buccal mucosa NECK : Supple, short neck, no tenderness CHEST : CTA, no tenderness HEART : RRR, no obvious murmurs ABDOMEN: Some distention, nontender RECTAL : Refused EXTREMITIES : Minimal LE swelling, no LE tenderness, no other conspicuous deformities noted NEUROLOGIC : Coherent, no facial asymmetry, no other gross focality Results & Data Results & [facility] ([facility] Vital Signs (Past 12 Hours) Vital Signs Temp Pulse Pulse Resp BP BP Pulse Ox 08/13/22 01:09 36.9 C 73 134/60 97 08/13/22 00:12 36.8 C 74 16 166/80 H 98 08/12/22 23:16 36.9 C 76 16 174/76 H 97 08/12/22 22:46 37 C 74 18 156/70 H 98 08/12/22 22:31 36.8 C 76 20 174/92 H 99 08/12/22 22:09 36.9 C 73 174/66 H 98 08/12/22 21:07 75 20 157/69 H 97 08/12/22 19:41 36.8 C 77 18 136/58 L 99 O2 Del Method 08/13/22 01:09 08/13/22 00:12 08/12/22 23:16 08/12/22 22:46 08/12/22 22:31 08/12/22 22:09 08/12/22 21:07 Room Air 08/12/22 19:41 Room Air Laboratory Results Laboratory Results WBC 13.46 K/ul (4.8-10.8) H 08/12/22 19:52 RBC 3.38 M/uL (3.93-5.22) L 08/12/22 19:52 Hgb 5.7 g/dl (12.0-16.0) L* 08/12/22 19:52 Hct 21.7 % (34.1-44.9) L 08/12/22 19:52 MCV 64.2 fL (80.0-100.0) L 08/12/22 19:52 MCH 16.9 pg (25.0-34.0) L 08/12/22 19:52 MCHC 26.3 g/dL (32.0-36.0) L 08/12/22 19:52 RDW Std Deviation 43.7 fL (36.4-46.3) 08/12/22 19:52 RDW Coeff of Raul 19.0 % (11.5-14.5) H 08/12/22 19:52 Plt Count 322 K/uL (130-400) 08/12/22 19:52 MPV 10.1 fL (9.4-12.3) 08/12/22 19:52 Immature Gran % (Auto) 0.4 % 08/12/22 19:52 Neut % (Auto) 72.1 % 08/12/22 19:52 Lymph % (Auto) 17.4 % 08/12/22 19:52 [place] % (Auto) 7.9 % 08/12/22 19:52 Eos % (Auto) 1.5 % 08/12/22 19:52 Baso % (Auto) 0.7 % 08/12/22 19:52 Neut # (Auto) 9.71 K/uL (1.4-6.5) H 08/12/22 19:52 Lymph # (Auto) 2.34 K/uL (1.2-3.4) 08/12/22 19:52 [place] # (Auto) 1.06 K/uL (0.24-0.82) H 08/12/22 19:52 Eos # (Auto) 0.20 K/uL (0-0.50) 08/12/22 19:52 Baso # (Auto) 0.09 K/uL (0-0.2) 08/12/22 19:52 Immature Gran # (Auto) 0.06 K/uL (0.00-0.02) H 08/12/22 19:52 Absolute Nucleated RBC 0.11 K/uL (0-0) H 08/12/22 19:52 Nucleated RBC % (auto) 0.8 % 08/12/22 19:52 Hypochromasia Present 08/12/22 19:52 Tear Drop Cells 1+ 08/12/22 19:52 Ovalocytes 1+ 08/12/22 19:52 Sodium 135 mmol/L (136-145) L 08/12/22 19:52 Potassium 3.7 mmol/L (3.5-5.1) 08/12/22 19:52 Chloride 101 mmol/L (98-107) 08/12/22 19:52 Carbon Dioxide 22 mmol/L (21-32) 08/12/22 19:52 Anion Gap 12 (3-11) H 08/12/22 19:52 BUN 23 mg/dl (6-23) 08/12/22 19:52 Creatinine 1.29 mg/dl (0.6-1.2) H 08/12/22 19:52 Est Cr Clr Drug Dosing Not Reportable 08/12/22 19:52 Est GFR ( Amer) 54.8 ml/min 08/12/22 19:52 Est GFR (Non-Af Amer) 47.2 ml/min 08/12/22 19:52 BUN/Creatinine Ratio 17.8 (10-20) 08/12/22 19:52 Glucose 129 mg/dl (70-99(Fasting)) H 08/12/22 19:52 Calcium 9.0 mg/dl (8.5-10.1) 08/12/22 19:52 Magnesium 1.7 mg/dl (1.7-2.4) 08/12/22 19:52 Iron 16 mcg/dl (35-150) L 08/12/22 19:52 TIBC 519 mcg/dl (250-450) H 08/12/22 19:52 Unsaturated IBC 503 mcg/dl (155-355) H 08/12/22 19:52 Transferrin % Sat 3 % (15-50) L 08/12/22 19:52 Total Bilirubin 0.3 mg/dl (0.2-1.0) 08/12/22 19:52 AST 11 U/L (13-39) L 08/12/22 19:52 ALT 10 U/L (7-52) 08/12/22 19:52 Alkaline Phosphatase 101 U/L (34-104) 08/12/22 19:52 Troponin I High Sens 9.2 pg/ml (0-14) 08/12/22 19:52 Total Protein 7.3 gm/dl (6.0-8.3) 08/12/22 19:52 Albumin 3.9 gm/dl (3.4-5.0) 08/12/22 19:52 Globulin 3.4 gm/dl (2.5-4.0) 08/12/22 19: Albumin/Globulin Ratio 1.1 (0.9-2) 08/12/22 19:52 Urine Color Yellow 08/12/22 20:45 Urine Appearance Cloudy (Clear) A 08/12/22 20:45 Urine pH 6.0 (4.5-7.5) 08/12/22 20:45 Ur Specific [place] 1.016 (1.000-1.030) 08/12/22 20:45 Urine Protein Trace (Negative) H 08/12/22 20:45 Urine Glucose (UA) Negative (Negative) 08/12/22 20:45 Urine Ketones Negative (Negative) 08/12/22 20:45 Urine Blood 1+ (Negative) H 08/12/22 20:45 Urine Nitrite Positive (Negative) A 08/12/22 20:45 Urine Bilirubin Negative (Negative) 08/12/22 20:45 Urine Urobilinogen Negative (Negative) 08/12/22 20:45 Ur Leukocyte Esterase 2+ (Negative) H 08/12/22 20:45 Urine WBC (Auto) >30 /hpf (0-5) H 08/12/22 20:45 Urine RBC (Auto) 10-30 /hpf (0-4) H 08/12/22 20:45 U Hyaline Cast (Auto) 10-30 /lpf (0-5) H 08/12/22 20:45 U Epithel Cells (Auto) >30 /lpf (0-5) H 08/12/22 20:45 Urine Bacteria (Auto) 4+ (Negative) H 08/12/22 20:45 POC Ur Test NEG (NEG) 08/12/22 21:12 SARS-CoV-2, RNA, NAAT NEGATIVE (NEGATIVE) 08/12/22 21:00 Blood Type O Positive 08/12/22 20:40 Antibody Screen NEGATIVE 08/12/22 20:40 Crossmatch See Detail 08/12/22 20:40 Diagnostic Findings Chest x-ray as per my interpretation cardiomegaly EKG as per my interpretation : Rate 85, NSR, LAD, LAFB, T wave inversion, lateral leads
[2022-08-13] MEDS ORDERED: oxyCODONE HCL IR 5 MG TAB (IMMEDIATE RELEASE) PO PRN (01:40)
[2022-08-13] MEDS: LEVOTHYROXINE SODIUM 75 MCG TABLET PO SCH (06:24)
--- NOTE | 2022-08-13 07:44 | XRay Report ---
XR chest 1V portable CLINICAL HISTORY: Shortness of breath. COMPARISON STUDY: Chest radiograph January 21, 2022. FINDINGS: Lung volumes are normal. There is no pneumothorax or pleural effusion. There is mild enlarg ement of the cardiac silhouette. There is no evidence for consolidation. IMPRESSION: No acute cardiopulmonary findings. No significant change in appearance of the chest. ACT 112: Negative or not required by law. Electronically signed by: Deuce Keita M.D. 08/13/2022 7:43 AM
[2022-08-13] MEDS: amLODIPine BESYLATE 5 MG TAB PO SCH (08:53)
[2022-08-13] MEDS: VENLAFAXINE HCL XR 150 MG CAPXR PO SCH (08:53)
[2022-08-13] MEDS: buPROPion SR 100 MG TABCR PO SCH ×2 (08:54→23:06)
[2022-08-13] MEDS: METOPROLOL SUCC 50MG EXT REL TAB PO SCH (08:54)
[2022-08-13] MEDS: FERROUS SULFATE 325 MG TAB PO SCH ×2 (08:54→23:06)
[2022-08-13] MEDS: LOSARTAN POTASSIUM 50 MG TAB PO SCH (08:54)
--- NOTE | 2022-08-13 10:22 | Ultrasound Report ---
PELVIC ULTRASOUND CLINICAL HISTORY: MENORRHAGIA COMPARISON STUDY: Pelvic ultrasound May 16, 2021. TECHNIQUE: Transabdominal and transvaginal sonography of the pelvis was performed. FINDINGS: Uterus measures 11.9 x 7.1 x 6.3 cm. The endometrium is not well delineated on these images but is thickened with increased vascularity and heterogeneity. Endometrium measures approximately 2. 8 cm in thickness. Similar findings were shown on prior ultrasound of May 16, 2021. The ovaries were not visualized. There is no free fluid. There is no adnexal mass. IMPRESSION: 1. Significant endometrial thickening, similar to prior ultrasound of May 16, 2021. This be marianne elated with phase of menstrual cycle/menopausal status but is considered abnormal. Differential consi derations include endometrial hyperplasia, polyp and carcinoma. Consideration for tissue sampling is recommended. 2. Nonvisualization of the ovaries. ACT 112: Negative or not required by law. Electronically signed by: Deuce Keita M.D. 08/13/2022 10:21 AM
[2022-08-13] MEDS: DOXYCYCLINE HYCLATE 100 MG CAP PO SCH ×2 (10:58→23:40)
[2022-08-13 11:20] LABS: Partial Thromboplastin Ratio 0.8; Partial Thromboplastin Time 21.1 Seconds (21.0-31.0); Prothrombin Time 11.1 Seconds (9.0-12.0)
[2022-08-13] MEDS: LORATADINE 10 MG TAB PO SCH (11:20)
[2022-08-13] MEDS ORDERED: IRON SUCROSE 200 MG in 0.9 % SODIUM CHLORIDE 100 ML IV ONE (14:00)
--- NOTE | 2022-08-13 14:13 | Hospitalist Progress Note ---
Date of Service August 13, 2022 Assessment & Plan (1) Symptomatic anemia: Plan: Symptomatic anemia Chronic Blood loss anemia Chronic Menorrhagia In setting of Iron deficiency, CKD H/O intolerance to oral iron supplements FOBT pending HCG < 1 Normal PT/INR vWF, Factor VIII, APTT pending S/P 3 units PRBCs Will Transfuse IV Venofer Monitor H&H Transfuse PRBCs as needed Consider hematology follow-up as outpatient Will obtain peripheral smear, hemolytic work up, Vit B12 levels for completeness Avoid anticoagulants Menorrhagia --Pelvic USD:Significant endometrial thickening, similar to prior ultrasound of May 16, 2021. This be correlated with phase of menstrual cycle/menopausal status but is considered abnormal. Differential considerations include endometrial hyperplasia, polyp and carcinoma. Consideration for tissue sampling is recommended. Nonvisualization of the ovaries. -- We will defer further work-up to [facility] --[facility] consulted Hypertension Continue metoprolol, losartan Bronchial asthma No exacerbation Continue home inhalers as needed CKD III Cr at baseline Monitor renal function Pituitary cyst Follows with [facility] Endocrinology Prediabetes HbA1C 5.9 H/O PCOS H/O fibromyalgia Mood disorder/personality disorder as per records Continue home meds DVT Px: SCDs Code Status Full code Admission and Anticipated Discharge Date Admission Date: August 13, 2022 Subjective Patient is seen and examined at bedside States having ongoing known expectorant cough Reports dyspnea on exertion Denies any chest pain, dizziness, nausea, abdominal pain Offers no other complaints Also denies any active bleeding issues Review of Systems Review of Systems: All systems reviewed & are unremarkable except as noted in Subjective Physical Exam Physical Exam: Physical Exam: Vitals signs as noted above General Appearance:Morbidly Obese, no apparent distress Head: normocephalic, Atraumatic Eyes: normal inspection, EOMI Neck: supple, Trachea midline Respiratory/Chest: Normal breath sounds, CTA, No accessory muscle use Cardiovascular: S1, S2, No murmur Abdomen/GI:Soft, Non tender, Bowel sounds present Extremities/Musculoskeletal:normal inspection, Trace edema Neurologic/Psych:AAOX3, grossly no focal neurological deficits Skin: normal color, warm Results & Data Results & Data ([facility]) Vital Signs (Past 12 Hours) Vital Signs Temp Pulse Resp BP Pulse Ox 08/13/22 08:00 70 16 97 08/13/22 06:30 72 20 96 08/13/22 06:30 150/61 H 08/13/22 06:00 71 20 96 08/13/22 06:00 154/70 H 08/13/22 05:45 155/70 H 08/13/22 05:45 71 20 96 08/13/22 05:30 70 22 95 08/13/22 05:30 157/70 H 08/13/22 05:20 76 21 99 08/13/22 05:20 155/71 H 08/13/22 07:17 37 C 70 20 150/61 H 98 08/13/22 04:10 36.9 C 70 21 154/72 H 100 08/13/22 06:38 36.9 C 72 20 150/61 H 99 08/13/22 06:15 36.9 C 73 22 154/70 H 98 08/13/22 05:18 36.6 C 74 16 155/71 H 100 08/13/22 05:00 71 19 139/70 96 08/13/22 04:45 72 19 148/61 H 98 08/13/22 04:42 72 19 151/67 H 98 08/13/22 05:14 37.2 C 71 16 139/71 100 08/13/22 04:31 151/72 H 08/13/22 04:01 70 23 154/72 H 99 08/13/22 04:00 69 19 154/72 H 99 08/13/22 03:30 72 24 150/80 H 99 08/13/22 03:01 70 22 142/49 H 100 08/13/22 04:40 36.8 C 98 H 16 151/72 H 97 08/13/22 03:30 36.9 C 74 16 140/90 100 08/13/22 04:30 36.9 C 74 16 150/80 H 100 08/13/22 04:24 36.9 C 74 16 154/72 H 100 08/13/22 03:15 36.8 C 72 16 142/49 H 100 08/13/22 03:00 71 22 100 08/13/22 02:31 74 20 150/69 H 99 08/13/22 02:15 36.9 C 74 16 144/75 H 98 Laboratory Results Short CBC 08/12/22 Range/Units 19:52 WBC 13.46 H (4.8-10.8) K/ul Hgb 5.7 L* (12.0-16.0) g/dl Hct 21.7 L (34.1-44.9) % Plt Count 322 (130-400) K/uL BMP 08/12/22 19:52 Sodium 135 L Potassium 3.7 Chloride 101 Carbon Dioxide 22 BUN 23 Creatinine 1.29 H Glucose 129 H Calcium 9.0 Liver Function 08/12/22 Range/Units 19:52 Total Bilirubin 0.3 (0.2-1.0) mg/dl AST 11 L (13-39) U/L ALT 10 (7-52) U/L Alkaline Phosphatase 101 (34-104) U/L Albumin 3.9 (3.4-5.0) gm/dl Urine 08/12/22 Range/Units 20:45 Urine Color Yellow Urine Appearance Cloudy A (Clear) Urine pH 6.0 (4.5-7.5) Ur Specific [place] 1.016 (1.000-1.030) Urine Protein Trace H (Negative) Urine Glucose (UA) Negative (Negative)
[2022-08-13 15:03] LABS: Hematocrit (blood only) 28.9 % (34.1-44.9); Hemoglobin 8.3 g/dl (12.0-16.0)
[2022-08-13] MEDS ORDERED: IBUPROFEN 800 MG TAB PO STA (17:39)
[2022-08-13] MEDS ORDERED: FERRIC SUBSULFATE 8 GM VIAL TOP ONE (18:07)
--- NOTE | 2022-08-13 19:06 | Electrocardiogram Report ---
Test Reason : Blood Pressure : / mmHG Vent. Rate : 084 BPM Atrial Rate : 084 BPM P-R Int : 206 ms QRS Dur : 098 ms QT Int : 392 ms P-R-T Axes : 000 -19 149 degrees QTc Int : 463 ms Normal sinus rhythm possible Lateral infarct , age undetermined Abnormal ECG When compared with ECG of 21-JAN-2022 18:47, Lateral infarct is now Present Confirmed by Elliott Albrecht ([id number]) on 08/13/2022 7:06:20 PM Referred By: Jo Ann Valle Confirmed By:Steve Albrecht
--- NOTE | 2022-08-13 19:11 | OB/GYN Consultation ---
Date of Consultation August 13, 2022 Assessment & Plan (1) Symptomatic anemia: (2) Microcytic anemia: (3) Abnormal uterine bleedin-year-old -0-0-1 perimenopausal female who has a long history of heavy menstrual periods, abnormal uterine bleeding, with multiple blood transfusion visits, Admitted yesterday for blood transfusions, received 3 units of packed red blood cell, now with hemoglobin of 8, No bleeding for the last 2 to 3 days per her, Pelvic ultrasound is abnormal with abnormally thickened endometrium suggesting either a focal lesion, hyperplasia or cancer, Recommended to start with endometrial biopsy here and most likely will need hysteroscopy and excision of lesion, D&C in the near future depending on pathology results or bleeding pattern, Aygestin 10 mg twice daily to slow down bleeding, I will let her know with pathology results and the plan, All questions were answered. (4) Abnormal pelvic ultrasound: (5) Thickened endometrium: History of Present Illness Reason for Consultation: Heavy periods, anemia Attending Physician: Rodolfo Gibson MD History of Present Illness Patient is a 51 yo perimenopausal female who has long h/o HMB/ Menorrhagia, over 10 years She is not a good historian, she went to see showroom sales consultant about 10 years ago and does not remember what happened. She has been having HMB every month, lasting for 3-4 weeks, with relief of 2-3 days only. She was passing very large cloths on 05/2021 when she was here and received 3 units of PRBCC, US was abnormal with thickened endometrium. She was referred to [facility] office but she did not show up to her appointment with Dr Briones at [facility]. She received another PRBCC on 11/2021 AND was admitted again yesterday with HB of 5. She was given 3 units of PBCC and her HB is 8 now. She was kept here due to no beds in medical floor. She is upset about that. She denies vaginal bleeding for the last 2 to 3 days. Has not been sexually active, she was about 10 years ago. She had full-term vaginal delivery at age 19, that was only for her. She has not been using any contraception due to being on abstinence. I discussed with her details of her US with abnormally thickened endometrium and recommended to start with endometrial biopsy with Pipelle here. Discussed possible diagnosis: benign fibroid, poluyp vs endometrial hyperplasia, precancer or cancer lesions. Discussed this biopsy today may not be sufficient and she may require further surgery to rule out endometrial ca. It can be done under anesthesia with Hysteroscopy and removal of whole lesion. After discussion she stated "let's get this done while I am here. I want this to be over." She has signed an informed consent. I offered her ibuprofen before procedure but patient declined and she said she is covered. Endometrial biopsy: Patient is placed in dorsolithotomy position. A speculum is placed in the vagina and cervix was visualized. It was clean and no blood was noted. Pap smear was collected with intracervical canal brush as well as spatula. They were placed in ThinPrep solution and sent to pathology. And then the cervix was cleaned with Betadine x3. The cervix was grasped with single-tooth tenaculum at 12 o'clock position. Plastic Pipelle was introduced from cervical canal into the uterine cavity. Small amount of endometrial tissue was suctioned and placed in a cup. And a second Pipelle was introduced from cervical canal to obtain more tissues and again bloody tissue was obtained and placed in the pathology. Then patient star brenda to have bleeding from cervical canal. All the instruments were removed from patient's vagina, the blood was cleaned with sponges and the cervix was visualized to be hemostatic with no bleeding from tenaculum site. And the speculum was removed from patient's vagina. Patient was covered with pad and under drapes. She tolerated procedure well. She understand Pap smear and pathology results ma y take a day or 2 to come back. Plan to start Aygestin now continue twice daily to control bleeding. Patient states she is due for her period and this might be it. Patient understands if she bleeding continues she may need to go to the OR for hysteroscopy and D&C. All questions were answered. Allergies Allergy/AdvReac Type Severity Reaction Status Date / Time aspirin Allergy Severe Anaphylaxis Verified 01/21/22 20:03 acetaminophen Allergy Intermediate Delayed Verified 01/21/22 20:03 (days later) hangover effect hydrocodone Allergy Intermediate Delayed Verified 01/21/22 20:03 (days later) hangover effect oxaprozin [From Daypro] Allergy Intermediate delayed Verified 01/21/22 20:03 (days later) hangover red dye Allergy Intermediate Itchiness Verified 01/21/22 20:03 and hives Home Medications Medication Instructions Recorded Confirmed Type amlodipine 5 mg tablet 5 mg PO DAILY 05/17/21 08/12/22 History bupropion HCl 200 mg tablet,12 hr 200 mg PO BID 05/17/21 08/12/22 History sustained-release cyclobenzaprine 10 mg tablet 10 mg PO BID PRN Pain, Moderate 05/17/21 08/12/22 History furosemide 20 mg tablet 20 mg PO DAILY 05/17/21 08/12/22 History levothyroxine 75 mcg tablet 75 mcg PO DAILYBB 05/17/21 08/12/22 History losartan 100 mg tablet 100 mg PO DAILY 05/17/21 08/12/22 History metoprolol succinate 100 mg 100 mg PO DAILY 05/17/21 08/12/22 History tablet,extended release 24 hr oxycodone 10 mg tablet 10 mg PO QID PRN Severe Pain 05/17/21 08/12/22 History (Scale Score 7-10) loratadine-pseudoephedrine ER 10 1 tab PO DAILY 11/06/21 08/12/22 History mg-240 mg tablet,extended [id number] (Claritin-D 24 Hour) ascorbic acid (vitamin C) 1,000 mg 1 g PO DAILY 01/21/22 08/12/22 History tablet (Vitamin C) ferrous sulfate 325 mg (65 mg 325 mg PO BID #60 tabs 01/23/22 08/12/22 Rx iron) tablet albuterol sulfate 90 mcg/actuation 2 puff inhalation Q4H PRN Wheezing 08/12/22 08/12/22 History aerosol inhaler ofloxacin 0.3 % eye drops 4 drp otic (ear) BID PRN Ear Pain 08/12/22 08/12/22 History venlafaxine 150 mg 300 mg PO DAILY 08/12/22 08/12/22 History capsule,extended release 24 hr Patient History Medical History Anemia Arthritis Asthma Depression Environmental allergies High blood pressure Surgical History H/O carpal tunnel repair History of orthopedic surgery Social History Smoking Status: Never smoker Second Hand Exposure: Yes; Hx Alcohol Use: No Hx Substance Use: No Preferred Language: Greek Communication Ability: Effective Paleology Professor Required: No Beliefs That Will Affect Care: None Current Living Situation: Alone How many Children do You have: 0 Feels Safe at Home: Yes Assistive Devices: None Review of Systems Constitutional: as per Subjective / HPI Physical Exam Constitutional: WD/WN, vitals as above well developed, well nourished, + obese and comfortable Gastrointestinal (Abdomen): normal bowel sounds, soft, nontender, no hepatosplenomegaly Genitourinary: normal external appearance (No bleeding) See endometrial b iopsy note. Results & Data ([facility]) Vital Signs (Past 12 Hours) Vital Signs Temp Pulse Resp BP Pulse Ox 08/13/22 14:00 66 22 150/61 H 96 08/13/22 12:00 67 20 95 08/13/22 08:00 70 16 97 08/13/22 07:17 37 C 70 20 150/61 H 98 Laboratory Results Lab Results 08/12/22 08/12/22 08/12/22 Range/Units 19:52 19:52 19:52 WBC 13.46 H (4.8-10.8) K/ul RBC 3.38 L (3.93-5.22) M/uL Hgb 5.7 L* (12.0-16.0) g/dl Hct 21.7 L (34.1-44.9) % MCV 64.2 L (80.0-100.0) fL MCH 16.9 L (25.0-34.0) pg MCHC 26.3 L (32.0-36.0) g/dL RDW Std Deviation 43.7 (36.4-46.3) fL RDW Coeff of Raul 19.0 H (11.5-14.5) % Plt Count 322 (130-400) K/uL MPV 10.1 (9.4-12.3) fL Immature Gran % (Auto) 0.4 % Neut % (Auto) 72.1 % Lymph % (Auto) 17.4 % [place] % (Auto) 7.9 % Eos % (Auto) 1.5 % Baso % (Auto) 0.7 % Neut # (Auto) 9.71 H (1.4-6.5) K/uL Lymph # (Auto) 2.34 (1.2-3.4) K/uL [place] # (Auto) 1.06 H (0.24-0.82) K/uL Eos # (Auto) 0.20 (0-0.50) K/uL Baso # (Auto) 0.09 (0-0.2) K/uL Immature Gran # (Auto) 0.06 H (0.00-0.02) K/uL Absolute Nucleated RBC 0.11 H (0-0) K/uL Nucleated RBC % (auto) 0.8 % Hypochromasia Present Tear Drop Cells 1+ Ovalocytes 1+ PT (9.0-12.0) Seconds INR (0.9-1.1) APTT (21.0-31.0) Seconds PTT Ratio Sodium 135 L (136-145) mmol/L Potassium 3.7 (3.5-5.1) mmol/L Chloride 101 (98-107) mmol/L Carbon Dioxide 22 (21-32) mmol/L Anion Gap 12 H (3-11) BUN 23 (6-23) mg/dl Creatinine 1.29 H (0.6-1.2) mg/dl Est Cr Clr Drug Dosing Not Reportable Est GFR ( Amer) 54.8 ml/min Est GFR (Non-Af Amer) 47.2 ml/min BUN/Creatinine Ratio 17.8 (10-20) Glucose 129 H (70-99(Fasting)) mg/dl Calcium 9.0 (8.5-10.1) mg/dl Magnesium (1.7-2.4) mg/dl Iron (35-150) mcg/dl TIBC (250-450) mcg/dl Unsaturated IBC (155-355) mcg/dl Transferrin % Sat (15-50) % Total Bilirubin 0.3 (0.2-1.0) mg/dl AST 11 L (13-39) U/L ALT 10 (7-52) U/L Alkaline Phosphatase 101 (34-104) U/L Troponin I High Sens 9.2 (0-14) pg/ml Total Protein 7.3 (6.0-8.3) gm/dl Albumin 3.9 (3.4-5.0) gm/dl Globulin 3.4 (2.5-4.0) gm/dl Albumin/Globulin Ratio 1.1 (0.9-2) HCG, Quant mIU/ml Urine Color Urine Appearance (Clear) Urine pH (4.5-7.5) Ur Specific Ward (1.000-1.030) Urine Protein (Negative) Urine Glucose (UA) (Negative) Urine Ketones (Negative) Urine Blood (Negative) Urine Nitrite (Negative) Urine Bilirubin (Negative) Urine Urobilinogen (Negative) Ur Leukocyte Esterase (Negative) Urine WBC (Auto) (0-5) /hpf Urine RBC (Auto) (0-4) /hpf U Hyaline Cast (Auto) (0-5) /lpf U Epithel Cells (Auto) (0-5) /lpf Urine Bacteria (Auto) (Negative) POC Ur Test (NEG) SARS-CoV-2, RNA, NAAT (NEGATIVE) Blood Type Antibody Screen Crossmatch 08/12/22 08/12/22 08/12/22 Range/Units 19:52 19:52 20:40 WBC (4.8-10.8) K/ul RBC (3.93-5.22) M/uL Hgb (12.0-16.0) g/dl Hct (34.1-44.9) % MCV (80.0-100.0) fL MCH (25.0-34.0) pg MCHC (32.0-36.0) g/dL RDW Std Deviation (36.4-46.3) fL RDW Coeff of Raul (11.5-14.5) % Plt Count (130-400) K/uL MPV (9.4-12.3) fL Immature Gran % (Auto) % Neut % (Auto) % Lymph % (Auto) % [place] % (Auto) % Eos % (Auto) % Baso % (Auto) % Neut # (Auto) (1.4-6.5) K/uL Lymph # (Auto) (1.2-3.4) K/uL [place] # (Auto) (0.24-0.82) K/uL Eos # (Auto) (0-0.50) K/uL Baso # (Auto) (0-0.2) K/uL Immature Gran # (Auto) (0.00-0.02) K/uL Absolute Nucleated RBC (0-0) K/uL Nucleated RBC % (auto) % Hypochromasia Tear Drop Cells Ovalocytes PT (9.0-12.0) Seconds INR (0.9-1.1) APTT (21.0-31.0) Seconds PTT Ratio Sodium (136-145) mmol/L Potassium (3.5-5.1) mmol/L Chloride (98-107) mmol/L Carbon Dioxide (21-32) mmol/L Anion Gap (3-11) BUN (6-23) mg/dl Creatinine (0.6-1.2) mg/dl Est Cr Clr Drug Dosing Est GFR ( Amer) ml/min Est GFR (Non-Af Amer) ml/min BUN/Creatinine Ratio (10-20) Glucose (70-99(Fasting)) mg/dl Calcium (8.5-10.1) mg/dl Magnesium 1.7 (1.7-2.4) mg/dl Iron 16 L (35-150) mcg/dl TIBC 519 H (250-450) mcg/dl Unsaturated IBC 503 H (155-355) mcg/dl Transferrin % Sat 3 L (15-50) % Total Bilirubin (0.2-1.0) mg/dl AST (13-39) U/L ALT (7-52) U/L Alkaline Phosphatase (34-104) U/L Troponin I High Sens (0-14) pg/ml Total Protein (6.0-8.3) gm/dl Albumin (3.4-5.0) gm/dl Globulin (2.5-4.0) gm/dl Albumin/Globulin Ratio (0.9-2) HCG, Quant mIU/ml Urine Color Urine Appearance (Clear) Urine pH (4.5-7.5) Ur Specific Ward (1.000-1.030) Urine Protein (Negative) Urine Glucose (UA) (Negative) Urine Ketones (Negative) Urine Blood (Negative) Urine Nitrite (Negative) Urine Bilirubin (Negative) Urine Urobilinogen (Negative) Ur Leukocyte Esterase (Negative) Urine WBC (Auto) (0-5) /hpf Urine RBC (Auto) (0-4) /hpf U Hyaline Cast (Auto) (0-5) /lpf U Epithel Cells (Auto) (0-5) /lpf Urine Bacteria (Auto) (Negative) POC Ur Test (NEG) SARS-CoV-2, RNA, NAAT (NEGATIVE) Blood Type O Positive Antibody Screen NEGATIVE Crossmatch See Detail 08/12/22 08/12/22 08/12/22 Range/Units 20:45 21:00 21:12 WBC (4.8-10.8) K/ul RBC (3.93-5.22) M/uL Hgb (12.0-16.0) g/dl Hct (34.1-44.9) % MCV (80.0-100.0) fL MCH (25.0-34.0) pg MCHC (32.0-36.0) g/dL RDW Std Deviation (36.4-46.3) fL RDW Coeff of Raul (11.5-14.5) % Plt Count (130-400) K/uL MPV (9.4-12.3) fL Immature Gran % (Auto) % Neut % (Auto) % Lymph % (Auto) % [place] % (Auto) % Eos % (Auto) % Baso % (Auto) % Neut # (Auto) (1.4-6.5) K/uL Lymph # (Auto) (1.2-3.4) K/uL [place] # (Auto) (0.24-0.82) K/uL Eos # (Auto) (0-0.50) K/uL Baso # (Auto) (0-0.2) K/uL Immature Gran # (Auto) (0.00-0.02) K/uL Absolute Nucleated RBC (0-0) K/uL Nucleated RBC % (auto) % Hypochromasia Tear Drop Cells Ovalocytes PT (9.0-12.0) Seconds INR (0.9-1.1) APTT (21.0-31.0) Seconds PTT Ratio Sodium (136-145) mmol/L Potassium (3.5-5.1) mmol/L Chloride (98-107) mmol/L Carbon Dioxide (21-32) mmol/L Anion Gap (3-11) BUN (6-23) mg/dl Creatinine (0.6-1.2) mg/dl Est Cr Clr Drug Dosing Est GFR ( Amer) ml/min Est GFR (Non-Af Amer) ml/min BUN/Creatinine Ratio (10-20) Glucose (70-99(Fasting)) mg/dl Calcium (8.5-10.1) mg/dl Magnesium (1.7-2.4) mg/dl Iron (35-150) mcg/dl TIBC (250-450) mcg/dl Unsaturated IBC (155-355) mcg/dl Transferrin % Sat (15-50) % Total Bilirubin (0.2-1.0) mg/dl AST (13-39) U/L ALT (7-52) U/L Alkaline Phosphatase (34-104) U/L Troponin I High Sens (0-14) pg/ml Total Protein (6.0-8.3) gm/dl Albumin (3.4-5.0) gm/dl Globulin (2.5-4.0) gm/dl Albumin/Globulin Ratio (0.9-2) HCG, Quant mIU/ml Urine Color Yellow Urine Appearance Cloudy A (Clear) Urine pH 6.0 (4.5-7.5) Ur Specific Ward 1.016 (1.000-1.030) Urine Protein Trace H (Negative) Urine Glucose (UA) Negative (Negative) Urine Ketones Negative (Negative) Urine Blood 1+ H (Negative) Urine Nitrite Positive A (Negative) Urine Bilirubin Negative (Negative) Urine Urobilinogen Negative (Negative) Ur Leukocyte Esterase 2+ H (Negative) Urine WBC (Auto) >30 H (0-5) /hpf Urine RBC (Auto) 10-30 H (0-4) /hpf U Hyaline Cast (Auto) 10-30 H (0-5) /lpf U Epithel Cells (Auto) >30 H (0-5) /lpf Urine Bacteria (Auto) 4+ H (Negative) POC Ur Test NEG (NEG) SARS-CoV-2, RNA, NAAT NEGATIVE (NEGATIVE) Blood Type Antibody Screen Crossmatch 08/13/22 08/13/22 08/13/22 Range/Units 10:47 10:47 14:16 WBC (4.8-10.8) K/ul RBC (3.93-5.22) M/uL Hgb 8.3 L (12.0-16.0) g/dl Hct 28.9 L (34.1-44.9) % MCV (80.0-100.0) fL MCH (25.0-34.0) pg MCHC (32.0-36.0) g/dL RDW Std Deviation (36.4-46.3) fL RDW Coeff of Raul (11.5-14.5) % Plt Count (130-400) K/uL MPV (9.4-12.3) fL Immature Gran % (Auto) % Neut % (Auto) % Lymph % (Auto) % [place] % (Auto) % Eos % (Auto) % Baso % (Auto) % Neut # (Auto) (1.4-6.5) K/uL Lymph # (Auto) (1.2-3.4) K/uL [place] # (Auto) (0.24-0.82) K/uL Eos # (Auto) (0-0.50) K/uL Baso # (Auto) (0-0.2) K/uL Immature Gran # (Auto) (0.00-0.02) K/uL Absolute Nucleated RBC (0-0) K/uL Nucleated RBC % (auto) % Hypochromasia Tear Drop Cells Ovalocytes PT 11.1 (9.0-12.0) Seconds INR 1.0 (0.9-1.1) APTT 21.1 (21.0-31.0) Seconds PTT Ratio 0.8 Sodium (136-145) mmol/L Potassium (3.5-5.1) mmol/L Chloride (98-107) mmol/L Carbon Dioxide (21-32) mmol/L Anion Gap (3-11) BUN (6-23) mg/dl Creatinine (0.6-1.2) mg/dl Est Cr Clr Drug Dosing Est GFR ( Amer) ml/min Est GFR (Non-Af Amer) ml/min BUN/Creatinine Ratio (10-20) Glucose (70-99(Fasting)) mg/dl Calcium (8.5-10.1) mg/dl Magnesium (1.7-2.4) mg/dl Iron (35-150) mcg/dl TIBC (250-450) mcg/dl Unsaturated IBC (155-355) mcg/dl Transferrin % Sat (15-50) % Total Bilirubin (0.2-1.0) mg/dl AST (13-39) U/L ALT (7-52) U/L Alkaline Phosphatase (34-104) U/L Troponin I High Sens (0-14) pg/ml Total Protein (6.0-8.3) gm/dl Albumin (3.4-5.0) gm/dl Globulin (2.5-4.0) gm/dl Albumin/Globulin Ratio (0.9-2) HCG, Quant < 1 mIU/ml Urine Color Urine Appearance (Clear) Urine pH (4.5-7.5) Ur Specific Ward (1.000-1.030) Urine Protein (Negative) Urine Glucose (UA) (Negative) Urine Ketones (Negative) Urine Blood (Negative) Urine Nitrite (Negative) Urine Bilirubin (Negative) Urine Urobilinogen (Negative) Ur Leukocyte Esterase (Negative) Urine WBC (Auto) (0-5) /hpf Urine RBC (Auto) (0-4) /hpf U Hyaline Cast (Auto) (0-5) /lpf U Epithel Cells (Auto) (0-5) /lpf Urine Bacteria (Auto) (Negative) POC Ur Test (NEG) SARS-CoV-2, RNA, NAAT (NEGATIVE) Blood Type Antibody Screen Crossmatch
[2022-08-13] MEDS: NORETHINDRONE 5 MG TAB PO SCH (22:42)
[2022-08-14 07:38] LABS: Hematocrit (blood only) 26.4 % (34.1-44.9); Hemoglobin 7.8 g/dl (12.0-16.0); Mean Corpuscular Hemoglobin 21.3 pg (25.0-34.0); Mean Corpuscular Hgb Conc 29.5 g/dL (32.0-36.0); Mean Corpuscular Volume 71.9 fL (80.0-100.0); Mean Platelet Volume 10.4 fL (9.4-12.3); Nucleated RBC # (auto) 0.13 K/uL (0-0); Nucleated RBC % (auto) 1.1 %; Platelet Count 221 K/uL (130-400); RDW Coefficient of Variation 24.8 % (11.5-14.5); RDW Standard Deviation 62.7 fL (36.4-46.3); Red Blood Count 3.67 M/uL (3.93-5.22); White Blood Count 11.68 K/ul (4.8-10.8)
[2022-08-14 07:44] LABS: BUN Creatinine Ratio 19.2 (10-20); Calcium 8.5 mg/dl (8.5-10.1); Creatinine Clr Calc Pharmacy 93.3 ml/min; Est GFR (Non-African American) 61.3 ml/min; Potassium 4.2 mmol/L (3.5-5.1)
[2022-08-14 08:23] LABS: Basophils # (auto) 0.07 K/uL (0-0.2); Basophils % (auto) 0.6 %; Eosinophils # (auto) 0.28 K/uL (0-0.50); Eosinophils % (auto) 2.4 %; Hypochromasia Present; Immature Granulocytes # (auto) 0.11 K/uL (0.00-0.02); Immature Granulocytes % (auto) 0.9 %; Lymphocytes # (auto) 1.79 K/uL (1.2-3.4); Lymphocytes % (auto) 15.3 %; Monocytes # (auto) 0.92 K/uL (0.24-0.82); Monocytes % (auto) 7.9 %; Neutrophils # (auto) 8.51 K/uL (1.4-6.5); Neutrophils % (auto) 72.9 %; Reticulocyte % 2.3 % (0.5-2.0); Reticulocytes # 0.08 10^6/uL (0.02-0.10)
[2022-08-14] MEDS: DOXYCYCLINE HYCLATE 100 MG CAP PO SCH (08:42)
[2022-08-14] MEDS: buPROPion SR 100 MG TABCR PO SCH (08:42)
[2022-08-14] MEDS: NORETHINDRONE 5 MG TAB PO SCH (08:42)
[2022-08-14] MEDS: METOPROLOL SUCC 50MG EXT REL TAB PO SCH (08:43)
[2022-08-14] MEDS: LOSARTAN POTASSIUM 50 MG TAB PO SCH (08:43)
[2022-08-14] MEDS: FERROUS SULFATE 325 MG TAB PO SCH ×2 (08:43→08:45)
[2022-08-14] MEDS: amLODIPine BESYLATE 5 MG TAB PO SCH (08:43)
[2022-08-14] MEDS: VENLAFAXINE HCL XR 150 MG CAPXR PO SCH (08:43)
[2022-08-14] MEDS: LORATADINE 10 MG TAB PO SCH (08:46)
[2022-08-14] MEDS: LEVOTHYROXINE SODIUM 75 MCG TABLET PO SCH (08:47)
[2022-08-14] MEDS ORDERED: cefTRIAXone SODIUM 1,000 MG in DEXTROSE 5% AD-VAN 50 ML IV SCH (09:45)
[2022-08-14] MEDS ORDERED: cefTRIAXone SODIUM 2,000 MG in DEXTROSE 5% 50 ML IV SCH (10:00)
[2022-08-14] MEDS ORDERED: IRON SUCROSE 200 MG in 0.9 % SODIUM CHLORIDE 100 ML IV ONE (10:00)
[2022-08-14 11:18] VITALS: BP 133/75; TEMP 97.9; O2SAT 96
--- NOTE | 2022-08-14 14:04 | Hospitalist Progress Note ---
Date of Service August 14, 2022 Assessment & Plan (1) Symptomatic anemia: Plan: Symptomatic anemia Chronic Blood loss anemia Chronic Menorrhagia In setting of Iron deficiency, CKD H/O intolerance to oral iron supplements FOBT pending HCG < 1 Normal PT/INR Normal LDH, B 12 levels vWF, Factor VIII, APTT, haptoglobin pending Peripheral smear suggestive of iron deficiency anemia, not suggestive of hemolytic anemia, MDS/MPN S/P 3 units PRBCs Received IV Venofer Monitor H&H Transfuse PRBCs as needed Avoid anticoagulants Patient prefers to be discharged home today. Advised to follow-up with PCP BRIAN with repeat blood work. Menorrhagia --Pelvic USD:Significant endometrial thickening, similar to prior ultrasound of May 16, 2021. This be correlated with phase of menstrual cycle/menopausal status but is considered abnormal. Differential considerations include endometrial hyperplasia, polyp and carcinoma. Consideration for tissue sampling is recommended. Nonvisualization of the ovaries. --S/P endometrial biopsy --Pathology pending --HPV E6/E7 mRNA pending --Appreciate FINANCIAL SPECIALIST Input --Started on Norethindrone 10mg BID -- Further management based on pathology results --Needs follow-up with FINANCIAL SPECIALIST upon discharge UTI-POA Urine culture growing E. coli Received ceftriaxone Plan to discharge on p.o. 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[place] Prediabetes HbA1C 5.9 H/O PCOS H/O fibromyalgia Mood disorder/personality disorder as per records Continue home meds DVT Px: SCDs Code Status Full code Disposition Home Admission and Anticipated Discharge Date Admission Date: August 13, 2022 Subjective Patient is seen and examined at bedside States feeling better today Dyspnea on exertion much improved Cough is improved as well Denies any bleeding issues Also denies any chest pain, dizziness, nausea, abdominal pain Wants to be discharged home Review of Systems Review of Systems: All systems reviewed & are unremarkable except as noted in Subjective Physical Exam Physical Exam: Physical Exam: Vitals signs as noted above General Appearance:Morbidly Obese, no apparent distress Head: normocephalic, Atraumatic Eyes: normal inspection, EOMI Neck: supple, Trachea midline Respiratory/Chest: Normal breath sounds, CTA, No accessory muscle use Cardiovascular: S1, S2, No murmur Abdomen/GI:Soft, Non tender, Bowel sounds present Extremities/Musculoskeletal:normal inspection, Trace edema Neurologic/Psych:AAOX3, grossly no focal neurological deficits Skin: normal color, warm Results & Data Results & Data ([facility]) Vital Signs (Past 12 Hours) Vital Signs Temp Pulse Pulse Resp BP Pulse Ox O2 Del Method 08/14/22 11:17 36.6 C 63 18 133/75 96 Room Air 08/14/22 09:21 64 08/14/22 07:48 36.7 C 66 18 114/66 97 Room Air 08/14/22 03:00 36.4 C L 68 20 126/66 96 Room Air Laboratory Results Short CBC 08/13/22 08/14/22 Range/Units 14:16 06:33 WBC 11.68 H (4.8-10.8) K/ul Hgb 8.3 L 7.8 L (12.0-16.0) g/dl Hct 28.9 L 26.4 L (34.1-44.9) % Plt Count 221 (130-400) K/uL BMP 08/14/22 06:33 Sodium 136 Potassium 4.2 Chloride 107 Carbon Dioxide 23 BUN 20 Creatinine 1.04 Glucose 109 H Calcium 8.5
[2022-08-14 14:38] VITALS: PULSE 65
--- NOTE | 2022-08-14 14:39 | Discharge Summary ---
Date of Service August 14, 2022 Admission HPI Per Admitting Provider History obtained from patient and records. Medical history significant for hypertension, bronchial asthma, CRI (baseline creatinine 1.5 ), chronic anemia (baseline hemoglobin 7-8), pituitary cyst, prediabetes, PCOS, fibromyalgia, mood disorder, personality disorder as per records. Last confinement January 2022 for symptomatic anemia attributed to menorrhagia. Iron deficiency anemia on work-up. Patient refused imaging and pelvic exam recommended by assistant plant manager. Outpatient gynecology appointment recommended. Patient unable to comply with outpatient appointments. 2 months ago, patient noted gradually worsening shortness of breath on exertion. Started with a respiratory tract infection. Not sure about COVID-19 contacts. Patient has not received COVID-19 vaccination. Cough symptoms productive of clear sputum clearing up. Some chest pressure from coughing. Vaginal bleeding from periods not more than usual. Patient denies abdominal pain, black/bloody stools. Worsening symptoms noted in the last week. Patient seen at PCP's office yesterday. Patient directed to ER for evaluation. Hemoglobin noted to be 5.7 3 units packed RBC transfused at the ER. Medical History as above Surgical History : Endometrial biopsy, carpal tunnel surgery, Achilles tendon repair Family History : Breast cancer, heart disease Personal/Social history : Non-smoker, rare EtOH intake, unemployed Admission Exam Per Admitting Provider Physical Exam Physical Exam: GENERAL: Comfortable, morbidly obese, no respiratory distress SKIN: Pallor warm HEENT: Pale palpebral conjunctivae, no ptosis, dry buccal mucosa NECK : Supple, short neck, no tenderness CHEST : CTA, no tenderness HEART : RRR, no obvious murmurs ABDOMEN: Some distention, nontender RECTAL : Refused EXTREMITIES : Minimal LE swelling, no LE tenderness, no other conspicuous deformities noted NEUROLOGIC : Coherent, no facial asymmetry, no other gross focality Principal Diagnosis Symptomatic anemia Chronic Menorrhagia Urinary tract infection Iron deficiency anemia Bronchitis Discharge Data Allergies Allergy/AdvReac Type Severity Reaction Status Date / Time aspirin Allergy Severe Anaphylaxis Verified 01/21/22 20:03 acetaminophen Allergy Intermediate Delayed Verified 01/21/22 20:03 (days later) hangover effect hydrocodone Allergy Intermediate Delayed Verified 01/21/22 20:03 (days later) hangover effect oxaprozin [From Daypro] Allergy Intermediate delayed Verified 01/21/22 20:03 (days later) hangover red dye Allergy Intermediate Itchiness Verified 01/21/22 20:03 and hives Consultations 08/12/22 21:41 ED Decision to Admit Stat 08/13/22 08:22 Consult Gynecology Routine Procedures Performed Laboratory Results WBC 11.68 K/ul (4.8-10.8) H 08/14/22 06:33 RBC 3.67 M/uL (3.93-5.22) L 08/14/22 06:33 Hgb 7.8 g/dl (12.0-16.0) L 08/14/22 06:33 Hct 26.4 % (34.1-44.9) L 08/14/22 06:33 MCV 71.9 fL (80.0-100.0) L D 08/14/22 06:33 MCH 21.3 pg (25.0-34.0) L 08/14/22 06:33 MCHC 29.5 g/dL (32.0-36.0) L D 08/14/22 06:33 RDW Std Deviation 62.7 fL (36.4-46.3) H 08/14/22 06:33 RDW Coeff of Raul 24.8 % (11.5-14.5) H 08/14/22 06:33 Plt Count 221 K/uL (130-400) 08/14/22 06:33 MPV 10.4 fL (9.4-12.3) 08/14/22 06:33 Immature Gran % (Auto) 0.9 % 08/14/22 06:33 Neut % (Auto) 72.9 % 08/14/22 06:33 Lymph % (Auto) 15.3 % 08/14/22 06:33 Mellette % (Auto) 7.9 % 08/14/22 06:33 Eos % (Auto) 2.4 % 08/14/22 06:33 Baso % (Auto) 0.6 % 08/14/22 06:33 Reticulocyte % (Auto) 2.3 % (0.5-2.0) H 08/14/22 06:33 Neut # (Auto) 8.51 K/uL (1.4-6.5) H 08/14/22 06:33 Lymph # (Auto) 1.79 K/uL (1.2-3.4) 08/14/22 06:33 Mellette # (Auto) 0.92 K/uL (0.24-0.82) H 08/14/22 06:33 Eos # (Auto) 0.28 K/uL (0-0.50) 08/14/22 06:33 Baso # (Auto) 0.07 K/uL (0-0.2) 08/14/22 06:33 Reticulocyte # 0.08 10^6/uL (0.02-0.10) 08/14/22 06:33 Immature Gran # (Auto) 0.11 K/uL (0.00-0.02) H 08/14/22 06:33 Absolute Nucleated RBC 0.13 K/uL (0-0) H 08/14/22 06:33 Nucleated RBC % (auto) 1.1 % 08/14/22 06:33 Hypochromasia Present 08/14/22 06:33 Tear Drop Cells 1+ 08/12/22 19:52 Ovalocytes 1+ 08/12/22 19:52 Peripher Smr Path Cons 08/14/22 06:33 PT 11.1 Seconds (9.0-12.0) 08/13/22 10:47 INR 1.0 (0.9-1.1) 08/13/22 10:47 APTT 21.1 Seconds (21.0-31.0) 08/13/22 10:47 PTT Ratio 0.8 08/13/22 10:47 Sodium 136 mmol/L (136-145) 08/14/22 06:33 Potassium 4.2 mmol/L (3.5-5.1) 08/14/22 06:33 Chloride 107 mmol/L (98-107) 08/14/22 06:33 Carbon Dioxide 23 mmol/L (21-32) 08/14/22 06:33 Anion Gap 6 (3-11) 08/14/22 06:33 BUN 20 mg/dl (6-23) 08/14/22 06:33 Creatinine 1.04 mg/dl (0.6-1.2) 08/14/22 06:33 Est Cr Clr Drug Dosing 93.3 ml/min 08/14/22 06:33 Est GFR ( Amer) 71.0 ml/min 08/14/22 06:33 Est GFR (Non-Af Amer) 61.3 ml/min 08/14/22 06:33 BUN/Creatinine Ratio 19.2 (10-20) 08/14/22 06:33 Glucose 109 mg/dl (70-99(Fasting)) H 08/14/22 06:33 Calcium 8.5 mg/dl (8.5-10.1) 08/14/22 06:33 Magnesium 1.7 mg/dl (1.7-2.4) 08/12/22 19:52 Iron 16 mcg/dl (35-150) L 08/12/22 19:52 TIBC 519 mcg/dl (250-450) H 08/12/22 19:52 Unsaturated IBC 503 mcg/dl (155-355) H 08/12/22 19:52 Transferrin % Sat 3 % (15-50) L 08/12/22 19:52 Total Bilirubin 0.3 mg/dl (0.2-1.0) 08/12/22 19:52 AST 11 U/L (13-39) L 08/12/22 19:52 ALT 10 U/L (7-52) 08/12/22 19:52 Alkaline Phosphatase 101 U/L (34-104) 08/12/22 19:52 Lactate Dehydrogenase 151 U/L (86-244) 08/14/22 06:33 Troponin I High Sens 9.2 pg/ml (0-14) 08/12/22 19:52 Total Protein 7.3 gm/dl (6.0-8.3) 08/12/22 19:52 Albumin 3.9 gm/dl (3.4-5.0) 08/12/22 19:52 Globulin 3.4 gm/dl (2.5-4.0) 08/12/22 19:52 Albumin/Globulin Ratio 1.1 (0.9-2) 08/12/22 19:52 Vitamin B12 238 pg/ml (180-914) 08/14/22 06:33 HCG, Quant < 1 mIU/ml 08/13/22 10:47 Urine Color Yellow 08/12/22 20:45 Urine Appearance Cloudy (Clear) A 08/12/22 20:45 Urine pH 6.0 (4.5-7.5) 08/12/22 20:45 Ur Specific Roy 1.016 (1.000-1.030) 08/12/22 20:45 Urine Protein Trace (Negative) H 08/12/22 20:45 Urine Glucose (UA) Negative (Negative) 08/12/22 20:45 Urine Ketones Negative (Negative) 08/12/22 20:45 Urine Blood 1+ (Negative) H 08/12/22 20:45 Urine Nitrite Positive (Negative) A 08/12/22 20:45 Urine Bilirubin Negative (Negative) 08/12/22 20:45 Urine Urobilinogen Negative (Negative) 08/12/22 20:45 Ur Leukocyte Esterase 2+ (Negative) H 08/12/22 20:45 Urine WBC (Auto) >30 /hpf (0-5) H 08/12/22 20:45 Urine RBC (Auto) 10-30 /hpf (0-4) H 08/12/22 20:45 U Hyaline Cast (Auto) 10-30 /lpf (0-5) H 08/12/22 20:45 U Epithel Cells (Auto) >30 /lpf (0-5) H 08/12/22 20:45 Urine Bacteria (Auto) 4+ (Negative) H 08/12/22 20:45 POC Ur Test NEG (NEG) 08/12/22 21:12 SARS-CoV-2, RNA, NAAT NEGATIVE (NEGATIVE) 08/12/22 21:00 Blood Type O Positive 08/12/22 20:40 Antibody Screen NEGATIVE 08/12/22 20:40 Crossmatch See Detail 08/12/22 20:40 Impressions Chest X-Ray 08/12/22 20:26 XR chest 1V portable CLINICAL HISTORY: Shortness of breath. COMPARISON STUDY: Chest radiograph January 21, 2022. FINDINGS: Lung volumes are normal. There is no pneumothorax or pleural effusion. There is mild enlargement of the cardiac silhouette. There is no evidence for consolidation. IMPRESSION: No acute cardiopulmonary findings. No significant change in appearance of the chest. ACT 112: Negative or not required by law. Electronically signed by: Deuce Keita M.D. 08/13/2022 7:43 AM Pelvis Ultrasound 08/13/22 08:34 PELVIC ULTRASOUND CLINICAL HISTORY: MENORRHAGIA COMPARISON STUDY: Pelvic ultrasound May 16, 2021. TECHNIQUE: Transabdominal and transvaginal sonography of the pelvis was performed. FINDINGS: Uterus measures 11.9 x 7.1 x 6.3 cm. The endometrium is not well delineated on these images but is thickened with increased vascularity and heterogeneity. Endometrium measures approximately 2.8 cm in thickness. Similar findings were shown on prior ultrasound of May 16, 2021. The ovaries were not visualized. There is no free fluid. There is no adnexal mass. IMPRESSION: 1. Significant endometrial thickening, similar to prior ultrasound of May 16, 2021. This be correlated with phase of menstrual cycle/menopausal status but is considered abnormal. Differential considerations include endometrial hyperplasia, polyp and carcinoma. Consideration for tissue sampling is recommended. 2. Nonvisualization of the ovaries. ACT 112: Negative or not required by law. Electronically signed by: Deuce Keita M.D. 08/13/2022 10:21 AM Ordered Studies 08/13/22 08:34 US pelvic complete Urgent 08/13/22 08:35 US transvaginal Urgent Hospital Course (1) Symptomatic anemia: Symptomatic anemia Chronic Blood loss anemia Chronic Menorrhagia In setting of Iron deficiency, CKD H/O intolerance to oral iron supplements FOBT pending HCG < 1 Normal PT/INR Normal LDH, B 12 levels vWF, Factor VIII, APTT, haptoglobin pending Peripheral smear suggestive of iron deficiency anemia, not suggestive of hemolytic anemia, MDS/MPN S/P 3 units PRBCs Received IV Venofer Monitor H&H Transfuse PRBCs as needed Avoid anticoagulants Patient prefers to be discharged home today. Advised to follow-up with PCP BRIAN with repeat blood work. Menorrhagia --Pelvic USD:Significant endometrial thickening, similar to prior ultrasound of May 16, 2021. This be correlated with phase of menstrual cycle/menopausal status but is considered abnormal. Differential considerations include endom etrial hyperplasia, polyp and carcinoma. Consideration for tissue sampling is recommended. Nonvisualization of the ovaries. --S/P endometrial biopsy --Pathology pending --HPV E6/E7 mRNA pending --Appreciate [employer] OFFICER Input --Started on Norethindrone 10mg BID -- Further management based on pathology results --Needs follow-up with [employer] OFFICER upon discharge UTI-POA Urine culture growing E. coli Received ceftriaxone Plan to discharge on p.o. cefdinir upon discharge Acute Bronchitis-POA CXR:No acute cardiopulmonary findings. No significant change in appearance of the chest. Improving with doxycycline Hypertension Continue metoprolol, losartan Bronchial asthma No exacerbation Continue home inhalers as needed CKD III Cr at baseline Monitor renal function Pituitary cyst [place] [facility] Prediabetes HbA1C 5.9 H/O PCOS H/O fibromyalgia Mood disorder/personality disorder as per records Continue home meds DVT Px: SCDs Code Status Full code Disposition Home Total Time Total Time Spent Total Time Spent (In Minutes): 52 minutes Discharge Plan Discharge Items Patient Disposition: Home - Self-Care Reason For Visit: SYMPTOMATIC ANEMIA Discharge Diagnosis: Symptomatic anemia Chronic Menorrhagia Urinary tract infection Iron deficiency anemia Bronchitis Activity: Per Instructions section Exercise/Sports: Gradually increase as tolerated Non-emergency contact: Primary Care Provider Call non-emergency contact if: you have any medication questions, your pain is concerning for you and you have a fever Follow-up/Referrals: Jo Ann Valle DO [Primary Care Provider] - (Date & Time 08/18/2022 1:10 PM Provider Jo Ann Valle DO Department Family Medicine [facility] ) Pierre Briones MD [Physician] - 08/17/22 10:15 am (At [facility]) Diet: Heart Healthy Addtl Attending Provider Instructions: Follow-up with your primary care physician Dr. Valle on 08/18/2022 1:10 PM Follow-up with your [employer] OFFICER on 08/17/22 at 10:15AM at [facility] as scheduled. --- Complete the antibiotic course cefdinir for urinary tract infection and doxycycline for bronchitis as prescribed. --- Start taking Norethindrone 10mg twice a day as recommended by your assistant plant manager. --Your blood work for anemia, endometrial biopsy pathology results are pending at the time of discharge. Follow-up with your physician for results. --- He will likely require more IV iron transfusions as outpatient. Follow-up with your physician for further recommendations. ---Seek immediate medical attention if your symptoms reoccur or worsen Please take all medications as instructed on discharge list below. Please call if you have any questions or problems. You can reach a [facility] hospitalist on duty at [facility] 24 hours a day by calling [phone] Pending Studies at Discharge: Yes Studies:: vWF, Factor VIII, APTT, haptoglobin levels, HPV E6/E7 mRNA and Pathology results pending Stand-Alone Forms: My [facility], Smoking Cessation Medications and DC Order Prescriptions: New doxycycline hyclate 100 mg Capsule 100 mg PO BID Qty: 11 0RF norethindrone acetate 5 mg Tablet 10 mg PO BID Qty: 60 1RF cefdinir 300 mg capsule 300 mg PO BID Qty: 8 0RF Rx Instructions: Start taking from 08/15/22 Continued cyclobenzaprine 10 mg tablet 10 mg PO BID PRN (Reason: Pain, Moderate) oxycodone 10 mg tablet 10 mg PO QID PRN (Reason: Severe Pain (Scale Score 7-10)) metoprolol succinate 100 mg tablet extended release 24 hr 100 mg PO DAILY levothyroxine 75 mcg tablet 75 mcg PO DAILYBB losartan 100 mg tablet 100 mg PO DAILY furosemide 20 mg tablet 20 mg PO DAILY bupropion HCl 200 mg tablet sustained-release 12 hr 200 mg PO BID Rx Instructions: Patient states she takes differently and takes 400mg in am amlodipine 5 mg tablet 5 mg PO DAILY Claritin-D 24 Hour 10-240 mg Tablet Extended Release 24 Hr 1 tab PO DAILY ascorbic acid (vitamin C) [Vitamin C] 1,000 mg Tablet 1 g PO DAILY ferrous sulfate 325 mg (65 mg iron) tablet 325 mg PO BID Qty: 60 0RF ofloxacin 0.3 % drops 4 drp otic (ear) BID PRN (Reason: Ear Pain) Rx Instructions: PRN for ear pain venlafaxine 150 mg capsule,extended release 24hr 300 mg PO DAILY Rx Instructions: AM albuterol sulfate 90 mcg/actuation HFA aerosol inhaler 2 puff INHALATION Q4H PRN (Reason: Wheezing) Discharge Orders: Discharge Order (Routine); Ordered 08/14/22 Ordered By: Rodolfo Gibson Admission Data Admit Date/Time: 08/13/22 01:27 Attending Provider: Rodolfo Gibson Admit Provider: Ki Kebede Primary Care Provider: Jo Ann Valle Other Providers: Ki Kebede ; Ryan Curtis
--- NOTE | 2022-08-14 20:05 | Electrocardiogram Report ---
Test Reason : Blood Pressure : / mmHG Vent. Rate : 069 BPM Atrial Rate : 069 BPM P-R Int : 184 ms QRS Dur : 098 ms QT Int : 410 ms P-R-T Axes : 066 000 067 degrees QTc Int : 439 ms Normal sinus rhythm Normal ECG When compared with ECG of 12-AUG-2022 19:49, No significant change was found Confirmed by Elliott Albrecht ([id number]) on 08/14/2022 8:05:30 PM Referred By: Jo Ann Valle Confirmed By:Steve Albrecht
[2022-08-19 19:52] LABS: APTT 23 sec (23-32); F8 Activity 271 % normal (50-180); Ristocetin Cofactor 309 % normal (42-200); Von Willebrand Factor Antigen 289 % (50-217)
--- NOTE | 2022-08-22 12:46 | Coding Query ---
PATHOLOGY To promote full compliance with coding requirements relating to patient care, physician participation is requested in all cases of remote coders uncertainty. Please assist us with the question(s) below: Please review the Pathology report and please document any relevant diagnosis(es) below: Diagnosis(es): Adenocarcinoma, endometrioid type, FIGO grade 1 of 3. Thank you for your time, ADRI Barry, [facility]
== END 2022-08-14 15:31 | disposition home or self-care (01) | DRG 744 ==
LOC: ED 19:36 → SUATTDRO 08-13 01:27 → EDINP 08-13 01:27 → 2N 08-13 01:40